=== PATIENT | female | born 1950 | race African-American/Black ===

== ENCOUNTER 2017-04-07 00:20 | Inpatient (IN) | payer OTHER ==
--- NOTE | 2017-04-07 00:35 | PDOC ---
History of Present Illness - General History Source: Family - History of Present Illness Initial Comments: 04/07/17 00:56 66 y/o F with a PMHx of craniotomy s/p brain tumor (1974), HTN. DM, CKD presents to the ED via EMS with AMS since noon. Patient was reportedly sleeping all day. Her home health aide took her out of bed to shower and the patient urinated on herself without realizing. Patient knows her name, what month it is. She has no focal neurological weakness or slurred speech. Family states she can usually name back all of her medications, but today she can only name two. Family is concerned because patient is not herself. Patient denies any complaints. <Lourdes Haines - Last Filed: 04/07/17 03:50> <Yuko Hi - Last Filed: 04/08/17 02:33> - General Stated Complaint: ALTERED MENTAL STATUS Time Seen by Provider: 04/07/17 00:34 Past History <Lourdes Haines - Last Filed: 04/07/17 03:50> - Past Medical History Seizures: Yes - Suicide/Smoking/Psychosocial Hx Smoking Status: No Smoking History: Never smoked Number of Cigarettes Smoked Daily: 0 Hx Alcohol Use: No Drug/Substance Use Hx: No Substance Use Type: None Hx Substance Use Treatment: No <Yuko Hi - Last Filed: 04/08/17 02:33> - Past Medical History Allergies/Adverse Reactions: Allergies Allergy/AdvReac Type Severity Reaction Status Date / Time No Known Allergies Allergy Verified 04/07/17 00:58 Home Medications: Ambulatory Orders Acetaminophen [Tylenol] 650 mg PO Q4H 10/13/12 Bromocriptine Mesylate [Parlodel -] 5 mg PO DAILY #0 tablet 10/16/12 Cortisone Acetate [Cortisone -] 25 mg PO DAILY #0 tablet 10/16/12 Levetiracetam [Keppra -] 500 mg PO BID #0 tablet 10/16/12 Metronidazole [Flagyl -] 250 mg PO Q6HPO #0 tablet 10/16/12 Atorvastatin Ca [Lipitor] 10 mg PO HS 04/07/17 Cholecalciferol (Vitamin D3) [Vitamin D3 -] 1,000 iu PO DAILY 04/07/17 Furosemide [Lasix -] 40 mg PO DAILY 04/07/17 Levothyroxine [Synthroid -] 175 mcg PO DAILY 04/07/17 Phenobarbital 40 mg PO DAILY 04/07/17 Phenobarbital - 30 mg PO TID 04/07/17 Potassium Chloride [K-Dur -] 10 meq PO DAILY 04/07/17 Review of Systems - Review of Systems Comments:: 04/07/17 01:10 GENERAL/CONSTITUTIONAL: No fever or chills. No weakness. HEAD, EYES, EARS, NOSE AND THROAT: No change in vision. No ear pain or discharge. No sore throat. CARDIOVASCULAR: No chest pain or shortness of breath. RESPIRATORY: No cough, wheezing, or hemoptysis. GASTROINTESTINAL: No nausea, vomiting, diarrhea or constipation. GENITOURINARY: No dysuria, frequency, or change in urination. MUSCULOSKELETAL: No joint or muscle swelling or pain. No neck or back pain. SKIN: No rash NEUROLOGIC: No headache, vertigo, loss of consciousness, or change in strength/ sensation. ENDOCRINE: No increased thirst. No abnormal weight change. HEMATOLOGIC/LYMPHATIC: No anemia, easy bleeding, or history of blood clots. ALLERGIC/IMMUNOLOGIC: No hives or skin allergy. <Lourdes Haines A - Last Filed: 04/07/17 03:50> *Physical Exam - Physical Exam Comments: 04/07/17 01:10 GENERAL: Awake, alert, in no acute distress. Obese. HEAD: No signs of trauma EYES: PERRLA, EOMI, sclera anicteric, conjunctiva clear ENT: Auricles normal inspection, hearing grossly normal, nares patent, oropharynx clear without exudates. Moist mucosa NECK: Normal ROM, supple, no lymphadenopathy, JVD, or masses LUNGS: Breath sounds equal, clear to auscultation bilaterally. No wheezes, and no crackles HEART: Regular rate and rhythm, normal S1 and S2, no murmurs, rubs or gallops ABDOMEN: Soft, nontender, normoactive bowel sounds. No guarding, no rebound. No masses EXTREMITIES: Normal range of motion, no edema. No clubbing or cyanosis. No cords, erythema, or tenderness NEUROLOGICAL: Cranial nerves II through XII grossly intact. No slurred speech, motor strength 5/5, follows simple commands SKIN: Warm, Dry, normal turgor, no rashes or lesions noted. <Lourdes Haines - Last Filed: 04/07/17 03:50> - Physical Exam General Appearance: Yes: Obese HEENT: positive: EOMI, MARJ, Normal Voice Neck: positive: Supple Respiratory/Chest: positive: Lungs Clear Cardiovascular: positive: Regular Rhythm, Regular Rate Gastrointestinal/Abdominal: positive: Protuberent Musculoskeletal: positive: Normal Inspection Extremity: positive: Normal Inspection Integumentary: positive: Normal Color, Warm Neurologic: positive: underwriting intern II-XII NML intact (family memebers say she appeared confused today,saying she would get out of bed but not moving.), Alert, Motor Strength 5/5 <Yuko Hi - Last Filed: 04/08/17 02:33> ED Treatment Course - LABORATORY CBC & Chemistry Diagram: 04/07/17 00:50 04/07/17 00:50 <Lourdes Haines - Last Filed: 04/07/17 03:50> - LABORATORY CBC & Chemistry Diagram: 04/07/17 06:10 04/07/17 06:10 <Yuko Hi - Last Filed: 04/08/17 02:33> *DC/Admit/Observation/Transfer - Attestations Scribe Attestion: 04/07/17 01:14 Documentation prepared by Lourdes Haines, acting as medical practice administrator for Yuko Hi MD. <Lourdes Haines - Last Filed: 04/07/17 03:50> <Yuko Hi - Last Filed: 04/08/17 02:33> Diagnosis at time of Disposition: Elevated LFTs, UTI (urinary tract infection), Change in mental status - Discharge Dispostion Condition at time of disposition: Fair - Referrals NIH Stroke Scale - Last Known Well Date/Time & Onset Date Last Known Well: 04/06/17 Time Last Known Well: 12:00 - Initial Evaluation Level of consciousness: Alert Ask patient the month and their age: Answers both correctly Ask patient to open & close eyes; make fist and let go: Obeys both correctly Best gaze (horizontal eye movement): Normal Visual field testing: No visual field loss Facial paresis (Show teeth/raise eyebrows/close eyes tight): Normal symmetrical movement Motor Function: Left Arm: Normal Motor Function: Right Arm: Normal (extends arm 90 (or 45) degrees for 10 seconds without drift Motor Function: Left Leg: Normal (extends leg 30 degrees for 5 seconds without drift) Motor Function: Right Leg: Normal (extends leg 30 degrees for 5 seconds without drift) Limb Ataxia: No ataxia Sensory(Use pinprick test arms,legs,trunk,face/side to side): Normal Best language (Describe picture, name items, read sentences): No Aphasia Dysarthria (read several words): Normal articulation Extinction and Inattention: No abnormality - Total Score NIH Stroke Scale Score: 0 <Yuko Hi - Last Filed: 04/08/17 02:33>
[2017-04-07 00:58] LABS: BASOPHIL 0.6 % (0-2.0); MCH 28.1 pg (25.7-33.7); MCHC 32.6 g/dl (32.0-36.0); MEAN CELL VOLUME 86.1 fl (80-96); MEAN PLT VOLUME 8.9 fl (7.5-11.1); NEUTROPHILS 76.8 % (42.8-82.8); PLATELET COUNT 229 K/MM3 (134-434); RDW 15.1 % (11.6-15.6); WHITE BLOOD COUNT 12.2 K/mm3 (4.0-10.0)
[2017-04-07 01:20] LABS: INR 1.42 (0.82-1.09); PROTHROMBIN TIME (PATIENT) 15.6 SEC (9.98-11.88)
[2017-04-07 01:22] LABS: ALBUMIN 3.2 g/dl (3.4-5.0); ANION GAP 10 (8-16); BILIRUBIN,TOTAL 6.4 mg/dL (0.2-1.0); CO2 24 mmol/L (21-32); CREATININE 1.3 mg/dL (0.55-1.02); GLUCOSE,RANDOM 87 mg/dL (74-106); SGOT/AST 218 U/L (15-37); SGPT/ALT 212 U/L (12-78); TOT PROT 6.6 g/dl (6.4-8.2)
[2017-04-07 01:24] LABS: ALK PHOS 170 U/L (45-117); CPK 281 IU/L (26-192); TROPONIN I 0.06 ng/ml (0.00-0.05)
[2017-04-07] MEDS ORDERED: SODIUM CHLORIDE 1,000 ML IV STA (01:35)
--- NOTE | 2017-04-07 02:27 | PDOC ---
*Physical Exam - Vital Signs Last Vital Signs Temp Pulse Resp BP Pulse Ox 101 F H 75 20 126/73 100 04/07/17 00:53 04/07/17 00:53 04/07/17 00:53 04/07/17 00:53 04/07/17 00:53 - Physical Exam Comments: 04/07/17 03:20 gen: aao, nad heart: +s1s2 reg lungs: cta b/l abd: soft, nt/nd +bs ext: no c/c/e ED Treatment Course - LABORATORY CBC & Chemistry Diagram: 04/07/17 00:50 04/07/17 00:50 - ADDITIONAL ORDERS Additional order review: Laboratory Results 04/07/17 04/07/17 00:50 00:50 PT with INR 15.60 H INR 1.42 H Sodium 147 H Potassium 3.7 Chloride 113 H Carbon Dioxide 24 Anion Gap 10 BUN 12 Creatinine 1.3 H D Creat Clearance w eGFR 40.73 Random Glucose 87 Calcium 8.0 L Total Bilirubin 6.4 H D AST 218 H D ALT 212 H D Alkaline Phosphatase 170 H D Creatine Kinase 281 H Creatine Kinase Index 0.3 CK-MB (CK-2) < 1.000 Troponin I 0.06 H Total Protein 6.6 Albumin 3.2 L D 04/07/17 00:50 RBC 4.67 MCV 86.1 MCHC 32.6 RDW 15.1 D MPV 8.9 Neutrophils % 76.8 D Lymphocytes % 14.1 D Monocytes % 7.5 Eosinophils % 1.0 D Basophils % 0.6 Medical Decision Making - Medical Decision Making 04/07/17 03:20 pt signed out pending UA and further eval of fever and altered MS -pt denies abd pain. No diarrhea. States 1 episode of vomiting earlier today. NO n/v since. Has tolerated PO. no acetaminophen use. Denies pain after eating. 04/07/17 03:35 pt with UTI, will start abx. pt will need admission for further eval of elevated LFTs, UTI, and change in MS. 04/07/17 03:52 case discussed with IM who accepts pt under Dr. hernandez. *DC/Admit/Observation/Transfer Diagnosis at time of Disposition: Elevated liver function tests, Urinary tract infection, Altered mental status - Discharge Dispostion Condition at time of disposition: Fair Admit: Yes - Referrals Referrals: William Mcconnell MD [Primary Care Provider] - - Patient Instructions - Post Discharge Activity - Attestations Physician Attestion: 04/07/17 03:54 I, Dr. Shannon Borges, DO, attest that this document has been prepared under my direction and personally reviewed by me in its entirety. I further attest, that it accurately reflects all work, treatment, procedures and medical decision -making performed by me.
[2017-04-07 02:44] LABS: URINE APPEARANCE SLCLOUDY; URINE BILIRUBIN NEGATIVE (NEGATIVE); URINE BLOOD 2+ (NEGATIVE); URINE COLOR AMBER; URINE GLUCOSE (UA) NEGATIVE (NEGATIVE); URINE KETONE NEGATIVE (NEGATIVE); URINE NITRITE NEGATIVE (NEGATIVE); URINE PROTEIN NEGATIVE (NEGATIVE); URINE UROBILINOGEN NEGATIVE mg/dL (0.2-1.0)
[2017-04-07 02:59] LABS: URINE BACTERIA RARE /hpf (NONE SEEN); URINE RBC 1 /hpf (0-3); URINE WBC 72 /hpf (3-5)
[2017-04-07] MEDS ORDERED: CEFTRIAXONE 1 GM in DEXTROSE 5%-WATER - 50 ML IVPB ONE (03:33)
[2017-04-07] MEDS ORDERED: CEFTRIAXONE 50 ML ONE (03:48)
--- NOTE | 2017-04-07 03:55 | PN ---
Teaching Attending Note Name of Resident: Romina Ogden ATTENDING PHYSICIAN STATEMENT I saw and evaluated the patient. I reviewed the resident's note and discussed the case with the resident. I agree with the resident's findings and plan as documented. SUBJECTIVE: 66 yo F with pmhx of craniotomy s/p tumor resection (95'),, CKD, who presents with lethargy. She has a aide, who states she urinated on herself. Family notes , her recall of meds is not the same. Pt. and family extremely uncooperative on interview and declined to answer ANY questions, information is gathered from chart. OBJECTIVE: Physical: VS: Vital Signs Period Temp Pulse Resp BP Sys/Saleem Pulse Ox Last 24 Hr 101 F 75 20 126/73 100 GEN: NAD, Resting in bed, AA0X3 (person, place and time), did NOT appear lethargic HEENT: NCAT, PERRL, throat without erythema or exudates CARD: RRR S1, S2 RESP: CTAB ABD: BSx4, NON-Tender to palpation EXT: +2 Pitting edema bilateral and equal and declined foot exam. CBCD WBC 12.2 K/mm3 (4.0-10.0) H D 04/07/17 00:50 RBC 4.67 M/mm3 (3.60-5.2) 04/07/17 00:50 Hgb 13.1 GM/dL (10.7-15.3) 04/07/17 00:50 Hct 40.2 % (32.4-45.2) 04/07/17 00:50 MCV 86.1 fl (80-96) 04/07/17 00:50 MCHC 32.6 g/dl (32.0-36.0) 04/07/17 00:50 RDW 15.1 % (11.6-15.6) D 04/07/17 00:50 Plt Count 229 K/MM3 (134-434) 04/07/17 00:50 MPV 8.9 fl (7.5-11.1) 04/07/17 00:50 CMP Sodium 147 mmol/L (136-145) H 04/07/17 00:50 Potassium 3.7 mmol/L (3.5-5.1) 04/07/17 00:50 Chloride 113 mmol/L (98-107) H 04/07/17 00:50 Carbon Dioxide 24 mmol/L (21-32) 04/07/17 00:50 Anion Gap 10 (8-16) 04/07/17 00:50 BUN 12 mg/dL (7-18) 04/07/17 00:50 Creatinine 1.3 mg/dL (0.55-1.02) H D 04/07/17 00:50 Creat Clearance w eGFR 40.73 (>60) 04/07/17 00:50 Random Glucose 87 mg/dL (74-106) 04/07/17 00:50 Calcium 8.0 mg/dL (8.5-10.1) L 04/07/17 00:50 Total Bilirubin 6.4 mg/dL (0.2-1.0) H D 04/07/17 00:50 AST 218 U/L (15-37) H D 04/07/17 00:50 ALT 212 U/L (12-78) H D 04/07/17 00:50 Alkaline Phosphatase 170 U/L (45-117) H D 04/07/17 00:50 Total Protein 6.6 g/dl (6.4-8.2) 04/07/17 00:50 Albumin 3.2 g/dl (3.4-5.0) L D 04/07/17 00:50 CARDIAC ENZYMES Creatine Kinase 281 IU/L (26-192) H 04/07/17 00:50 Troponin I 0.06 ng/ml (0.00-0.05) H 04/07/17 00:50 CXR-Pending Jossy shrestha basilar atelectasis EKG- ASSESSMENT AND PLAN: 66 yo F with pmhx of brain tumor s/p resection, CKD, who presents with lethargy found to be septic 1.) Sepsis - Possible secondary to UTI, ?abdominal pathology-ddx cholangitis - IVF - Abdominal US - Repeat LA - RHODES Cx - Empiric abx, recieved ceftriaxone in ED, add Flagyl for possible gallbladder path 2.) Acute Metabolic Encephalopathy - Stat Ammonia level - Abd us 3.) Transaminits with Hyperbilirubinemia - Chk.D.marj - Abdominal US - Hepatitis Panel 4.) CKD - Unknown Baseline - Last in hospital 2012 - Avoid nephrotoxins 5.) Dvt Ppx - Mod risk - Heparin [address] in Med-Sx
[2017-04-07] MEDS ORDERED: METRONIDAZOLE 500 MG PREMIXED 100 ML IVPB ONE ×2 (04:03→04:24)
--- NOTE | 2017-04-07 04:50 | HP ---
CHIEF COMPLAINT: AMS PCP: William Camp HISTORY OF PRESENT ILLNESS: 66yo F with PMH of craniotomy, seizures, presents with AMS since noon. Of note , hx was taken from the ED chart and previous EMR, as pt and family member were uncooperative and were annoyed that too many doctors had already come to speak to them. Pt was seen by her COAL PICKER today and was reportedly more tired than usual , and sleeping more than she usually does. Pt reportedly urinated on herself without realizing while her COAL PICKER was getting her out of bed for a shower per the chart. Pt denies fever, chills, chest pain, sob, diarrhea, constipation, or any urinary symptoms. Denies abdominal pain. One episode of vomiting reported from earlier today, no nausea/vomiting since. Pt has a hx of seizure disorder, although has been seizure-free. In the ED, pt was noted to be AAOx3, to have a mild leukocytosis, to be febrile to 101, and to have elevated LFTs. Patient usually able to recall all meds and dose currently unsure. ER course was notable for: (1) EKG, CXR, Head CT non-contrast (2) Rocephin (3) NS 1 L bolus PAST MEDICAL HISTORY: [place] hypopituitarism brain ca s/p resection hypothyroidism seizures PAST SURGICAL HISTORY: craniotomy Social History: Smoking: never Alcohol: none Drugs: none Lives at home. Has a Home Health Aide. Allergies No Known Allergies Allergy (Verified 04/07/17 00:58) HOME MEDICATIONS: Home Medications Medication Instructions Recorded Acetaminophen [Tylenol] 650 mg PO Q4H 10/13/12 Bromocriptine Mesylate [Parlodel 5 mg PO DAILY 10/13/12 (NF)] Levothyroxine [Synthroid] 200 mcg PO DAILY 10/13/12 Bromocriptine Mesylate [Parlodel -] 5 mg PO DAILY #0 tablet 10/16/12 Cortisone Acetate [Cortisone -] 25 mg PO DAILY #0 tablet 10/16/12 Levetiracetam [Keppra -] 500 mg PO BID #0 tablet 10/16/12 Levothyroxine [Synthroid -] 200 mcg PO DAILY@0700 #0 tablet 10/16/12 Metronidazole [Flagyl -] 250 mg PO Q6HPO #0 tablet 10/16/12 REVIEW OF SYSTEMS deferred PHYSICAL EXAMINATION deferred Vital Signs - 24 hr 04/07/17 00:53 Temperature 101 F H Pulse Rate 75 Respiratory 20 Rate Blood Pressure 126/73 O2 Sat by Pulse 100 Oximetry (%) Laboratory Results - last 24 hr 04/07/17 04/07/17 04/07/17 00:50 00:50 00:50 WBC 12.2 H D RBC 4.67 Hgb 13.1 Hct 40.2 MCV 86.1 MCH 28.1 MCHC 32.6 RDW 15.1 D Plt Count 229 MPV 8.9 Neutrophils % 76.8 D Lymphocytes % 14.1 D Monocytes % 7.5 Eosinophils % 1.0 D Basophils % 0.6 PT with INR 15.60 H INR 1.42 H Sodium 147 H Potassium 3.7 Chloride 113 H Carbon Dioxide 24 Anion Gap 10 BUN 12 Creatinine 1.3 H D Creat Clearance w eGFR 40.73 Random Glucose 87 Lactic Acid Calcium 8.0 L Total Bilirubin 6.4 H D AST 218 H D ALT 212 H D Alkaline Phosphatase 170 H D Creatine Kinase 281 H Creatine Kinase Index 0.3 CK-MB (CK-2) < 1.000 Troponin I 0.06 H Total Protein 6.6 Albumin 3.2 L D Urine Color Urine Appearance Urine pH Urine Protein Urine Glucose (UA) Urine Ketones Urine Blood Urine Nitrite Urine Bilirubin Urine Urobilinogen Urine RBC Urine WBC Ur Epithelial Cells Urine Bacteria Acetaminophen 04/07/17 04/07/17 04/07/17 02:10 02:10 02:30 WBC RBC Hgb Hct MCV MCH MCHC RDW Plt Count MPV Neutrophils % Lymphocytes % Monocytes % Eosinophils % Basophils % PT with INR INR Sodium Potassium Chloride Carbon Dioxide Anion Gap BUN Creatinine Creat Clearance w eGFR Random Glucose Lactic Acid 1.6 Calcium Total Bilirubin AST ALT Alkaline Phosphatase Creatine Kinase Creatine Kinase Index CK-MB (CK-2) Troponin I Total Protein Albumin Urine Color Melony Urine Appearance Slcloudy Urine pH 7.0 D Urine Protein Negative Urine Glucose (UA) Negative Urine Ketones Negative Urine Blood 2+ H Urine Nitrite Negative Urine Bilirubin Negative Urine Urobilinogen Negative Urine RBC 1 Urine WBC 72 Ur Epithelial Cells Rare Urine Bacteria Rare Acetaminophen < 2.0 L IMAGING: CXR - on my preliminary read, no acute pathology Head CT non-contrast - pending EKG - NSR ASSESSMENT/PLAN: 66yo F with multiple medical problems presents with AMS found to have sepsis, transaminitis, and a UTI. 1) severe sepsis/leukocytosis - likely 2/2 UTI, but a biliary/liver source cannot be excluded with elevated T. bili and LFTs (concern for biliary source) - pt already received Ceftriaxone in ED - will give a dose of Flagyl now to cover gallbladder source - RUQ US to assess for gallbladder obstruction - f/u cultures - ID consult - trend WBC count 2) transaminitis - cannot exclude a biliary source of infection vs shock liver (no documented hypotension) vs autoimmune disease - RUQ US - anti-smooth muscle antibody - hepatitis panel - trend LFTs - fractionate bilirubin - consider GI consult and MRCP based on US results 3) elevated PT/INR - likely 2/2 acute liver process - will trend INR 4) elevated troponin - likely related to demand ischemia 2/2 sepsis - R/O ACS - pt denies chest pain - trend troponins 5) dehydration - pt has dry mucous membranes with a mild hypernatremia - IVFs for hydration - trend Na+ 6) SANJEEV - likely 2/2 sepsis - give IVFs for hydration - trend Cr - avoid nephrotoxic drugs 7) hyperthyroidism - restart Synthroid - check TSH level 8) AMS - likely 2/2 an infectious encephalopathy from UTI vs biliary source - stat ammonia level - treat underlying UTI - pt is currently AAOx3 9) seizure disorder - currently seizure-free - restart keppra 10) brain tumor - restart bromocriptine 11) FEN - Fluids: Lactated Ringers @ 75 ml/hr - Electrolytes: hypernatremia - Nutrition: npo for now 12) Ppx - SCDs / Heparin SQ TID - no GI ppx indicated at this time - PT consult Case discussed with attending. Meds need to be verified Visit type - Emergency Visit Emergency Visit: Yes Care time: The patient presented to the Emergency Department on the above date and was hospitalized for further evaluation of their emergent condition. - New Patient This patient is new to me today: Yes Date on this admission: 04/07/17 - Critical Care Critical Care patient: No
[2017-04-07 06:20] LABS: BASOPHIL 0.5 % (0-2.0); EOSINOPHIL 1.5 % (0-4.5); MCH 29.1 pg (25.7-33.7); MCHC 34.1 g/dl (32.0-36.0); MEAN CELL VOLUME 85.4 fl (80-96); MEAN PLT VOLUME 8.7 fl (7.5-11.1); NEUTROPHILS 80.7 % (42.8-82.8); PLATELET COUNT 214 K/MM3 (134-434); RDW 15.2 % (11.6-15.6); WHITE BLOOD COUNT 10.2 K/mm3 (4.0-10.0)
[2017-04-07 06:38] LABS: ACTIVATED PTT 32.6 SECONDS (26.9-34.4)
[2017-04-07 06:52] LABS: ANION GAP 9 (8-16); CALCIUM 7.7 mg/dL (8.5-10.1); CO2 25 mmol/L (21-32); GLUCOSE,RANDOM 83 mg/dL (74-106); MAGNESIUM 2.4 mg/dL (1.8-2.4)
[2017-04-07 06:53] LABS: CREATININE 1.3 mg/dL (0.55-1.02); PHOSPHOROUS 3.6 mg/dL (2.5-4.9)
[2017-04-07 06:57] LABS: ALK PHOS 158 U/L (45-117); BILIRUBIN,DIRECT 5.7 mg/dL (0.0-0.2); BILIRUBIN,TOTAL 6.8 mg/dL (0.2-1.0); CPK 267 IU/L (26-192); SGOT/AST 158 U/L (15-37); SGPT/ALT 178 U/L (12-78); TOT PROT 6.2 g/dl (6.4-8.2); TROPONIN I 0.05 ng/ml (0.00-0.05)
[2017-04-07] MEDS: LACTATED RINGERS SOLUTION 1,000 ML IV SCH ×2 (07:17→09:37)
[2017-04-07 08:00] LABS: INR 1.46 (0.82-1.09); PROTHROMBIN TIME (PATIENT) 16.1 SEC (9.98-11.88)
[2017-04-07 08:59] LABS: URINE LEUK ESTERASE 1+ (NEGATIVE)
[2017-04-07] MEDS: HEPARIN NA (PORCINE) 5,000 UNITS/ML 1ML VIAL SQ SCH ×2 (09:38→17:59)
[2017-04-07] MEDS: METRONIDAZOLE 500 MG PREMIXED 100 ML IVPB SCH ×2 (09:38→17:58)
[2017-04-07] MEDS ORDERED: levETIRAcetam 500 MG TABLET (FP) PO SCH (10:00)
[2017-04-07 10:49] VITALS: BMI 37.0
[2017-04-07 12:33] LABS: CPK 271 IU/L (26-192); TROPONIN I 0.04 ng/ml (0.00-0.05)
--- NOTE | 2017-04-07 13:41 | CON.GI ---
Consult Consult Specialty:: GI Reason for Consultation:: elevated liver enzymes - History of Present Illness History of Present Illness: Admitted overnight with fever, leukocytosis, hypernatriemia and mild renal insuficiency. Diagnosis of sepsis secondary to UTI was made. Patient admitted for treatment. Also noted to have elevated LFT, ALP and D. bili. Lipase normal. RUQ US revealed cholelithiasis, no signs of inflammation, normal CBD and pancrease. Denies postprandial symptoms, abdominal pain in general, jaundice, nausea, or vomiting. Denies dysphagia, odynophagia, GERD-like symptoms. - History Source History Provided By: Patient, Medical Record Limitations to Obtaining History: Poor Historian - Past Medical History Gastrointestinal: No: Ascites, Cancer, Crohn's Disease, Diverticulitis, Esophageal Varices, GI Bleed, Inflamatory Bowel Disease, Pancreatitis, Peptic Ulcer Disease, Ulcerative Colitis Hepatobiliary: No: Cholelithiasis, Cholecystitis, Choledocholithiasis Additional Medical History: HP/Chart reviewed. See HP - Alcohol/Substance Use Hx Alcohol Use: No - Smoking History Smoking history: Never smoked Have you smoked in the past 12 months: No Aproximately how many cigarettes per day: 0 Home Medications - Allergies Allergies/Adverse Reactions: Allergies Allergy/AdvReac Type Severity Reaction Status Date / Time No Known Allergies Allergy Verified 04/07/17 00:58 - Home Medications Home Medications: Ambulatory Orders Acetaminophen [Tylenol] 650 mg PO Q4H 10/13/12 Bromocriptine Mesylate [Parlodel (NF)] 5 mg PO DAILY 10/13/12 Levothyroxine [Synthroid] 200 mcg PO DAILY 10/13/12 Bromocriptine Mesylate [Parlodel -] 5 mg PO DAILY #0 tablet 10/16/12 Cortisone Acetate [Cortisone -] 25 mg PO DAILY #0 tablet 10/16/12 Levetiracetam [Keppra -] 500 mg PO BID #0 tablet 10/16/12 Levothyroxine [Synthroid -] 200 mcg PO DAILY@0700 #0 tablet 10/16/12 Metronidazole [Flagyl -] 250 mg PO Q6HPO #0 tablet 10/16/12 Phenobarbital 40 mg PO DAILY 04/07/17 Family Disease History - Family Disease History Family History: Unremarkable Review of Systems Findings/Remarks: Please see HP for ROS Physical Exam-GI Vital Signs: Vital Signs Temperature 98.4 F 04/07/17 08:00 Pulse Rate 80 04/07/17 08:00 Respiratory Rate 18 04/07/17 08:00 Blood Pressure 138/78 04/07/17 08:00 O2 Sat by Pulse Oximetry (%) 100 04/07/17 08:00 Constitutional: Yes: No Distress, Calm Eyes: Yes: Conjunctiva Clear HENT: Yes: Atraumatic Neck: Yes: Supple Cardiovascular: Yes: Regular Rate and Rhythm Respiratory: Yes: Regular, CTA Bilaterally Gastrointestinal Inspection: No: Ascites, Distention ...Auscultate: Yes: Normoactive Bowel Sounds ...Palpate: Yes: Guarding (RUQ, voluntary), Tenderness (RUQ). No: Tenderness, Epigastium, Tenderness, Rebound ...Percussion: Yes: Tympanitic. No: Fluid Wave Musculoskeletal: No: Joint Stiffness, Joint Swelling Integumentary: No: Jaundice Neurological: Yes: Alert, Oriented Labs: CBC, BMP Hepatic Panel Total Bilirubin 6.8 mg/dL (0.2-1.0) H 04/07/17 06:10 Direct Bilirubin 5.7 mg/dL (0.0-0.2) H 04/07/17 06:10 AST 158 U/L (15-37) H D 04/07/17 06:10 ALT 178 U/L (12-78) H 04/07/17 06:10 Alkaline Phosphatase 158 U/L (45-117) H 04/07/17 06:10 Albumin 3.0 g/dl (3.4-5.0) L 04/07/17 06:10 CBCD WBC 10.2 K/mm3 (4.0-10.0) H 04/07/17 06:10 RBC 4.37 M/mm3 (3.60-5.2) 04/07/17 06:10 Hgb 12.7 GM/dL (10.7-15.3) 04/07/17 06:10 Hct 37.3 % (32.4-45.2) 04/07/17 06:10 MCV 85.4 fl (80-96) 04/07/17 06:10 MCHC 34.1 g/dl (32.0-36.0) 04/07/17 06:10 RDW 15.2 % (11.6-15.6) 04/07/17 06:10 Plt Count 214 K/MM3 (134-434) 04/07/17 06:10 MPV 8.7 fl (7.5-11.1) 04/07/17 06:10 CMP Sodium 147 mmol/L (136-145) H 04/07/17 06:10 Potassium 4.2 mmol/L (3.5-5.1) 04/07/17 06:10 Chloride 113 mmol/L (98-107) H 04/07/17 06:10 Carbon Dioxide 25 mmol/L (21-32) 04/07/17 06:10 Anion Gap 9 (8-16) 04/07/17 06:10 BUN 11 mg/dL (7-18) 04/07/17 06:10 Creatinine 1.3 mg/dL (0.55-1.02) H 04/07/17 06:10 Creat Clearance w eGFR 40.73 (>60) 04/07/17 00:50 Calcium 7.7 mg/dL (8.5-10.1) L 04/07/17 06:10 Total Bilirubin 6.8 mg/dL (0.2-1.0) H 04/07/17 06:10 AST 158 U/L (15-37) H D 04/07/17 06:10 ALT 178 U/L (12-78) H 04/07/17 06:10 Alkaline Phosphatase 158 U/L (45-117) H 04/07/17 06:10 Total Protein 6.2 g/dl (6.4-8.2) L 04/07/17 06:10 Albumin 3.0 g/dl (3.4-5.0) L 04/07/17 06:10 INR, PTT INR 1.46 (0.82-1.09) H 04/07/17 06:10 Vital Signs - 24 hr 04/07/17 04/07/17 04/07/17 00:53 02:14 07:18 Temperature 101 F H 98.6 F Pulse Rate 75 Pulse Rate [ 72 Left] Respiratory 20 20 Rate Blood Pressure 126/73 Blood Pressure 122/72 [Right Arm] O2 Sat by Pulse 100 100 100 Oximetry (%) 04/07/17 08:00 Temperature 98.4 F Pulse Rate 80 Pulse Rate [ Left] Respiratory 18 Rate Blood Pressure 138/78 Blood Pressure [Right Arm] O2 Sat by Pulse 100 Oximetry (%) Vital Signs (72 hours) 04/07/17 04/07/17 04/07/17 00:53 02:14 07:18 Temperature 101 F H 98.6 F Pulse Rate 75 Pulse Rate [ 72 Left] Respiratory 20 20 Rate Blood Pressure 126/73 Blood Pressure 122/72 [Right Arm] O2 Sat by Pulse 100 100 100 Oximetry (%) 04/07/17 08:00 Temperature 98.4 F Pulse Rate 80 Pulse Rate [ Left] Respiratory 18 Rate Blood Pressure 138/78 Blood Pressure [Right Arm] O2 Sat by Pulse 100 Oximetry (%) Current Medications Generic Name Dose Route Start Last Admin Trade Name Freq PRN Reason Stop Dose Admin Heparin Sodium (Porcine) 5,000 unit 04/07/17 10:00 04/07/17 09:38 Heparin - SQ Not Given Q8H-IV TANG CEFTRIAXONE 1 G/50 ML PREMIX 50 mls @ 100 mls/hr 04/07/17 10:00 Ceftriaxone 1 Gm-D5w Bag IVPB DAILY TANG Metronidazole 100 mls @ 100 mls/hr 04/07/17 10:00 04/07/17 09:38 Flagyl 500mg Premixed Ivpb - IVPB 100 mls/hr Q8H-IV TANG Administration Lactated Ringer's 1,000 mls @ 75 mls/hr 04/07/17 05:00 04/07/17 09:37 Lactated Ringers Solution IV 75 mls/hr ASDIR TANG Administration Levetiracetam 500 mg 04/07/17 10:00 04/07/17 09:38 Keppra - PO Not Given BID TANG Imaging - Results X-ray: Report Reviewed Ultrasound: Report Reviewed Problem List - Problems (1) Cholelithiasis and cholecystitis with obstruction Assessment/Plan: Fever, leukocytosis, cholestasis with hepatitis and cholelithiasis. Positive Herrera's RUQ US negative for obvious inflammation, choledoclithiasis, dilated CBD, obstruction. AST, ALT, ALP appear to be improving Cannot undergo an MRCP due to cardiac pacemaker Normal Lipase. HIDA scan pending Agree with Abx to cover for possible cholangitis NPO/IVF Monitor vital signs, ALP, Bili, transaminases, WBC Surgery to evaluate for cholecystectomy with intraoperative cholangiogram, followed by ERCP, if positive. Viral profile Code(s): K80.19 - CALCULUS OF GALLBLADDER W OTH CHOLECYSTITIS WITH OBSTRUCTION Qualifiers: Cholecystitis acuity: acute Medical/Surgical History - Patient Medical History Hx Hypertension: Yes Hx Pacemaker: Yes (Inserted October 2014) Hx Seizures: Yes Hx Depression: No Hx Suicide Attempt: No - Patient Surgical History Past Surgical History: No Hx Neurologic Surgery: Yes (craniotomy in 1974)
--- NOTE | 2017-04-07 13:42 | PN ---
Teaching Attending Note Name of Resident: Sharon Wood ATTENDING PHYSICIAN STATEMENT I saw and evaluated the patient. I reviewed the resident's note and discussed the case with the resident. I agree with the resident's findings and plan as documented. SUBJECTIVE: pt denies any pain, has no N/V. cousin at bedside reports improvement in mental status. OBJECTIVE: NAD , Awake , alert oriented x 3. HEENT: MMM, noLAP inneck , no facial droop Cv: RRR, 2/6 SM RUSB, 2/6 DM at apex. Lungs : CTAB ABd: soft, TTP in RUQ , with Positive Herrera's . NL BS . no Hepatomegaly Ext: no edema , no erythema Neuro : AAOx3, no facial droop, uvula and tongue at mid line. nl facial sensation . EOMI, round equal pupils . strength 5/5 in upper and lower extremities proximally and distally . 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 improved after IVF and Abx. neuro exam is not focal 2- UTI: - cont Ctx , follow urine cx 3- Transaminitis , with obstructive picture. + Herrera's . US with gall stones concern for ascending cholangitis with her presentation. LFTS slightly improved, which indicates possibly resolution of obstruction ( passed a stone ) unfortunately can't obtain MRCP due to PPM - check HIDa scan , also will give idea about CBD obstruction - if LFTS start to increase again, then will need MRCP - GI consult and will obtain surgery consult. Might need intra-operative cholangiogram. - trend LFTS - Ceftriasone and flagyl . follow blood cx - IVF 4- h/o siezures: - cont keppra , - resume phenobarbital - meds to be confirmed with pharmacy 5- hypothyroidism : cont synthroid Meds to be confirmed
--- NOTE | 2017-04-07 14:39 | PN ---
Physical Exam: SUBJECTIVE: Patient seen and examined More alert today. Says she feels better. Does not remember why she came in yesterday, but remembers her medications. OBJECTIVE: Vital Signs Period Temp Pulse Resp BP Sys/Saleem Pulse Ox Last 24 Hr 98.4 F-98.6 F 65-80 16-20 122-141/72-78 100-100 GENERAL: The patient is awake, alert, and fully oriented X3, in no acute distress. HEAD: Normal with no signs of trauma. ENT: Ears normal, nares patent, oropharynx clear without exudates, moist mucous membranes. LUNGS: Breath sounds equal, clear to auscultation bilaterally, no wheezes, no crackles, no accessory muscle use. HEART: Regular rate and rhythm, S1, S2 with 2/6 SM RUSB, 2/6 DM murmur ABDOMEN: Soft, murphys+ sign, nondistended, normoactive bowel sounds, RUQ guarding, no rebound. EXTREMITIES: 2+ pulses, warm, well-perfused, mild pedal edema. NEUROLOGICAL: AO x3. No facial droop, Tongue and uvula not deviated. Muscle strength 5/5 , normal tone and reflexes globally. Normal speech, gait not observed. Laboratory Results - last 24 hr 04/07/17 04/07/17 04/07/17 06:10 06:10 06:10 WBC 10.2 H RBC 4.37 Hgb 12.7 Hct 37.3 MCV 85.4 MCH 29.1 MCHC 34.1 RDW 15.2 Plt Count 214 MPV 8.7 Neutrophils % 80.7 Lymphocytes % 10.6 D Monocytes % 6.7 Eosinophils % 1.5 Basophils % 0.5 PT with INR 16.10 H INR 1.46 H PTT (Actin FS) 32.6 Sodium Potassium Chloride Carbon Dioxide Anion Gap BUN Creatinine Random Glucose Calcium Phosphorus Magnesium Total Bilirubin Direct Bilirubin AST ALT Alkaline Phosphatase Ammonia 26.98 Creatine Kinase Creatine Kinase Index CK-MB (CK-2) Troponin I Total Protein Albumin Lipase 04/07/17 04/07/17 04/07/17 06:10 06:10 06:10 WBC RBC Hgb Hct MCV MCH MCHC RDW Plt Count MPV Neutrophils % Lymphocytes % Monocytes % Eosinophils % Basophils % PT with INR INR PTT (Actin FS) Sodium 147 H Potassium 4.2 Chloride 113 H Carbon Dioxide 25 Anion Gap 9 BUN 11 Creatinine 1.3 H Random Glucose 83 Calcium 7.7 L Phosphorus 3.6 Magnesium 2.4 Total Bilirubin 6.8 H Direct Bilirubin 5.7 H AST 158 H D ALT 178 H Alkaline Phosphatase 158 H Ammonia Creatine Kinase 267 H Creatine Kinase Index 0.3 CK-MB (CK-2) < 1.000 Troponin I 0.05 Total Protein 6.2 L Albumin 3.0 L Lipase 78 Cancelled 04/07/17 11:56 WBC RBC Hgb Hct MCV MCH MCHC RDW Plt Count MPV Neutrophils % Lymphocytes % Monocytes % Eosinophils % Basophils % PT with INR INR PTT (Actin FS) Sodium Potassium Chloride Carbon Dioxide Anion Gap BUN Creatinine Random Glucose Calcium Phosphorus Magnesium Total Bilirubin Direct Bilirubin AST ALT Alkaline Phosphatase Ammonia Creatine Kinase 271 H Creatine Kinase Index 0.3 CK-MB (CK-2) < 1.000 Troponin I 0.04 Total Protein Albumin Lipase Active Medications Generic Name Dose Route Start Last Admin Trade Name Freq PRN Reason Stop Dose Admin Heparin Sodium (Porcine) 5,000 unit 04/07/17 10:00 04/07/17 09:38 Heparin - SQ Not Given Q8H-IV TANG CEFTRIAXONE 1 G/50 ML PREMIX 50 mls @ 100 mls/hr 04/07/17 10:00 Ceftriaxone 1 Gm-D5w Bag IVPB DAILY TANG Metronidazole 100 mls @ 100 mls/hr 04/07/17 10:00 04/07/17 09:38 Flagyl 500mg Premixed Ivpb - IVPB 100 mls/hr Q8H-IV TANG Administration Lactated Ringer's 1,000 mls @ 75 mls/hr 04/07/17 05:00 04/07/17 09:37 Lactated Ringers Solution IV 75 mls/hr ASDIR TANG Administration Levetiracetam 500 mg 04/07/17 10:00 04/07/17 09:38 Keppra - PO Not Given BID TANG ASSESSMENT/PLAN: 66yo F with HTN, DM, CKD, CAD, seizure disorder,hypothryroidism, panhypopitutitarism, 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 1) severe sepsis/leukocytosis - likely 2/2 UTI, baes on leukocytosis, temp 101, UA- LE+, WBCs - on Ceftriaxone 1g - Flagyl 500mg Q8H - cultures- pending - WBC count trending down 2) Acute cholecystitis R/O Acute cholangitis: - with the AMS, fever and gall bladder stones - Obstructive picture-elevated Tbili and D bili, and Alkaline Phosph, -shock liver unlikely because she was not hypotensive, not likely autoimmune disease - [place] sign + - RUQ US -showed contracted gall bladder with multiple stones - anti-smooth muscle antibody - hepatitis panel - trend LFTs - GI consult -seen, likely ERCP after surgery consult - Surgery consult-Dr Brooke - MRCP - not possible px has pacemaker, - HIDA scan pending 3) elevated PT/INR - likely 2/2 acute liver process - will trend INR 4) elevated troponin: trending down - likely related to demand ischemia 2/2 sepsis - pt denies chest pain - trend troponins 5) dehydration - pt has dry mucous membranes with a mild hypernatremia - IVFs for hydration - trend Na+ 6) SANJEEV on CKD: Documented CKD per primary - likely 2/2 sepsis - give IVFs for hydration - trend Cr - avoid nephrotoxic drugs 7) hyperthyroidism - restart Synthroid 8) AMS - likely 2/2 an infectious encephalopathy from UTI vs biliary source - treat underlying UTI - pt is currently AAOx3 9) seizure disorder - currently seizure-free - restart keppra- patient is on phenobarb at home, will review 10) brain tumor - restart bromocriptine 11) FEN - Fluids: Lactated Ringers @ 75 ml/hr - Electrolytes: hypernatremia - Nutrition: npo for now 12) Ppx - SCDs / Heparin SQ TID - no GI ppx indicated at this time - PT consult Visit type - Emergency Visit Emergency Visit: Yes ED Registration Date: 04/07/17 Care time: The patient presented to the Emergency Department on the above date and was hospitalized for further evaluation of their emergent condition. - New Patient This patient is new to me today: Yes Date on this admission: 04/07/17 - Critical Care Critical Care patient: No - Discharge Referral Referred to [facility] Med P.C[facility] No
[2017-04-07] MEDS ORDERED: HYDROCORTISONE 20 MG TABLET PO ONE (16:57)
[2017-04-07] MEDS ORDERED: LEVOTHYROXINE NA 175 MCG TABLET PO ONE (17:02)
[2017-04-07] MEDS ORDERED: LEVOTHYROXINE 100 MCG, LEVOTHYROXINE 75 MCG PO ONE (17:30)
[2017-04-07] MEDS ORDERED: LEVOTHYROXINE NA 100 MCG TABLET (FP) ONE (17:55)
[2017-04-07] MEDS ORDERED: LEVOTHYROXINE NA 75 MCG TABLET (FP) ONE (17:55)
[2017-04-07] MEDS: PHENobarbital 30 MG TABLET PO SCH (17:58)
[2017-04-07] MEDS: CEFTRIAXONE 1 G/50 ML PREMIX 50 ML IVPB SCH (17:58)
[2017-04-07] MEDS ORDERED: DEXTROSE 5%-0.45% SALINE 1,000 ML IV SCH (19:45)
--- NOTE | 2017-04-07 22:13 | EKG ---
Test Reason : Blood Pressure : / mmHG Vent. Rate : 067 BPM Atrial Rate : 067 BPM P-R Int : 158 ms QRS Dur : 090 ms QT Int : 450 ms P-R-T Axes : 052 -10 014 degrees QTc Int : 475 ms NORMAL SINUS RHYTHM BASELINE ARTIFACT IN LEADS V4-V6 NONSPECIFIC ST ABNORMALITY ABNORMAL ECG WHEN COMPARED WITH ECG OF 15-OCT-2012 11:53, VENT. RATE HAS INCREASED BY 27 BPM QT HAS LENGTHENED SUGGEST FOLLOW UP EKG Confirmed by EVARISTO FOSS MD ([id number]) on 04/07/2017 10:12:57 PM Referred By: Confirmed By:EVARISTO FOSS MD
[2017-04-08] MEDS: PHENobarbital 30 MG TABLET PO SCH ×3 (00:38→16:36)
[2017-04-08] MEDS: METRONIDAZOLE 500 MG PREMIXED 100 ML IVPB SCH ×3 (02:17→17:34)
[2017-04-08] MEDS: HEPARIN NA (PORCINE) 5,000 UNITS/ML 1ML VIAL SQ SCH ×3 (02:18→17:34)
[2017-04-08 08:11] LABS: BASOPHIL 0.2 % (0-2.0); EOSINOPHIL 2.3 % (0-4.5); MCH 28.3 pg (25.7-33.7); MCHC 33.1 g/dl (32.0-36.0); MEAN CELL VOLUME 85.3 fl (80-96); MEAN PLT VOLUME 9.3 fl (7.5-11.1); NEUTROPHILS 78.2 % (42.8-82.8); PLATELET COUNT 182 K/MM3 (134-434); RDW 15.5 % (11.6-15.6); WHITE BLOOD COUNT 9.3 K/mm3 (4.0-10.0)
[2017-04-08 08:23] LABS: ANION GAP 9 (8-16); CALCIUM 8.2 mg/dL (8.5-10.1); CO2 24 mmol/L (21-32); GLUCOSE,RANDOM 78 mg/dL (74-106); SGOT/AST 67 U/L (15-37)
[2017-04-08 08:28] LABS: ALK PHOS 173 U/L (45-117); BILIRUBIN,TOTAL 6.5 mg/dL (0.2-1.0); CREATININE 1.1 mg/dL (0.55-1.02); SGPT/ALT 116 U/L (12-78); TOT PROT 6.3 g/dl (6.4-8.2)
[2017-04-08 08:43] LABS: INR 1.36 (0.82-1.09)
--- NOTE | 2017-04-08 08:43 | PN ---
Progress Note, Physician Chief Complaint: Tmax 102. c/o RUQ tenderness - Current Medication List Current Medications: Active Medications Heparin Sodium (Porcine) (Heparin -) 5,000 unit SQ Q8H-IV ATNG Last Admin: 04/08/17 02:18 Dose: Not Given Hydrocortisone (Cortef -) 5 mg PO DAILY@1800 TANG Hydrocortisone (Cortef -) 20 mg PO DAILY TANG CEFTRIAXONE 1 G/50 ML PREMIX (Ceftriaxone 1 Gm-D5w Bag) 50 mls @ 100 mls/hr IVPB DAILY [facility] Last Admin: 04/07/17 17:58 Dose: 100 mls/hr Metronidazole (Flagyl 500mg Premixed Ivpb -) 100 mls @ 100 mls/hr IVPB Q8H-IV TANG Last Admin: 04/08/17 02:17 Dose: 100 mls/hr Dextrose/Sodium Chloride (D5-1/2ns -) 1,000 mls @ 50 mls/hr IV ASDIR [facility] Stop: 04/08/17 10:44 Last Admin: 04/07/17 22:13 Dose: 50 mls/hr Phenobarbital (Phenobarbital -) 30 mg PO Q8H [facility] Last Admin: 04/08/17 00:38 Dose: 30 mg - Objective Vital Signs: Vital Signs Temperature 98.4 F 04/08/17 06:00 Pulse Rate 63 04/08/17 06:00 Respiratory Rate 20 04/08/17 06:00 Blood Pressure 156/64 04/08/17 06:00 O2 Sat by Pulse Oximetry (%) 100 04/07/17 21:00 Constitutional: Yes: No Distress, Calm Eyes: Yes: Conjunctiva Clear HENT: Yes: Atraumatic Neck: Yes: Supple Cardiovascular: Yes: Regular Rate and Rhythm Respiratory: Yes: Regular Gastrointestinal: Yes: Soft, Tenderness (RUQ). No: Distention, Vomiting Labs: CBC, BMP 04/08/17 05:35 04/08/17 05:35 INR, PTT INR 1.46 (0.82-1.09) H 04/07/17 06:10 Laboratory Results - last 24 hr 04/07/17 04/07/17 04/07/17 02:30 06:10 06:10 WBC RBC Hgb Hct MCV MCH MCHC RDW Plt Count MPV Neutrophils % Lymphocytes % Monocytes % Eosinophils % Basophils % Sodium Potassium Chloride Carbon Dioxide Anion Gap BUN Creatinine Creat Clearance w eGFR POC Glucometer Random Glucose Calcium Total Bilirubin 6.8 H Direct Bilirubin 5.7 H AST 158 H D ALT 178 H Alkaline Phosphatase 158 H Creatine Kinase 267 H Creatine Kinase Index 0.3 CK-MB (CK-2) < 1.000 Troponin I 0.05 Total Protein 6.2 L Albumin 3.0 L Triglycerides Total LDL Cholesterol HDL Cholesterol Lipase 78 Urine Color Melony Urine Appearance Slcloudy Urine pH 7.0 D Ur Specific [place] 1.015 Urine Protein Negative Urine Glucose (UA) Negative Urine Ketones Negative Urine Blood 2+ H Urine Nitrite Negative Urine Bilirubin Negative Urine Urobilinogen Negative Ur Leukocyte Esterase 1+ H Urine RBC 1 Urine WBC 72 Ur Epithelial Cells Rare Urine Bacteria Rare Hepatitis A IgM Ab Negative Hep Bs Antigen Negative Hep B Core IgM Ab Negative Hepatitis C Ab (EIA) <0.1 04/07/17 04/07/17 04/08/17 11:56 18:56 05:35 WBC 9.3 RBC 4.30 Hgb 12.2 Hct 36.7 MCV 85.3 MCH 28.3 MCHC 33.1 RDW 15.5 Plt Count 182 MPV 9.3 Neutrophils % 78.2 Lymphocytes % 13.1 D Monocytes % 6.2 Eosinophils % 2.3 Basophils % 0.2 Sodium Potassium Chloride Carbon Dioxide Anion Gap BUN Creatinine Creat Clearance w eGFR POC Glucometer 81 Random Glucose Calcium Total Bilirubin Direct Bilirubin AST ALT Alkaline Phosphatase Creatine Kinase 271 H Creatine Kinase Index 0.3 CK-MB (CK-2) < 1.000 Troponin I 0.04 Total Protein Albumin Triglycerides Total LDL Cholesterol HDL Cholesterol Lipase Urine Color Urine Appearance Urine pH Ur Specific [place] Urine Protein Urine Glucose (UA) Urine Ketones Urine Blood Urine Nitrite Urine Bilirubin Urine Urobilinogen Ur Leukocyte Esterase Urine RBC Urine WBC Ur Epithelial Cells Urine Bacteria Hepatitis A IgM Ab Hep Bs Antigen Hep B Core IgM Ab Hepatitis C Ab (EIA) 04/08/17 05:35 WBC RBC Hgb Hct MCV MCH MCHC RDW Plt Count MPV Neutrophils % Lymphocytes % Monocytes % Eosinophils % Basophils % Sodium 144 Potassium 3.9 Chloride 111 H Carbon Dioxide 24 Anion Gap 9 BUN 6 L D Creatinine 1.1 H Creat Clearance w eGFR 49.39 POC Glucometer Random Glucose 78 Calcium 8.2 L Total Bilirubin 6.5 H Direct Bilirubin AST 67 H D ALT 116 H D Alkaline Phosphatase 173 H Creatine Kinase Creatine Kinase Index CK-MB (CK-2) Troponin I Total Protein 6.3 L Albumin 3.0 L Triglycerides 167 H Total LDL Cholesterol 82 HDL Cholesterol 21 L Lipase Urine Color Urine Appearance Urine pH Ur Specific [place] Urine Protein Urine Glucose (UA) Urine Ketones Urine Blood Urine Nitrite Urine Bilirubin Urine Urobilinogen Ur Leukocyte Esterase Urine RBC Urine WBC Ur Epithelial Cells Urine Bacteria Hepatitis A IgM Ab Hep Bs Antigen Hep B Core IgM Ab Hepatitis C Ab (EIA) Vital Signs - 24 hr 04/07/17 04/07/17 04/07/17 14:29 17:20 18:10 Temperature 98.4 F 99.2 F Pulse Rate 65 60 Respiratory 16 17 Rate Blood Pressure 141/75 140/61 O2 Sat by Pulse Oximetry (%) 04/07/17 04/07/17 04/08/17 21:00 23:20 02:00 Temperature 102.9 F H 100.1 F H 100.2 F H Pulse Rate 90 77 Respiratory 22 20 Rate Blood Pressure 142/70 132/67 O2 Sat by Pulse 100 Oximetry (%) 04/08/17 06:00 Temperature 98.4 F Pulse Rate 63 Respiratory 20 Rate Blood Pressure 156/64 O2 Sat by Pulse Oximetry (%) Problem List - Problems (1) Cholelithiasis and cholecystitis with obstruction Assessment/Plan: NPO Continue Abx CBC, CMP this am Surgical evaluation Code(s): K80.19 - CALCULUS OF GALLBLADDER W OTH CHOLECYSTITIS WITH OBSTRUCTION Qualifiers: Cholecystitis acuity: acute
[2017-04-08 08:46] LABS: ACTIVATED PTT 34.3 SECONDS (26.9-34.4)
[2017-04-08 09:06] LABS: CHOLESTEROL 137 mg/dL (50-200)
[2017-04-08] MEDS ORDERED: HYDROCORTISONE 20 MG TABLET PO SCH (10:00)
[2017-04-08] MEDS: HYDROCORTISONE 20 MG TABLET PO SCH (10:14)
--- NOTE | 2017-04-08 11:07 | PN ---
Physical Exam: SUBJECTIVE: Patient seen and examined. She doesn't have any complaints today. No ovcernight events. OBJECTIVE: Vital Signs Period Temp Pulse Resp BP Sys/Saleem Pulse Ox Last 24 Hr 98.4 F-102.9 F 60-90 16-22 132-156/61-75 100 GENERAL: The patient is awake, alert, and fully oriented, in no acute distress. HEAD: Normal with no signs of trauma. EYES: extraocular movements intact, sclera anicteric, conjunctiva clear ENT: oropharynx clear without exudates, moist mucous membranes. NECK: supple. LUNGS: clear to auscultation bilaterally, no wheezes, no crackles, no accessory muscle use. HEART: Regular rate and rhythm, S1, S2 without murmur, rub or gallop. ABDOMEN: Soft, nontender, nondistended, negative Herrera sign, normoactive bowel sounds, no guarding, no rebound, no hepatosplenomegaly EXTREMITIES: 1+ edema. NEUROLOGICAL: Normal speech, gait not observed, no facial asymmetry. PSYCH: Normal mood, normal affect. SKIN: Warm, dry, normal turgor, no rashes or lesions noted Laboratory Results - last 24 hr 04/07/17 04/07/17 04/07/17 06:10 11:56 18:56 WBC RBC Hgb Hct MCV MCH MCHC RDW Plt Count MPV Neutrophils % Lymphocytes % Monocytes % Eosinophils % Basophils % PT with INR INR PTT (Actin FS) Sodium Potassium Chloride Carbon Dioxide Anion Gap BUN Creatinine Creat Clearance w eGFR POC Glucometer 81 Random Glucose Hemoglobin A1c % Calcium Total Bilirubin AST ALT Alkaline Phosphatase Creatine Kinase 271 H Creatine Kinase Index 0.3 CK-MB (CK-2) < 1.000 Troponin I 0.04 Total Protein Albumin Triglycerides Cholesterol Total LDL Cholesterol HDL Cholesterol Hepatitis A IgM Ab Negative Hep Bs Antigen Negative Hep B Core IgM Ab Negative Hepatitis C Ab (EIA) <0.1 Blood Type Antibody Screen 04/08/17 04/08/17 04/08/17 05:35 05:35 08:10 WBC 9.3 RBC 4.30 Hgb 12.2 Hct 36.7 MCV 85.3 MCH 28.3 MCHC 33.1 RDW 15.5 Plt Count 182 MPV 9.3 Neutrophils % 78.2 Lymphocytes % 13.1 D Monocytes % 6.2 Eosinophils % 2.3 Basophils % 0.2 PT with INR 15.00 H INR 1.36 H PTT (Actin FS) 34.3 Sodium 144 Potassium 3.9 Chloride 111 H Carbon Dioxide 24 Anion Gap 9 BUN 6 L D Creatinine 1.1 H Creat Clearance w eGFR 49.39 POC Glucometer Random Glucose 78 Hemoglobin A1c % Calcium 8.2 L Total Bilirubin 6.5 H AST 67 H D ALT 116 H D Alkaline Phosphatase 173 H Creatine Kinase Creatine Kinase Index CK-MB (CK-2) Troponin I Total Protein 6.3 L Albumin 3.0 L Triglycerides 167 H Cholesterol 137 Total LDL Cholesterol 82 HDL Cholesterol 21 L Hepatitis A IgM Ab Hep Bs Antigen Hep B Core IgM Ab Hepatitis C Ab (EIA) Blood Type Antibody Screen 04/08/17 04/08/17 08:10 08:10 WBC RBC Hgb Hct MCV MCH MCHC RDW Plt Count MPV Neutrophils % Lymphocytes % Monocytes % Eosinophils % Basophils % PT with INR INR PTT (Actin FS) Sodium Potassium Chloride Carbon Dioxide Anion Gap BUN Creatinine Creat Clearance w eGFR POC Glucometer Random Glucose Hemoglobin A1c % 5.1 Calcium Total Bilirubin AST ALT Alkaline Phosphatase Creatine Kinase Creatine Kinase Index CK-MB (CK-2) Troponin I Total Protein Albumin Triglycerides Cholesterol Total LDL Cholesterol HDL Cholesterol Hepatitis A IgM Ab Hep Bs Antigen Hep B Core IgM Ab Hepatitis C Ab (EIA) Blood Type O POSITIVE Antibody Screen Negative Active Medications Generic Name Dose Route Start Last Admin Trade Name Freq PRN Reason Stop Dose Admin Heparin Sodium (Porcine) 5,000 unit 04/07/17 10:00 04/08/17 10:14 Heparin - SQ Not Given Q8H-IV TANG Hydrocortisone 5 mg 04/08/17 18:00 Cortef - PO DAILY@1800 TANG Hydrocortisone 20 mg 04/08/17 10:00 04/08/17 10:14 Cortef - PO 20 mg DAILY@0800 TANG Administration CEFTRIAXONE 1 G/50 ML PREMIX 50 mls @ 100 mls/hr 04/07/17 10:00 04/07/17 17:58 Ceftriaxone 1 Gm-D5w Bag IVPB 100 mls/hr DAILY TANG Administration Metronidazole 100 mls @ 100 mls/hr 04/07/17 10:00 04/08/17 10:14 Flagyl 500mg Premixed Ivpb - IVPB 100 mls/hr Q8H-IV TANG Administration Phenobarbital 30 mg 04/07/17 16:15 04/08/17 10:14 Phenobarbital - PO 30 mg Q8H TANG Administration ASSESSMENT/PLAN: 66yo F with HTN, DM, CKD, CAD, seizure disorder, hypothryroidism, panhypopitutitarism, 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 sepsis due to UTI or liver hepatobiliary source like cholecystitis/cholangitis or UTI continue on Ceftriaxone 1g and Flagyl 500mg Q8H cultures- pending WBC count trending down, today 9.3 cont fluids UA positive for infection U cultures and blood cultures show no growth Acute cholecystitis/cholangitis positive for gallstones and no biliary duct dilatation elevated Tbili and D bili, and Alkaline Phosph, LFTs still elevated today but slowly coming down GI consulted, will follow recommendations NPO HIDA scan pending elevated troponin likely related to demand ischemia 2/2 sepsis mormalized Hypernatremia on admission 147 -continue IVF [id number] on CKD continue IVF, Cr today is 1.3 avoid nephrotoxic substances hypothyroidism continue Synthroid AMS possibly due to sepsis reported by her cousin but the pt is oriented in the hospital h/o of arroyo hypopituitarism -continue Hydrocortisone 5 and 20 mg h/o seizure disorder no seizure activity in the hospital cont Phenobarbital h/o brain tumor restart bromocriptine FEN LR at 75 ml/hr/Na/NPO Ppx SCDs / Heparin SQ TID no GI ppx indicated at this time Disposition: continue med surg. Will f/u with surgery for possible cholecystectomy, continue NPO Problem List - Problems (1) Change in mental status Code(s): R41.82 - ALTERED MENTAL STATUS, UNSPECIFIED (2) Cholelithiases Code(s): K80.20 - CALCULUS OF GALLBLADDER W/O CHOLECYSTITIS W/O OBSTRUCTION (3) Cholelithiasis and cholecystitis with obstruction Code(s): K80.19 - CALCULUS OF GALLBLADDER W OTH CHOLECYSTITIS WITH OBSTRUCTION Qualifiers: Cholecystitis acuity: acute (4) Elevated LFTs Code(s): R79.89 - OTHER SPECIFIED ABNORMAL FINDINGS OF BLOOD CHEMISTRY (5) UTI (urinary tract infection) Code(s): N39.0 - URINARY TRACT INFECTION, SITE NOT SPECIFIED Visit type - Emergency Visit Emergency Visit: Yes ED Registration Date: 10/10/17 Care time: The patient presented to the Emergency Department on the above date and was hospitalized for further evaluation of their emergent condition. - New Patient This patient is new to me today: No - Critical Care Critical Care patient: No
[2017-04-08] MEDS: CEFTRIAXONE 1 G/50 ML PREMIX 50 ML IVPB SCH (11:17)
--- NOTE | 2017-04-08 12:23 | PN ---
Teaching Attending Note Name of Resident: Chichi Cole ATTENDING PHYSICIAN STATEMENT I saw and evaluated the patient. I reviewed the resident's note and discussed the case with the resident. I agree with the resident's findings and plan as documented. SUBJECTIVE: Patient is doing well except feels hungry. Denies having any abdominal pain today. OBJECTIVE: Vital Signs Temperature 99.3 F 04/08/17 10:50 Pulse Rate 62 04/08/17 10:50 Respiratory Rate 18 04/08/17 10:50 Blood Pressure 143/70 04/08/17 10:50 O2 Sat by Pulse Oximetry (%) 98 04/08/17 09:00 CBCD WBC 9.3 K/mm3 (4.0-10.0) 04/08/17 05:35 RBC 4.30 M/mm3 (3.60-5.2) 04/08/17 05:35 Hgb 12.2 GM/dL (10.7-15.3) 04/08/17 05:35 Hct 36.7 % (32.4-45.2) 04/08/17 05:35 MCV 85.3 fl (80-96) 04/08/17 05:35 MCHC 33.1 g/dl (32.0-36.0) 04/08/17 05:35 RDW 15.5 % (11.6-15.6) 04/08/17 05:35 Plt Count 182 K/MM3 (134-434) 04/08/17 05:35 MPV 9.3 fl (7.5-11.1) 04/08/17 05:35 CMP Sodium 144 mmol/L (136-145) 04/08/17 05:35 Potassium 3.9 mmol/L (3.5-5.1) 04/08/17 05:35 Chloride 111 mmol/L (98-107) H 04/08/17 05:35 Carbon Dioxide 24 mmol/L (21-32) 04/08/17 05:35 Anion Gap 9 (8-16) 04/08/17 05:35 BUN 6 mg/dL (7-18) L D 04/08/17 05:35 Creatinine 1.1 mg/dL (0.55-1.02) H 04/08/17 05:35 Creat Clearance w eGFR 49.39 (>60) 04/08/17 05:35 Random Glucose 78 mg/dL (74-106) 04/08/17 05:35 Calcium 8.2 mg/dL (8.5-10.1) L 04/08/17 05:35 Total Bilirubin 6.5 mg/dL (0.2-1.0) H 04/08/17 05:35 AST 67 U/L (15-37) H D 04/08/17 05:35 ALT 116 U/L (12-78) H D 04/08/17 05:35 Alkaline Phosphatase 173 U/L (45-117) H 04/08/17 05:35 Total Protein 6.3 g/dl (6.4-8.2) L 04/08/17 05:35 Albumin 3.0 g/dl (3.4-5.0) L 04/08/17 05:35 CARDIAC ENZYMES Creatine Kinase 271 IU/L (26-192) H 04/07/17 11:56 Troponin I 0.04 ng/ml (0.00-0.05) 04/07/17 11:56 Current Medications Generic Name Dose Route Start Last Admin Trade Name Freq PRN Reason Stop Dose Admin Heparin Sodium (Porcine) 5,000 unit 04/07/17 10:00 04/08/17 10:14 Heparin - SQ Not Given Q8H-IV TANG Hydrocortisone 5 mg 04/08/17 18:00 Cortef - PO DAILY@1800 TANG Hydrocortisone 20 mg 04/08/17 10:00 04/08/17 10:14 Cortef - PO 20 mg DAILY@0800 TANG Administration CEFTRIAXONE 1 G/50 ML PREMIX 50 mls @ 100 mls/hr 04/07/17 10:00 04/08/17 11:17 Ceftriaxone 1 Gm-D5w Bag IVPB 100 mls/hr DAILY TANG Administration Metronidazole 100 mls @ 100 mls/hr 04/07/17 10:00 04/08/17 10:14 Flagyl 500mg Premixed Ivpb - IVPB 100 mls/hr Q8H-IV TANG Administration Phenobarbital 30 mg 04/07/17 16:15 04/08/17 10:14 Phenobarbital - PO 30 mg Q8H TANG Administration Home Medications Medication Instructions Recorded Acetaminophen [Tylenol] 650 mg PO Q4H 10/13/12 Bromocriptine Mesylate [Parlodel -] 5 mg PO DAILY #0 tablet 10/16/12 Cortisone Acetate [Cortisone -] 25 mg PO DAILY #0 tablet 10/16/12 Levetiracetam [Keppra -] 500 mg PO BID #0 tablet 10/16/12 Metronidazole [Flagyl -] 250 mg PO Q6HPO #0 tablet 10/16/12 Atorvastatin Ca [Lipitor] 10 mg PO HS 04/07/17 Cholecalciferol (Vitamin D3) 1,000 iu PO DAILY 04/07/17 [Vitamin D3 -] Furosemide [Lasix -] 40 mg PO DAILY 04/07/17 Levothyroxine [Synthroid -] 175 mcg PO DAILY 04/07/17 Phenobarbital 40 mg PO DAILY 04/07/17 Phenobarbital - 30 mg PO TID 04/07/17 Potassium Chloride [K-Dur -] 10 meq PO DAILY 04/07/17 PE: per resident's note ASSESSMENT AND PLAN: 66 y/o lady withh/o Craniotomy due to benign brain tumor, seizure disorder, s/p PPM,hypopituitarism ,and other medical problems who presented with AMS, she was found to have acute UTI and transaminitis # Acute cholangitis, discussed with , Remi reports obtructive CBD/ cholecysytis , discussed with GI and GI middleware developer , if urgently needed ERCP to call the group tonight. endorsed to the nurse is the patient spikes any temp, or change of vital signs to notify the hospitalist loss prevention specialist, Also endorsed the loss prevention specialist Doctor for hospitalist group, she is aware. On IV antibitoic Ceftriaxone and flagyl . follow blood cx, discussed with ID , as per ID no change with the antibiotics for now. continue IVF unfortunately can't obtain MRCP due to PPM # AMS : due to sepsis . improved after IVF and Abx. neuro exam is not focal # UTI: on antibiotics continue on Rocephin and Flagyl , follow urine cx # h/o siezures: cont keppra , resume phenobarbital # hypothyroidism : cont. synthroid , need the doses to be confirmed. Discussed with her Cousin name Kathya Mustafa call ed her director transportation office# [phone], was not able to leave any message, will call again in am. cell # [phone]
--- NOTE | 2017-04-08 13:44 | CONSULT ---
- Consultation REQUESTING PROVIDER: Elizabet CONSULT REQUEST: We have been asked to surgically evaluate this patient for possible symptomatic gallbladder disease PCP:Carlos Mcneal HISTORY OF PRESENT ILLNESS:66/y/o A/A/F presented w/ AMS and ? urosepsis ?; she was found to have elevated LFT's and a w/u was instituted; she has no c/o today ; she wants to eat; she ? had n/v/and abdominal pain; she denies any other GI/ /TRANSITIONS RN CARE COORDINATOR c/o; she had fever on admission which has resolved. PMHx: hyperlipidemia; hypothyroid PSHx: craniotomy Home Medications Medication Instructions Recorded Acetaminophen [Tylenol] 650 mg PO Q4H 10/13/12 Bromocriptine Mesylate [Parlodel -] 5 mg PO DAILY #0 tablet 10/16/12 Cortisone Acetate [Cortisone -] 25 mg PO DAILY #0 tablet 10/16/12 Levetiracetam [Keppra -] 500 mg PO BID #0 tablet 10/16/12 Metronidazole [Flagyl -] 250 mg PO Q6HPO #0 tablet 10/16/12 Atorvastatin Ca [Lipitor] 10 mg PO HS 04/07/17 Cholecalciferol (Vitamin D3) 1,000 iu PO DAILY 04/07/17 [Vitamin D3 -] Furosemide [Lasix -] 40 mg PO DAILY 04/07/17 Levothyroxine [Synthroid -] 175 mcg PO DAILY 04/07/17 Phenobarbital 40 mg PO DAILY 04/07/17 Phenobarbital - 30 mg PO TID 04/07/17 Potassium Chloride [K-Dur -] 10 meq PO DAILY 04/07/17 Allergies Allergy/AdvReac Type Severity Reaction Status Date / Time No Known Allergies Allergy Verified 04/07/17 00:58 PHYSICAL EXAM: GENERAL: Awake, alert, and fully oriented, in no acute distress. HEAD: Normal with no signs of trauma. EYES: sclera icteric, conjunctiva clear. NECK: Normal ROM, supple without lymphadenopathy, JVD, or masses. ABDOMEN: Soft, nontender, not distended, normoactive bowel sounds, no guarding, no rebound, no masses. No organomegaly. No scars; no hernias. MUSCULOSKELETAL: Normal ROM at all joints. No bony deformities or tenderness. No CVA tenderness. UPPER EXTREMITIES: 2+ pulses, warm, well-perfused. No cyanosis. Cap refill <2 seconds. No peripheral edema. LOWER EXTREMITIES: 2+ pulses, warm, well-perfused. No calf tenderness. No peripheral edema. NEUROLOGICAL: Normal speech, gait not observed. PSYCH: Cooperative. Good eye contact. Appropriate mood and affect. SKIN: Warm, dry, normal turgor, no rashes or lesions noted. Vital Signs Temperature 99.3 F 04/08/17 10:50 Pulse Rate 62 04/08/17 10:50 Respiratory Rate 18 04/08/17 10:50 Blood Pressure 143/70 04/08/17 10:50 O2 Sat by Pulse Oximetry (%) 98 04/08/17 09:00 Lab Results WBC 9.3 K/mm3 (4.0-10.0) 04/08/17 05:35 RBC 4.30 M/mm3 (3.60-5.2) 04/08/17 05:35 Hgb 12.2 GM/dL (10.7-15.3) 04/08/17 05:35 Hct 36.7 % (32.4-45.2) 04/08/17 05:35 MCV 85.3 fl (80-96) 04/08/17 05:35 MCHC 33.1 g/dl (32.0-36.0) 04/08/17 05:35 RDW 15.5 % (11.6-15.6) 04/08/17 05:35 Plt Count 182 K/MM3 (134-434) 04/08/17 05:35 Sodium 144 mmol/L (136-145) 04/08/17 05:35 Potassium 3.9 mmol/L (3.5-5.1) 04/08/17 05:35 Chloride 111 mmol/L (98-107) H 04/08/17 05:35 Carbon Dioxide 24 mmol/L (21-32) 04/08/17 05:35 Anion Gap 9 (8-16) 04/08/17 05:35 BUN 6 mg/dL (7-18) L D 04/08/17 05:35 Creatinine 1.1 mg/dL (0.55-1.02) H 04/08/17 05:35 Random Glucose 78 mg/dL (74-106) 04/08/17 05:35 Calcium 8.2 mg/dL (8.5-10.1) L 04/08/17 05:35 Blood Type O POSITIVE 04/08/17 08:10 Antibody Screen Negative 04/08/17 08:10 INR 1.36 (0.82-1.09) H 04/08/17 08:10 US/Labs reviewd;HIDA scan done today results pending. IMP: cholelithiasis; r/o choledocholithiasis (unlikely given non dilated CBD) PLAN: F/U HIDA scan results; continue to trend bili/LFT's; may need ERCP pending results of HIDA scan to r/o choledocholithiasis; of note LFT's and bili have remained essentially unchanged since admission; would not consider lap kathy until possible CBD issues are resolved. Jermain Brooke MD FACS Visit type - Case Type Case Type: ED Admission - Emergency Emergency Visit: Yes ED Registration Date: 04/07/17 Care time: The patient presented to the Emergency Department on the above date and was hospitalized for further evaluation of their emergent condition. - New patient This patient is new to me today: Yes Date on this admission: 04/08/17 - Critical Care Critical Care patient: No
[2017-04-08] MEDS: HYDROCORTISONE 10 MG TABLET PO SCH (17:36)
[2017-04-08] MEDS ORDERED: PT OWN MED DRAWER 7, Y5N ONE (17:36)
[2017-04-08] MEDS ORDERED: DEXTROSE 5%-0.45% SALINE 1,000 ML IV SCH (17:45)
--- NOTE | 2017-04-08 17:56 | PN ---
Progress Note (short form) - Note Progress Note: HIDA scan and surgical eval noted. Dr. Sheikh's group was contacted. They cannot accommodate this patient and recommend transfer out. Problem List - Problems (1) Cholelithiasis and cholecystitis with obstruction Code(s): K80.19 - CALCULUS OF GALLBLADDER W OTH CHOLECYSTITIS WITH OBSTRUCTION Qualifiers: Cholecystitis acuity: acute
[2017-04-08] MEDS ORDERED: HYDROCORTISONE 10 MG TABLET PO SCH (18:00)
[2017-04-08] MEDS ORDERED: PHYTONADIONE 10 MG/1 ML AMP SQ ONE (18:21)
[2017-04-09] MEDS: PHENobarbital 30 MG TABLET PO SCH ×3 (01:27→17:21)
[2017-04-09] MEDS: METRONIDAZOLE 500 MG PREMIXED 100 ML IVPB SCH ×3 (01:27→17:24)
[2017-04-09] MEDS ORDERED: PT OWN MED DRAWER 7, Y5N ONE ×2 (08:34→17:31)
[2017-04-09] MEDS: HYDROCORTISONE 20 MG TABLET PO SCH (08:36)
--- NOTE | 2017-04-09 09:20 | PN ---
Progress Note, Physician Chief Complaint: ID Currently asymptomatic - Current Medication List Current Medications: Active Medications Heparin Sodium (Porcine) (Heparin -) 5,000 unit SQ Q8H-IV [facility] Last Admin: 04/08/17 17:34 Dose: Not Given Hydrocortisone (Cortef -) 5 mg PO DAILY@1800 [facility] Last Admin: 04/08/17 17:36 Dose: 5 mg Hydrocortisone (Cortef -) 20 mg PO DAILY@0800 [facility] Last Admin: 04/09/17 08:36 Dose: 20 mg CEFTRIAXONE 1 G/50 ML PREMIX (Ceftriaxone 1 Gm-D5w Bag) 50 mls @ 100 mls/hr IVPB DAILY [facility] Last Admin: 04/08/17 11:17 Dose: 100 mls/hr Metronidazole (Flagyl 500mg Premixed Ivpb -) 100 mls @ 100 mls/hr IVPB Q8H-IV [facility] Last Admin: 04/09/17 01:27 Dose: 100 mls/hr Phenobarbital (Phenobarbital -) 30 mg PO Q8H [facility] Last Admin: 04/09/17 08:36 Dose: 30 mg - Objective Vital Signs: Vital Signs Temperature 98.6 F 04/09/17 06:00 Pulse Rate 109 H 04/09/17 06:00 Respiratory Rate 20 04/09/17 06:00 Blood Pressure 132/76 04/09/17 06:00 O2 Sat by Pulse Oximetry (%) 98 04/08/17 21:00 Constitutional: Yes: Obese Cardiovascular: Yes: S1, S2, Other (Pacemaker) Respiratory: Yes: WNL, Regular, CTA Bilaterally Gastrointestinal: Yes: WNL, Soft. No: Tenderness, Tenderness, Rebound Edema: No Labs: CBC, BMP 04/08/17 05:35 04/08/17 05:35 INR, PTT INR 1.36 (0.82-1.09) H 04/08/17 08:10 Problem List - Problems (1) Cholelithiases Code(s): K80.20 - CALCULUS OF GALLBLADDER W/O CHOLECYSTITIS W/O OBSTRUCTION (2) Elevated LFTs Code(s): R79.89 - OTHER SPECIFIED ABNORMAL FINDINGS OF BLOOD CHEMISTRY (3) UTI (urinary tract infection) Code(s): N39.0 - URINARY TRACT INFECTION, SITE NOT SPECIFIED Assessment/Plan Microbiology 04/07/17 02:30 Urine - Urine Clean Catch Urine Culture - Final NO GROWTH OBTAINED 04/07/17 05:00 Blood - Peripheral Venous Blood Culture - Preliminary NO GROWTH OBTAINED AFTER 48 HOURS, INCUBATION TO CONTINUE FOR 3 DAYS. 04/07/17 05:00 Blood - Peripheral Venous Blood Culture - Preliminary NO GROWTH OBTAINED AFTER 48 HOURS, INCUBATION TO CONTINUE FOR 3 DAYS. Laboratory Tests 04/07/17 04/07/17 04/08/17 02:30 06:10 05:35 WBC 9.3 Hgb 12.2 Hct 36.7 Plt Count 182 BUN Creatinine Direct Bilirubin 5.7 H AST ALT Alkaline Phosphatase Ur Leukocyte Esterase 1+ H Urine RBC 1 Urine WBC 72 04/08/17 05:35 WBC Hgb Hct Plt Count BUN 6 L D Creatinine 1.1 H Direct Bilirubin AST 67 H D ALT 116 H D Alkaline Phosphatase 173 H Ur Leukocyte Esterase Urine RBC Urine WBC Assessment Acute cholecystitis Biliary obstruction UTI Plan No issue with current antibiotic coverage Ceftriaxone and metronidazole ERCP Fabio HARP
--- NOTE | 2017-04-09 09:38 | PN ---
Progress Note, Physician Chief Complaint: No events. Afebrile. Comfortable. - Current Medication List Current Medications: Active Medications Heparin Sodium (Porcine) (Heparin -) 5,000 unit SQ Q8H-IV [facility] Last Admin: 04/08/17 17:34 Dose: Not Given Hydrocortisone (Cortef -) 5 mg PO DAILY@1800 [facility] Last Admin: 04/08/17 17:36 Dose: 5 mg Hydrocortisone (Cortef -) 20 mg PO DAILY@0800 [facility] Last Admin: 04/09/17 08:36 Dose: 20 mg CEFTRIAXONE 1 G/50 ML PREMIX (Ceftriaxone 1 Gm-D5w Bag) 50 mls @ 100 mls/hr IVPB DAILY [facility] Last Admin: 04/08/17 11:17 Dose: 100 mls/hr Metronidazole (Flagyl 500mg Premixed Ivpb -) 100 mls @ 100 mls/hr IVPB Q8H-IV [facility] Last Admin: 04/09/17 01:27 Dose: 100 mls/hr Phenobarbital (Phenobarbital -) 30 mg PO Q8H [facility] Last Admin: 04/09/17 08:36 Dose: 30 mg - Objective Vital Signs: Vital Signs Temperature 98.6 F 04/09/17 06:00 Pulse Rate 109 H 04/09/17 06:00 Respiratory Rate 20 04/09/17 06:00 Blood Pressure 132/76 04/09/17 06:00 O2 Sat by Pulse Oximetry (%) 98 04/08/17 21:00 Constitutional: Yes: No Distress, Calm Eyes: Yes: Conjunctiva Clear HENT: Yes: Atraumatic Neck: Yes: Supple Cardiovascular: Yes: Regular Rate and Rhythm Respiratory: Yes: Regular, CTA Bilaterally Gastrointestinal: Yes: Normal Bowel Sounds, Soft, Abdomen, Obese. No: Ascites, Distention, Tenderness, Tenderness, Epigastrium, Tenderness, Rebound, Vomiting Integumentary: No: Jaundice Neurological: Yes: Alert, Oriented Labs: CBC, BMP 04/08/17 05:35 04/08/17 05:35 INR, PTT INR 1.36 (0.82-1.09) H 04/08/17 08:10 Laboratory Results - last 24 hr 04/07/17 04/07/17 04/08/17 06:10 18:40 05:35 Smooth Musc &DOOR TO DOOR SALESPERSON Intrp 10 Hepatitis A Ab Total Positive Hep Bs Antigen Negative Hep Bs Antibody Non reactive Hep B Core Total Ab Negative Hepatitis C Antibody 0.1 CMP Sodium 144 mmol/L (136-145) 04/08/17 05:35 Potassium 3.9 mmol/L (3.5-5.1) 04/08/17 05:35 Chloride 111 mmol/L (98-107) H 04/08/17 05:35 Carbon Dioxide 24 mmol/L (21-32) 04/08/17 05:35 Anion Gap 9 (8-16) 04/08/17 05:35 BUN 6 mg/dL (7-18) L D 04/08/17 05:35 Creatinine 1.1 mg/dL (0.55-1.02) H 04/08/17 05:35 Creat Clearance w eGFR 49.39 (>60) 04/08/17 05:35 POC Glucometer 81 UNITS (()) 04/07/17 18:56 Random Glucose 78 mg/dL (74-106) 04/08/17 05:35 Hemoglobin A1c % 5.1 % (4.8-6.0) 04/08/17 08:10 Lactic Acid 1.6 mmol/L (0.4-2.0) 04/07/17 02:10 Calcium 8.2 mg/dL (8.5-10.1) L 04/08/17 05:35 Phosphorus 3.6 mg/dL (2.5-4.9) 04/07/17 06:10 Magnesium 2.4 mg/dL (1.8-2.4) 04/07/17 06:10 Total Bilirubin 6.5 mg/dL (0.2-1.0) H 04/08/17 05:35 Direct Bilirubin 5.7 mg/dL (0.0-0.2) H 04/07/17 06:10 AST 67 U/L (15-37) H D 04/08/17 05:35 ALT 116 U/L (12-78) H D 04/08/17 05:35 Alkaline Phosphatase 173 U/L (45-117) H 04/08/17 05:35 Ammonia 26.98 umol/L (11-32) 04/07/17 06:10 Creatine Kinase 271 IU/L (26-192) H 04/07/17 11:56 Creatine Kinase Index 0.3 % (0.0-5.0) 04/07/17 11:56 CK-MB (CK-2) < 1.000 ng/mL (0.5-3.6) 04/07/17 11:56 Troponin I 0.04 ng/ml (0.00-0.05) 04/07/17 11:56 Total Protein 6.3 g/dl (6.4-8.2) L 04/08/17 05:35 Albumin 3.0 g/dl (3.4-5.0) L 04/08/17 05:35 Triglycerides 167 mg/dL (35-160) H 04/08/17 05:35 Cholesterol 137 mg/dL (50-200) 04/08/17 05:35 Total LDL Cholesterol 82 mg/dL (5-100) 04/08/17 05:35 HDL Cholesterol 21 mg/dL (40-60) L 04/08/17 05:35 Lipase 78 U/L (73-393) 04/07/17 06:10 Vital Signs - 24 hr 04/08/17 04/08/17 04/08/17 10:50 15:11 15:20 Temperature 99.3 F 98.8 F 97.9 F Pulse Rate 62 59 L 84 Respiratory 18 18 16 Rate Blood Pressure 143/70 142/90 130/72 O2 Sat by Pulse Oximetry (%) 04/08/17 04/08/17 04/08/17 18:00 21:00 22:00 Temperature 98.1 F 98.2 F Pulse Rate 60 63 Respiratory 18 18 Rate Blood Pressure 128/67 136/79 O2 Sat by Pulse 98 Oximetry (%) 04/09/17 06:00 Temperature 98.6 F Pulse Rate 109 H Respiratory 20 Rate Blood Pressure 132/76 O2 Sat by Pulse Oximetry (%) Problem List - Problems (1) Cholelithiasis and cholecystitis with obstruction Assessment/Plan: NPO Continue Abx CBC, CMP this am Surgical evaluation noted Billiary consult for ERCP requested, if not available will transfer pt to [facility] for ERCP Continue close observation Code(s): K80.19 - CALCULUS OF GALLBLADDER W OTH CHOLECYSTITIS WITH OBSTRUCTION Qualifiers: Cholecystitis acuity: acute (2) Cholangitis due to bile duct calculus with obstruction Code(s): K80.31 - CALCULUS OF BILE DUCT W CHOLANGITIS, UNSP, WITH OBSTRUCTION
[2017-04-09 10:09] LABS: BASOPHIL 0.5 % (0-2.0); EOSINOPHIL 3.2 % (0-4.5); MCH 28.1 pg (25.7-33.7); MCHC 32.9 g/dl (32.0-36.0); MEAN CELL VOLUME 85.2 fl (80-96); MEAN PLT VOLUME 8.7 fl (7.5-11.1); NEUTROPHILS 74.6 % (42.8-82.8); PLATELET COUNT 205 K/MM3 (134-434); RDW 15.2 % (11.6-15.6); WHITE BLOOD COUNT 6.8 K/mm3 (4.0-10.0)
[2017-04-09 10:15] LABS: ALK PHOS 182 U/L (45-117); ANION GAP 8 (8-16); BILIRUBIN,TOTAL 5.9 mg/dL (0.2-1.0); CALCIUM 8.5 mg/dL (8.5-10.1); CO2 27 mmol/L (21-32); CREATININE 0.9 mg/dL (0.55-1.02); GLUCOSE,RANDOM 86 mg/dL (74-106); SGOT/AST 44 U/L (15-37); SGPT/ALT 88 U/L (12-78); TOT PROT 6.7 g/dl (6.4-8.2)
[2017-04-09] MEDS: CEFTRIAXONE 1 G/50 ML PREMIX 50 ML IVPB SCH (10:39)
--- NOTE | 2017-04-09 10:47 | CONSULT ---
Consult - text type - Consultation Consultation Note: NPO after midnight pending ERCP tomorrow. PT/INR ordered
--- NOTE | 2017-04-09 11:14 | PN ---
Progress Note (short form) - Note Progress Note: Attending Surgeon No c/o VSS AF abdomen-benign HIDA results reviewed; bili remains elevated and LFT's IMP: cholelithiasis; CBD obstruction w/o dilated ducts PLAN: ERCP; further surgical plan pending results/findings at ERCP. Jermain Brooke MD FACS
[2017-04-09 12:35] LABS: PHOSPHOROUS 3.1 mg/dL (2.5-4.9)
[2017-04-09] MEDS ORDERED: DEXTROSE 5%-0.45% SALINE 1,000 ML IV SCH (15:30)
--- NOTE | 2017-04-09 16:35 | PN ---
Physical Exam: SUBJECTIVE: Patient seen and examined. She doesn't have any complaints today. No overnight events. OBJECTIVE: Vital Signs Period Temp Pulse Resp BP Sys/Saleem Pulse Ox Last 24 Hr 98 F-98.6 F 60-109 18-20 128-136/67-79 98-98 GENERAL: The patient is awake, alert, and fully oriented, in no acute distress. HEAD: Normal with no signs of trauma. EYES: extraocular movements intact, sclera anicteric, conjunctiva clear ENT: oropharynx clear without exudates, moist mucous membranes. NECK: supple. LUNGS: clear to auscultation bilaterally, no wheezes, no crackles, no accessory muscle use. HEART: Regular rate and rhythm, S1, S2 without murmur, rub or gallop. ABDOMEN: Obese, soft, nontender, nondistended, negative Herrera sign, normoactive bowel sounds, no guarding, no rebound, no hepatosplenomegaly EXTREMITIES: 1+ edema. NEUROLOGICAL: Normal speech, gait nl, no facial asymmetry. PSYCH: Normal mood, normal affect. 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 10 Hepatitis A Ab Total Positive Hep Bs Antigen Negative Hep Bs Antibody Non reactive Hep B Core Total Ab Negative Hepatitis C Antibody 0.1 04/09/17 04/09/17 04/09/17 09:25 09:25 09:25 WBC 6.8 RBC 4.32 Hgb 12.1 Hct 36.8 MCV 85.2 MCH 28.1 MCHC 32.9 RDW 15.2 Plt Count 205 MPV 8.7 Neutrophils % 74.6 Lymphocytes % 14.8 Monocytes % 6.9 Eosinophils % 3.2 Basophils % 0.5 Sodium 146 H Potassium 3.7 Chloride 111 H Carbon Dioxide 27 Anion Gap 8 BUN 5 L Creatinine 0.9 Creat Clearance w eGFR > 60 Random Glucose 86 Calcium 8.5 Phosphorus 3.1 Cancelled Total Bilirubin 5.9 H AST 44 H D ALT 88 H D Alkaline Phosphatase 182 H Total Protein 6.7 Albumin 3.0 L 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 Intrp Hepatitis A Ab Total Hep Bs Antigen Hep Bs Antibody Hep B Core Total Ab Hepatitis C Antibody Active Medications Generic Name Dose Route Start Last Admin Trade Name Freq PRN Reason Stop Dose Admin Heparin Sodium (Porcine) 5,000 unit 04/07/17 10:00 04/08/17 17:34 Heparin - SQ Not Given Q8H-IV TANG Hydrocortisone 5 mg 04/08/17 18:00 04/08/17 17:36 Cortef - PO 5 mg DAILY@1800 TANG Administration Hydrocortisone 20 mg 04/08/17 10:00 04/09/17 08:36 Cortef - PO 20 mg DAILY@0800 TANG Administration CEFTRIAXONE 1 G/50 ML PREMIX 50 mls @ 100 mls/hr 04/07/17 10:00 04/09/17 10:39 Ceftriaxone 1 Gm-D5w Bag IVPB 100 mls/hr DAILY TANG Administration Metronidazole 100 mls @ 100 mls/hr 04/07/17 10:00 04/09/17 10:38 Flagyl 500mg Premixed Ivpb - IVPB 100 mls/hr Q8H-IV TANG Administration Dextrose/Sodium Chloride 1,000 mls @ 75 mls/hr 04/09/17 15:30 D5-1/2ns - IV ASDIR TANG Phenobarbital 30 mg 04/07/17 16:15 04/09/17 08:36 Phenobarbital - PO 30 mg Q8H TANG Administration ASSESSMENT/PLAN: 66yo F with HTN, DM, CKD, CAD, seizure disorder, hypothryroidism, panhypopitutitarism, 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 sepsis due to UTI or hepatobiliary source like cholangitis continue on Ceftriaxone 1g and Flagyl 500mg Q8H today is day 3 UA positive but cultures came back negative elevated liver enzymes at admission that are trending down no fever in 24 hrs WBC count trending down, today 6.8 cont fluids D5 1/2 NS Acute cholecystitis/cholangitis US: positive for gallstones and no biliary duct dilatation, followed by HIDA that showed obstructive pattern we consulted GI, scheduled for ERCP tomorrow elevated Tbili and D bili, and Alkaline Phosph, LFTs trending down today ALT 88, AST 44 GI consulted, will follow recommendations NPO after midnight hepatic panel nl elevated troponin likely related to demand ischemia 2/2 sepsis mormalized Hypernatremia on admission 147 -continue IVF [id number] on CKD continue IVF, Cr today is 0.9 avoid nephrotoxic substances hypothyroidism continue Synthroid AMS possibly due to sepsis reported by her cousin but the pt is oriented in the hospital h/o of arroyo hypopituitarism -continue Hydrocortisone 5 and 20 mg h/o seizure disorder no seizure activity in the hospital cont Phenobarbital h/o brain tumor restart bromocriptine FEN LR at 75 ml/hr/Na/NPO Ppx SCDs / Heparin SQ TID no GI ppx indicated at this time Disposition: continue med surg. ERCP tomorrow. Problem List - Problems (1) Change in mental status Code(s): R41.82 - ALTERED MENTAL STATUS, UNSPECIFIED (2) Cholelithiases Code(s): K80.20 - CALCULUS OF GALLBLADDER W/O CHOLECYSTITIS W/O OBSTRUCTION (3) Cholelithiasis and cholecystitis with obstruction Code(s): K80.19 - CALCULUS OF GALLBLADDER W OTH CHOLECYSTITIS WITH OBSTRUCTION Qualifiers: Cholecystitis acuity: acute (4) Elevated LFTs Code(s): R79.89 - OTHER SPECIFIED ABNORMAL FINDINGS OF BLOOD CHEMISTRY (5) UTI (urinary tract infection) Code(s): N39.0 - URINARY TRACT INFECTION, SITE NOT SPECIFIED Visit type - Emergency Visit Emergency Visit: Yes ED Registration Date: 04/07/17 Care time: The patient presented to the Emergency Department on the above date and was hospitalized for further evaluation of their emergent condition. - New Patient This patient is new to me today: No - Critical Care Critical Care patient: No
[2017-04-09] MEDS: HYDROCORTISONE 10 MG TABLET PO SCH (17:32)
--- NOTE | 2017-04-09 18:22 | CON.GI ---
Consult Consult Specialty:: GI: Dr. Madrigal for Dr. Reyes for ERCP Referred by:: Dr. Jhonny Crabtree Reason for Consultation:: Abnormal liver chemistries - History of Present Illness Chief Complaint: I was urinating on myself History of Present Illness: 66F admitted for evaluation of per the ER chart increased somnolence and altered mental status as well as urinary incontinence. Was being treated for UTI. Noted to have abnormal liver chemistries consisting of elevated ALP / direct hyperbilirubinemia and mild transaminitis. Seen by Dr. Crabtree. Burton patient had a + carmona's sign at the time of his exam. Abdominal US revealed gallstones without dilated biliary tract. HIDA scan revealed possible bile duct obstruction as well as cystic duct obstruction. PPM precluded MRCP evaluation. Called to evaluate for possible ERCP. Ms. Guerrero denies any abdominal pain currently. She says that she recalls vomiting once this past thursday. She denies any recent change to her medication regimen or known history of liver disease. She denies alcohol use. She has never had an upper endoscopy or colonoscopy. there is no family history of colorectal cancer or other GI malignancy. 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 surgically induced) Additional Medical History: HP/Chart reviewed. See HP - Past Surgical History Past Surgical History: Yes: Craniotomy (for ? resection of pituitary tumor) Additional Surgical History: PPM placement - Alcohol/Substance Use Hx Alcohol Use: No - Smoking History Smoking history: Never smoked Have you smoked in the past 12 months: No Aproximately how many cigarettes per day: 0 - Social History Usual Living Arrangement: Alone ADL: Independent Occupation: retired tree and shrub worker Place of : [facility] History of Recent Travel: No Home Medications - Allergies Allergies/Adverse Reactions: Allergies Allergy/AdvReac Type Severity Reaction Status Date / Time No Known Allergies Allergy Verified 04/07/17 00:58 - Home Medications Home Medications: Ambulatory Orders Acetaminophen [Tylenol] 650 mg PO Q4H 10/13/12 Bromocriptine Mesylate [Parlodel -] 5 mg PO DAILY #0 tablet 10/16/12 Cortisone Acetate [Cortisone -] 25 mg PO DAILY #0 tablet 10/16/12 Levetiracetam [Keppra -] 500 mg PO BID #0 tablet 10/16/12 Metronidazole [Flagyl -] 250 mg PO Q6HPO #0 tablet 10/16/12 Atorvastatin Ca [Lipitor] 10 mg PO HS 04/07/17 Cholecalciferol (Vitamin D3) [Vitamin D3 -] 1,000 iu PO DAILY 04/07/17 Furosemide [Lasix -] 40 mg PO DAILY 04/07/17 Levothyroxine [Synthroid -] 175 mcg PO DAILY 04/07/17 Phenobarbital 40 mg PO DAILY 04/07/17 Phenobarbital - 30 mg PO TID 04/07/17 Potassium Chloride [K-Dur -] 10 meq PO DAILY 04/07/17 Family Disease History - Family Disease History Family Disease History: Other: Father (Alive: healthy), Mother (: 70: BCA) Other Family History: No siblings. No children. No family history wen colorectal cancer or other GI malignancy Review of Systems - Review of Systems Constitutional: denies: Chills Cardiovascular: denies: Chest Pain Respiratory: denies: SOB Gastrointestinal: reports: Vomiting. denies: Abdominal Pain, Bloating, Constipation, Diarrhea, Dysphagia, Indigestion, Melena, Nausea, Rectal Bleeding , Vomiting Blood Genitourinary: reports: Frequency Physical Exam-GI Vital Signs: Vital Signs Temperature 98.5 F 04/09/17 13:52 Pulse Rate 63 04/09/17 13:52 Respiratory Rate 18 04/09/17 13:52 Blood Pressure 131/67 04/09/17 13:52 O2 Sat by Pulse Oximetry (%) 98 04/09/17 09:00 Constitutional: Yes: Calm Eyes: Yes: Sclera Icterus (mild) Cardiovascular: Yes: Regular Rate and Rhythm. No: Murmur Respiratory: Yes: CTA Bilaterally Gastrointestinal Inspection: No: Distention, Scars ...Auscultate: Yes: Normoactive Bowel Sounds ...Palpate: No: Hepatomegaly, Splenomegaly, Tenderness ...Percussion: No: Tympanitic Edema: No Neurological: Yes: Alert, Oriented Labs: CBC, BMP 04/09/17 09:25 04/09/17 09:25 INR, PTT INR 1.36 (0.82-1.09) H 04/08/17 08:10 Hepatic Panel Total Bilirubin 5.9 mg/dL (0.2-1.0) H 04/09/17 09:25 Direct Bilirubin 5.7 mg/dL (0.0-0.2) H 04/07/17 06:10 AST 44 U/L (15-37) H D 04/09/17 09:25 ALT 88 U/L (12-78) H D 04/09/17 09:25 Alkaline Phosphatase 182 U/L (45-117) H 04/09/17 09:25 Albumin 3.0 g/dl (3.4-5.0) L 04/09/17 09:25 Imaging - Results Ultrasound: Report Reviewed Other: Other (HIDA: report reviewed) Problem List - Problems (1) Elevated LFTs Assessment/Plan: Currently no RUQ pain however Ms. Guerrero has been on ABx. For further evaluation of abnormal liver chemistries and findings on HIDA, I discussed ERCP with Ms. Guerrero in detail. i explained that the procedure would be performed to exclude an obstructive process such as stone within the bile duct that could lead to a potentially life threatening infection called cholangitis as well as alternate pathology. We discussed potential risks of the procedure like but not limited to bleeding, perforation requiring surgery to repair, infection, sedation medication effects, pancreatitis (5-10% of cases) all of which could be potentially life threatening. After discussion, she stated that she wanted to think about this option. I asked that she think about things overnight and that Dr. Reyes would be available to discuss things with her further tomorrow In the interim: Continue IV abx NPO after midnight except meds w/ small sips water Monitor CBC / CMP PT/INR has been ordered Surgery following Code(s): R79.89 - OTHER SPECIFIED ABNORMAL FINDINGS OF BLOOD CHEMISTRY
--- NOTE | 2017-04-09 19:43 | PN ---
Teaching Attending Note Name of Resident: Chichi Cole ATTENDING PHYSICIAN STATEMENT I saw and evaluated the patient. I reviewed the resident's note and discussed the case with the resident. I agree with the resident's findings and plan as documented. SUBJECTIVE: Patient is comfortable with no acute distress. No fever or chills overnight OBJECTIVE: Vital Signs Temperature 98.1 F 04/09/17 16:20 Pulse Rate 60 04/09/17 16:20 Respiratory Rate 20 04/09/17 16:20 Blood Pressure 135/56 04/09/17 16:20 O2 Sat by Pulse Oximetry (%) 98 04/09/17 09:00 CBCD WBC 6.8 K/mm3 (4.0-10.0) 04/09/17 09:25 RBC 4.32 M/mm3 (3.60-5.2) 04/09/17 09:25 Hgb 12.1 GM/dL (10.7-15.3) 04/09/17 09:25 Hct 36.8 % (32.4-45.2) 04/09/17 09:25 MCV 85.2 fl (80-96) 04/09/17 09:25 MCHC 32.9 g/dl (32.0-36.0) 04/09/17 09:25 RDW 15.2 % (11.6-15.6) 04/09/17 09:25 Plt Count 205 K/MM3 (134-434) 04/09/17 09:25 MPV 8.7 fl (7.5-11.1) 04/09/17 09:25 CMP Sodium 146 mmol/L (136-145) H 04/09/17 09:25 Potassium 3.7 mmol/L (3.5-5.1) 04/09/17 09:25 Chloride 111 mmol/L (98-107) H 04/09/17 09:25 Carbon Dioxide 27 mmol/L (21-32) 04/09/17 09:25 Anion Gap 8 (8-16) 04/09/17 09:25 BUN 5 mg/dL (7-18) L 04/09/17 09:25 Creatinine 0.9 mg/dL (0.55-1.02) 04/09/17 09:25 Creat Clearance w eGFR > 60 (>60) 04/09/17 09:25 Random Glucose 86 mg/dL (74-106) 04/09/17 09:25 Calcium 8.5 mg/dL (8.5-10.1) 04/09/17 09:25 Total Bilirubin 5.9 mg/dL (0.2-1.0) H 04/09/17 09:25 AST 44 U/L (15-37) H D 04/09/17 09:25 ALT 88 U/L (12-78) H D 04/09/17 09:25 Alkaline Phosphatase 182 U/L (45-117) H 04/09/17 09:25 Total Protein 6.7 g/dl (6.4-8.2) 04/09/17 09:25 Albumin 3.0 g/dl (3.4-5.0) L 04/09/17 09:25 CARDIAC ENZYMES Creatine Kinase 271 IU/L (26-192) H 04/07/17 11:56 Troponin I 0.04 ng/ml (0.00-0.05) 04/07/17 11:56 Current Medications Generic Name Dose Route Start Last Admin Trade Name Freq PRN Reason Stop Dose Admin Heparin Sodium (Porcine) 5,000 unit 04/07/17 10:00 04/08/17 17:34 Heparin - SQ Not Given Q8H-IV TANG Hydrocortisone 5 mg 04/08/17 18:00 04/09/17 17:32 Cortef - PO 5 mg DAILY@1800 TANG Administration Hydrocortisone 20 mg 04/08/17 10:00 04/09/17 08:36 Cortef - PO 20 mg DAILY@0800 TANG Administration CEFTRIAXONE 1 G/50 ML PREMIX 50 mls @ 100 mls/hr 04/07/17 10:00 04/09/17 10:39 Ceftriaxone 1 Gm-D5w Bag IVPB 100 mls/hr DAILY TANG Administration Metronidazole 100 mls @ 100 mls/hr 04/07/17 10:00 04/09/17 17:24 Flagyl 500mg Premixed Ivpb - IVPB 100 mls/hr Q8H-IV TANG Administration Dextrose/Sodium Chloride 1,000 mls @ 75 mls/hr 04/09/17 15:30 04/09/17 17:24 D5-1/2ns - IV 75 mls/hr ASDIR TANG Administration Phenobarbital 30 mg 04/07/17 16:15 04/09/17 17:21 Phenobarbital - PO 30 mg Q8H TANG Administration Home Medications Medication Instructions Recorded Acetaminophen [Tylenol] 650 mg PO Q4H 10/13/12 Bromocriptine Mesylate [Parlodel -] 5 mg PO DAILY #0 tablet 10/16/12 Cortisone Acetate [Cortisone -] 25 mg PO DAILY #0 tablet 10/16/12 Levetiracetam [Keppra -] 500 mg PO BID #0 tablet 10/16/12 Metronidazole [Flagyl -] 250 mg PO Q6HPO #0 tablet 10/16/12 Atorvastatin Ca [Lipitor] 10 mg PO HS 04/07/17 Cholecalciferol (Vitamin D3) 1,000 iu PO DAILY 04/07/17 [Vitamin D3 -] Furosemide [Lasix -] 40 mg PO DAILY 04/07/17 Levothyroxine [Synthroid -] 175 mcg PO DAILY 04/07/17 Phenobarbital 40 mg PO DAILY 04/07/17 Phenobarbital - 30 mg PO TID 04/07/17 Potassium Chloride [K-Dur -] 10 meq PO DAILY 04/07/17 PE: per resident's note ASSESSMENT AND PLAN: 66 y/o lady withh/o Craniotomy due to benign brain tumor, seizure disorder, s/p PPM,hypopituitarism ,and other medical problems who presented with AMS, she was found to have acute UTI and transaminitis # Acute cholangitis, discussed with Remi Gross reports obtructive CBD/ cholecysytis , discussed with GI and GI personnel placement specialist . Patient will be going for ERCP in am. Continue IV antibiotics for now. ID on the case unfortunately can't obtain MRCP due to PPM # AMS : due to sepsis . improved after IVF and Abx. neuro exam is not focal # UTI: on antibiotics continue on Rocephin and Flagyl . # h/o siezures: cont keppra , resume phenobarbital # hypothyroidism : cont synthroid # hx of right craniotomy on Cortef, thyroid meds. continue Discussed with her Cousin name Kathya Mustafa call ed her primary teacher office# [phone], was not able to leave any message, will call again in am. cell # [phone] Patient is going for ERCP in am, NPO after midnight
--- NOTE | 2017-04-09 21:26 | PN ---
Progress Note (short form) - Note Progress Note: GI NOte: I introduced myself to Mrs. Guerrero this evening. I explained her situation and advised ERCP as had already been done by Dr Madrigal. I reiterated that there is a risk for perforation, hemorrhage and multiorgan failure that can be associated with ERCP induced pancreatitis. She is consenting to the procedure which I will undertake tomorrow.
[2017-04-09] MEDS: DEXTROSE 5%-0.45% SALINE 1,000 ML IV SCH (21:30)
[2017-04-10 00:06] LABS: HEP B SURFACE AB Non Reactive (.)
[2017-04-10] MEDS: PHENobarbital 30 MG TABLET PO SCH ×3 (00:14→16:04)
[2017-04-10] MEDS: DEXTROSE 5%-0.45% SALINE 1,000 ML IV SCH ×2 (00:15→21:41)
[2017-04-10] MEDS: METRONIDAZOLE 500 MG PREMIXED 100 ML IVPB SCH ×3 (01:22→17:34)
[2017-04-10] MEDS ORDERED: PT OWN MED DRAWER 7, Y5N ONE ×2 (07:56→17:29)
--- NOTE | 2017-04-10 07:58 | PN ---
Progress Note, Physician History of Present Illness: No events. Comfortable. ERCP this pm Vital Signs - 24 hr 04/09/17 04/09/17 04/09/17 09:00 13:52 16:20 Temperature 98 F 98.5 F 98.1 F Pulse Rate 76 63 60 Respiratory 18 18 20 Rate Blood Pressure 136/76 131/67 135/56 O2 Sat by Pulse 98 Oximetry (%) 04/09/17 04/09/17 04/10/17 21:00 22:00 06:00 Temperature 98.0 F 98.3 F Pulse Rate 71 60 Respiratory 19 20 Rate Blood Pressure 140/81 131/68 O2 Sat by Pulse 98 Oximetry (%) Laboratory Results - last 24 hr 04/07/17 04/08/17 04/09/17 18:40 05:35 09:25 WBC RBC Hgb Hct MCV MCH MCHC RDW Plt Count MPV Neutrophils % Lymphocytes % Monocytes % Eosinophils % Basophils % Sodium 146 H Potassium 3.7 Chloride 111 H Carbon Dioxide 27 Anion Gap 8 BUN 5 L Creatinine 0.9 Creat Clearance w eGFR > 60 Random Glucose 86 Calcium 8.5 Phosphorus 3.1 Total Bilirubin 5.9 H AST 44 H D ALT 88 H D Alkaline Phosphatase 182 H Total Protein 6.7 Albumin 3.0 L Hep A IgM Ab Confirm Negative Hepatitis A Ab Total Positive H Hep Bs Antigen Negative Hep Bs Antibody Non reactive Hep B Core Total Ab Negative Hepatitis C Antibody 0.1 04/09/17 04/09/17 09:25 09:25 WBC 6.8 RBC 4.32 Hgb 12.1 Hct 36.8 MCV 85.2 MCH 28.1 MCHC 32.9 RDW 15.2 Plt Count 205 MPV 8.7 Neutrophils % 74.6 Lymphocytes % 14.8 Monocytes % 6.9 Eosinophils % 3.2 Basophils % 0.5 Sodium Potassium Chloride Carbon Dioxide Anion Gap BUN Creatinine Creat Clearance w eGFR Random Glucose Calcium Phosphorus Cancelled Total Bilirubin AST ALT Alkaline Phosphatase Total Protein Albumin Hep A IgM Ab Confirm Hepatitis A Ab Total Hep Bs Antigen Hep Bs Antibody Hep B Core Total Ab Hepatitis C Antibody INR, PTT INR 1.36 (0.82-1.09) H 04/08/17 08:10 - Current Medication List Current Medications: Active Medications Heparin Sodium (Porcine) (Heparin -) 5,000 unit SQ Q8H-IV TANG Last Admin: 04/08/17 17:34 Dose: Not Given Hydrocortisone (Cortef -) 5 mg PO DAILY@1800 [facility] Last Admin: 04/09/17 17:32 Dose: 5 mg Hydrocortisone (Cortef -) 20 mg PO DAILY@0800 [facility] Last Admin: 04/09/17 08:36 Dose: 20 mg CEFTRIAXONE 1 G/50 ML PREMIX (Ceftriaxone 1 Gm-D5w Bag) 50 mls @ 100 mls/hr IVPB DAILY [facility] Last Admin: 04/09/17 10:39 Dose: 100 mls/hr Metronidazole (Flagyl 500mg Premixed Ivpb -) 100 mls @ 100 mls/hr IVPB Q8H-IV [facility] Last Admin: 04/10/17 01:22 Dose: 100 mls/hr Dextrose/Sodium Chloride (D5-1/2ns -) 1,000 mls @ 100 mls/hr IV ASDIR [facility] Last Admin: 04/10/17 00:15 Dose: 100 mls/hr Indomethacin (Indocin Suppository -) 50 mg IA ONCE ONE Stop: 04/10/17 11:31 Phenobarbital (Phenobarbital -) 30 mg PO Q8H [facility] Last Admin: 04/10/17 00:14 Dose: Not Given - Objective Vital Signs: Vital Signs Temperature 98.3 F 04/10/17 06:00 Pulse Rate 60 04/10/17 06:00 Respiratory Rate 20 04/10/17 06:00 Blood Pressure 131/68 04/10/17 06:00 O2 Sat by Pulse Oximetry (%) 98 04/09/17 21:00 Constitutional: Yes: No Distress, Calm Eyes: Yes: Conjunctiva Clear HENT: Yes: Atraumatic Neck: Yes: Supple Cardiovascular: Yes: Regular Rate and Rhythm Respiratory: Yes: Regular Gastrointestinal: Yes: Normal Bowel Sounds, Soft, Abdomen, Obese. No: Distention, Tenderness, Tenderness, Epigastrium, Tenderness, Rebound, Vomiting Integumentary: No: Jaundice Neurological: Yes: Alert, Oriented Problem List - Problems (1) Cholangitis due to bile duct calculus with obstruction Assessment/Plan: Afebrile and not in pain. ERCP this pm discussed with the patient PT/INR pending Code(s): K80.31 - CALCULUS OF BILE DUCT W CHOLANGITIS, UNSP, WITH OBSTRUCTION (2) Cholelithiasis and cholecystitis with obstruction Code(s): K80.19 - CALCULUS OF GALLBLADDER W OTH CHOLECYSTITIS WITH OBSTRUCTION Qualifiers: Cholelithiasis location: gallbladder and bile duct Cholecystitis acuity : acute Qualified Code(s): K80.63 - Calculus of gallbladder and bile duct with acute cholecystitis with obstruction; K80.63 - Calculus of gallbladder and bile duct with acute cholecystitis with obstruction
[2017-04-10 08:10] LABS: BASOPHIL 0.7 % (0-2.0); EOSINOPHIL 3.1 % (0-4.5); MCH 28.4 pg (25.7-33.7); MCHC 33.3 g/dl (32.0-36.0); MEAN CELL VOLUME 85.2 fl (80-96); MEAN PLT VOLUME 8.7 fl (7.5-11.1); NEUTROPHILS 67.3 % (42.8-82.8); PLATELET COUNT 223 K/MM3 (134-434); RDW 15.7 % (11.6-15.6); WHITE BLOOD COUNT 6.7 K/mm3 (4.0-10.0)
[2017-04-10 08:38] LABS: INR 1.18 (0.82-1.09); PROTHROMBIN TIME (PATIENT) 13.3 SEC (9.98-11.88)
[2017-04-10 08:46] LABS: ALBUMIN 3.1 g/dl (3.4-5.0); ANION GAP 7 (8-16); CALCIUM 8.4 mg/dL (8.5-10.1); CO2 28 mmol/L (21-32); GLUCOSE,RANDOM 85 mg/dL (74-106)
--- NOTE | 2017-04-10 08:46 | PN ---
Progress Note, Physician Chief Complaint: ID Asymptomatic - Current Medication List Current Medications: Active Medications Heparin Sodium (Porcine) (Heparin -) 5,000 unit SQ Q8H-IV [facility] Last Admin: 04/08/17 17:34 Dose: Not Given Hydrocortisone (Cortef -) 5 mg PO DAILY@1800 [facility] Last Admin: 04/09/17 17:32 Dose: 5 mg Hydrocortisone (Cortef -) 20 mg PO DAILY@0800 [facility] Last Admin: 04/09/17 08:36 Dose: 20 mg CEFTRIAXONE 1 G/50 ML PREMIX (Ceftriaxone 1 Gm-D5w Bag) 50 mls @ 100 mls/hr IVPB DAILY [facility] Last Admin: 04/09/17 10:39 Dose: 100 mls/hr Metronidazole (Flagyl 500mg Premixed Ivpb -) 100 mls @ 100 mls/hr IVPB Q8H-IV [facility] Last Admin: 04/10/17 01:22 Dose: 100 mls/hr Dextrose/Sodium Chloride (D5-1/2ns -) 1,000 mls @ 100 mls/hr IV ASDIR [facility] Last Admin: 04/10/17 00:15 Dose: 100 mls/hr Indomethacin (Indocin Suppository -) 50 mg ME ONCE ONE Stop: 04/10/17 11:31 Phenobarbital (Phenobarbital -) 30 mg PO Q8H [facility] Last Admin: 04/10/17 08:02 Dose: 30 mg - Objective Vital Signs: Vital Signs Temperature 98.3 F 04/10/17 06:00 Pulse Rate 60 04/10/17 06:00 Respiratory Rate 20 04/10/17 06:00 Blood Pressure 131/68 04/10/17 06:00 O2 Sat by Pulse Oximetry (%) 98 04/09/17 21:00 Constitutional: Yes: Well Nourished, No Distress Eyes: Yes: WNL, Conjunctiva Clear HENT: Yes: WNL, Atraumatic, Normocephalic Cardiovascular: Yes: Regular Rate and Rhythm, S1, S2. No: Murmur Respiratory: Yes: WNL, Regular, CTA Bilaterally Gastrointestinal: Yes: WNL, Normal Bowel Sounds, Soft. No: Tenderness, Tenderness, Rebound Labs: CBC, BMP 04/10/17 06:30 INR, PTT INR 1.36 (0.82-1.09) H 04/08/17 08:10 Problem List - Problems (1) Cholelithiases Code(s): K80.20 - CALCULUS OF GALLBLADDER W/O CHOLECYSTITIS W/O OBSTRUCTION (2) Elevated LFTs Code(s): R79.89 - OTHER SPECIFIED ABNORMAL FINDINGS OF BLOOD CHEMISTRY (3) UTI (urinary tract infection) Code(s): N39.0 - URINARY TRACT INFECTION, SITE NOT SPECIFIED Assessment/Plan Microbiology 04/07/17 02:30 Urine - Urine Clean Catch Urine Culture - Final NO GROWTH OBTAINED 04/07/17 05:00 Blood - Peripheral Venous Blood Culture - Preliminary NO GROWTH OBTAINED AFTER 72 HOURS, INCUBATION TO CONTINUE FOR 2 DAYS. 04/07/17 05:00 Blood - Peripheral Venous Blood Culture - Preliminary NO GROWTH OBTAINED AFTER 72 HOURS, INCUBATION TO CONTINUE FOR 2 DAYS. Laboratory Tests 04/09/17 04/10/17 09:25 06:30 WBC 6.7 Hgb 12.3 Hct 36.8 Plt Count 223 BUN 5 L Creatinine 0.9 AST 44 H D ALT 88 H D Alkaline Phosphatase 182 H Assessment For ERCP today Plan Patient can be switched to oral antibiotics tomorrow Augmentin Kindly recall as needed Robert HARP
[2017-04-10 08:47] LABS: ALK PHOS 202 U/L (45-117); BILIRUBIN,TOTAL 4.2 mg/dL (0.2-1.0); SGOT/AST 56 U/L (15-37); SGPT/ALT 80 U/L (12-78); TOT PROT 6.6 g/dl (6.4-8.2)
[2017-04-10] MEDS: HYDROCORTISONE 20 MG TABLET PO SCH (08:47)
--- NOTE | 2017-04-10 08:48 | CONS ---
DATE OF CONSULTATION: DATE OF DICTATION: 04/09/2017 HISTORY OF PRESENT ILLNESS: This is a 66-year-old -[place] female who I am asked to see for antibiotic management for acute cholecystitis. She initially presented to the hospital with concern about possible urosepsis as she was experiencing urinary incontinence. During the evaluation, she was found to have elevated liver enzymes, and a workup revealed complete biliary tract obstruction with acute cholecystitis by sonogram and HIDA studies. She has been seen by Dr. Brooke of General Surgery and is currently pending ERCP. At the present time, she denies any urinary or abdominal complaints. She has no nausea, vomiting, diarrhea, and has been afebrile throughout her hospitalization. She is currently on ceftriaxone and metronidazole. PAST MEDICAL HISTORY: Includes hyperlipidemia, status post craniotomy 1974, diabetes mellitus, chronic kidney disease. MEDICATIONS AT HOME: Parlodel, cortisone 25 mg daily, Keppra, Lipitor, Synthroid. ALLERGIES: None known. SOCIAL HISTORY: A nonsmoker, she is originally from [place], living in [place] many years. No history of substance abuse. She lives with a family member at home. She lives with a home health lvn in a residential senior facility. FAMILY HISTORY: Reviewed and noncontributory. REVIEW OF SYSTEMS: Respiratory: No cough or shortness of breath. Cardiac: No chest pain, palpitations, syncope. History of a permanent pacemaker. Abdomen: Soft, nontender. No vomiting, nausea, diarrhea, or weight loss. Genitourinary: Currently no dysuria, hematuria, or urinary frequency. PHYSICAL EXAMINATION: General: She was an alert, heavyset woman in no acute distress. Vital signs: Afebrile, pulse 109, blood pressure 132/76, respirations 20. Neck: Supple. Lungs: Clear. Heart: S1, S2, regular rhythm, without audible murmur. Chest: Symmetrical with a permanent pacemaker in situ. Abdomen: Positive bowel sounds. Soft, nontender. No organomegaly, guarding, or rebound. Extremities: No clubbing, cyanosis, or edema. LABORATORY DATA: The white count was 9.3, hemoglobin 12.2, platelets 182. INR 1.36. BUN 6, creatinine 1.1, AST 67, ALT 116, alkaline phosphatase 173, bilirubin 6.8, direct 5.7. Hepatitis C screening negative. Two sets of blood cultures and urine culture no growth. Abdominal ultrasound limited shows contacted gallbladder with multiple gallstones, hepatomegaly, and diffuse fatty infiltration of the liver. HIDA scan sonographic findings suggestive of near total common bile duct obstruction and cystic duct obstruction with cholecystitis. ASSESSMENT: 1. Acute cholecystitis with common bile duct obstruction. 2. Urinary tract infection. Culture negative. PLAN: Continue current antibiotic management with ceftriaxone and metronidazole as ordered. GI consultation for schedule of ERCP. Surgical followup. Will ultimately need a cholecystectomy. Case was discussed with Dr. Mcnela. BÁRBARA PURCELL M.D. [id number]
[2017-04-10] MEDS: CEFTRIAXONE 1 G/50 ML PREMIX 50 ML IVPB SCH (09:24)
--- NOTE | 2017-04-10 10:24 | PN ---
Teaching Attending Note Name of Resident: Chichi Cole ATTENDING PHYSICIAN STATEMENT I saw and evaluated the patient. I reviewed the resident's note and discussed the case with the resident. I agree with the resident's findings and plan as documented. SUBJECTIVE: Patient is comfortable with no acute distress, denies any pain, But states that she is urinating a lot. OBJECTIVE: Vital Signs Temperature 98.3 F 04/10/17 06:00 Pulse Rate 60 04/10/17 06:00 Respiratory Rate 20 04/10/17 06:00 Blood Pressure 131/68 04/10/17 06:00 O2 Sat by Pulse Oximetry (%) 98 04/09/17 21:00 CBCD WBC 6.7 K/mm3 (4.0-10.0) 04/10/17 06:30 RBC 4.31 M/mm3 (3.60-5.2) 04/10/17 06:30 Hgb 12.3 GM/dL (10.7-15.3) 04/10/17 06:30 Hct 36.8 % (32.4-45.2) 04/10/17 06:30 MCV 85.2 fl (80-96) 04/10/17 06:30 MCHC 33.3 g/dl (32.0-36.0) 04/10/17 06:30 RDW 15.7 % (11.6-15.6) H 04/10/17 06:30 Plt Count 223 K/MM3 (134-434) 04/10/17 06:30 MPV 8.7 fl (7.5-11.1) 04/10/17 06:30 CMP Sodium 146 mmol/L (136-145) H 04/10/17 06:30 Potassium 3.8 mmol/L (3.5-5.1) 04/10/17 06:30 Chloride 111 mmol/L (98-107) H 04/10/17 06:30 Carbon Dioxide 28 mmol/L (21-32) 04/10/17 06:30 Anion Gap 7 (8-16) L 04/10/17 06:30 BUN 6 mg/dL (7-18) L 04/10/17 06:30 Creatinine 1.0 mg/dL (0.55-1.02) 04/10/17 06:30 Creat Clearance w eGFR 55.14 (>60) 04/10/17 06:30 Random Glucose 85 mg/dL (74-106) 04/10/17 06:30 Calcium 8.4 mg/dL (8.5-10.1) L 04/10/17 06:30 Total Bilirubin 4.2 mg/dL (0.2-1.0) H D 04/10/17 06:30 AST 56 U/L (15-37) H D 04/10/17 06:30 ALT 80 U/L (12-78) H 04/10/17 06:30 Alkaline Phosphatase 202 U/L (45-117) H 04/10/17 06:30 Total Protein 6.6 g/dl (6.4-8.2) 04/10/17 06:30 Albumin 3.1 g/dl (3.4-5.0) L 04/10/17 06:30 CARDIAC ENZYMES Creatine Kinase 271 IU/L (26-192) H 04/07/17 11:56 Troponin I 0.04 ng/ml (0.00-0.05) 04/07/17 11:56 Current Medications Generic Name Dose Route Start Last Admin Trade Name Freq PRN Reason Stop Dose Admin Heparin Sodium (Porcine) 5,000 unit 04/07/17 10:00 04/08/17 17:34 Heparin - SQ Not Given Q8H-IV TANG Hydrocortisone 5 mg 04/08/17 18:00 04/09/17 17:32 Cortef - PO 5 mg DAILY@1800 TANG Administration Hydrocortisone 20 mg 04/08/17 10:00 04/10/17 08:47 Cortef - PO 20 mg DAILY@0800 TANG Administration CEFTRIAXONE 1 G/50 ML PREMIX 50 mls @ 100 mls/hr 04/07/17 10:00 04/10/17 09:24 Ceftriaxone 1 Gm-D5w Bag IVPB 100 mls/hr DAILY TANG Administration Metronidazole 100 mls @ 100 mls/hr 04/07/17 10:00 04/10/17 09:19 Flagyl 500mg Premixed Ivpb - IVPB 100 mls/hr Q8H-IV TANG Administration Dextrose/Sodium Chloride 1,000 mls @ 100 mls/hr 04/09/17 21:30 04/10/17 00:15 D5-1/2ns - IV 100 mls/hr ASDIR TANG Administration Indomethacin 50 mg 04/10/17 11:30 Indocin Suppository - [place] 04/10/17 11:31 ONCE ONE Phenobarbital 30 mg 04/07/17 16:15 04/10/17 08:02 Phenobarbital - PO 30 mg Q8H TANG Administration Home Medications Medication Instructions Recorded Acetaminophen [Tylenol] 650 mg PO Q4H 10/13/12 Bromocriptine Mesylate [Parlodel -] 5 mg PO DAILY #0 tablet 10/16/12 Cortisone Acetate [Cortisone -] 25 mg PO DAILY #0 tablet 10/16/12 Levetiracetam [Keppra -] 500 mg PO BID #0 tablet 10/16/12 Metronidazole [Flagyl -] 250 mg PO Q6HPO #0 tablet 10/16/12 Atorvastatin Ca [Lipitor] 10 mg PO HS 04/07/17 Cholecalciferol (Vitamin D3) 1,000 iu PO DAILY 04/07/17 [Vitamin D3 -] Furosemide [Lasix -] 40 mg PO DAILY 04/07/17 Levothyroxine [Synthroid -] 175 mcg PO DAILY 04/07/17 Phenobarbital 40 mg PO DAILY 04/07/17 Phenobarbital - 30 mg PO TID 04/07/17 Potassium Chloride [K-Dur -] 10 meq PO DAILY 04/07/17 PE: per resident's note ASSESSMENT AND PLAN: 66 y/o lady withh/o 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 Patient will be going for ERCP today , npo till the procedure. Continue IV antibiotics for now. ID on the case unfortunately can't obtain MRCP due to PPM # AMS : due to sepsis . improved after IVF and Abx. neuro exam is not focal # UTI: on antibiotics continue on Rocephin and Flagyl . # h/o siezures: cont keppra , resume phenobarbital # hypothyroidism : cont synthroid # hx of right craniotomy on Cortef, thyroid meds. continue Discussed with her Cousin name Kathya Mustafa called her head bone grinder office# [phone], was discussed with the MD Patient is going for ERCP today , patient is NPO
--- NOTE | 2017-04-10 11:18 | PN ---
Physical Exam: SUBJECTIVE: Patient seen and examined. She doesn't have any complaints. No overnight events. OBJECTIVE: Vital Signs Period Temp Pulse Resp BP Sys/Saleem Pulse Ox Last 24 Hr 98.0 F-98.5 F 60-71 18-20 131-140/56-81 98 GENERAL: The patient is awake, alert, and fully oriented, in no acute distress. HEAD: Normal with no signs of trauma. EYES: PERRL, extraocular movements intact, sclera anicteric, conjunctiva clear. No ptosis. ENT: Ears normal, nares patent, oropharynx clear without exudates, moist mucous membranes. NECK: Trachea midline, full range of motion, supple. LUNGS: Breath sounds equal, clear to auscultation bilaterally, no wheezes, no crackles, no accessory muscle use. HEART: Regular rate and rhythm, S1, S2 without murmur, rub or gallop. ABDOMEN: Soft, nontender, nondistended, normoactive bowel sounds, no guarding, no rebound, no hepatosplenomegaly, no masses. EXTREMITIES: well-perfused, no edema. NEUROLOGICAL:Normal speech, gait not observed. PSYCH: Normal mood, normal affect. SKIN: Warm, dry, normal turgor, no rashes or lesions noted Laboratory Results - last 24 hr 04/08/17 04/09/17 04/09/17 05:35 09:25 09:25 WBC RBC Hgb Hct MCV MCH MCHC RDW Plt Count MPV Neutrophils % Lymphocytes % Monocytes % Eosinophils % Basophils % PT with INR INR Sodium 146 H Potassium 3.7 Chloride 111 H Carbon Dioxide 27 Anion Gap 8 BUN 5 L Creatinine 0.9 Creat Clearance w eGFR > 60 Random Glucose 86 Calcium 8.5 Phosphorus 3.1 Cancelled Total Bilirubin 5.9 H AST 44 H D ALT 88 H D Alkaline Phosphatase 182 H Total Protein 6.7 Albumin 3.0 L Hep A IgM Ab Confirm Negative Hepatitis A Ab Total Positive H Hep Bs Antigen Negative Hep Bs Antibody Non reactive Hep B Core Total Ab Negative 04/10/17 04/10/17 04/10/17 06:30 06:30 06:30 WBC 6.7 RBC 4.31 Hgb 12.3 Hct 36.8 MCV 85.2 MCH 28.4 MCHC 33.3 RDW 15.7 H Plt Count 223 MPV 8.7 Neutrophils % 67.3 Lymphocytes % 22.0 D Monocytes % 6.9 Eosinophils % 3.1 Basophils % 0.7 PT with INR 13.30 H INR 1.18 H Sodium 146 H Potassium 3.8 Chloride 111 H Carbon Dioxide 28 Anion Gap 7 L BUN 6 L Creatinine 1.0 Creat Clearance w eGFR 55.14 Random Glucose 85 Calcium 8.4 L Phosphorus Total Bilirubin 4.2 H D AST 56 H D ALT 80 H Alkaline Phosphatase 202 H Total Protein 6.6 Albumin 3.1 L Hep A IgM Ab Confirm Hepatitis A Ab Total Hep Bs Antigen Hep Bs Antibody Hep B Core Total Ab Active Medications Generic Name Dose Route Start Last Admin Trade Name Freq PRN Reason Stop Dose Admin Heparin Sodium (Porcine) 5,000 unit 04/07/17 10:00 04/08/17 17:34 Heparin - SQ Not Given Q8H-IV TANG Hydrocortisone 5 mg 04/08/17 18:00 04/09/17 17:32 Cortef - PO 5 mg DAILY@1800 TANG Administration Hydrocortisone 20 mg 04/08/17 10:00 04/10/17 08:47 Cortef - PO 20 mg DAILY@0800 TANG Administration CEFTRIAXONE 1 G/50 ML PREMIX 50 mls @ 100 mls/hr 04/07/17 10:00 04/10/17 09:24 Ceftriaxone 1 Gm-D5w Bag IVPB 100 mls/hr DAILY TANG Administration Metronidazole 100 mls @ 100 mls/hr 04/07/17 10:00 04/10/17 09:19 Flagyl 500mg Premixed Ivpb - IVPB 100 mls/hr Q8H-IV TANG Administration Dextrose/Sodium Chloride 1,000 mls @ 100 mls/hr 04/09/17 21:30 04/10/17 00:15 D5-1/2ns - IV 100 mls/hr ASDIR TANG Administration Indomethacin 50 mg 04/10/17 11:30 Indocin Suppository - [place] 04/10/17 11:31 ONCE ONE Phenobarbital 30 mg 04/07/17 16:15 04/10/17 08:02 Phenobarbital - PO 30 mg Q8H TANG Administration ASSESSMENT/PLAN: 66yo F with HTN, DM, CKD, CAD, seizure disorder, hypothryroidism, panhypopitutitarism, 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 sepsis due to UTI or liver hepatobiliary source like cholecystitis/cholangitis or UTI continue on Ceftriaxone 1g and Flagyl 500mg Q8H ERCP by Dr Reyes cultures- pending WBC count trending down, today 9.3 cont fluids UA positive for infection U cultures and blood cultures show no growth Acute cholecystitis/cholangitis positive for gallstones and no biliary duct dilatation elevated Tbili and D bili, and Alkaline Phosph, LFTs still elevated today but slowly coming down GI consulted, will follow recommendations NPO HIDA elevated troponin likely related to demand ischemia 2/2 sepsis mormalized Hypernatremia on admission 147 -continue IVF [id number] on CKD continue IVF, Cr today is 1.3 avoid nephrotoxic substances hypothyroidism continue Synthroid AMS possibly due to sepsis reported by her cousin but the pt is oriented in the hospital h/o of [place]roy[place] hypopituitarism continue Hydrocortisone 5 and 20 mg h/o seizure disorder no seizure activity in the hospital cont Phenobarbital h/o brain tumor hold bromocriptine for now Ppx SCDs / Heparin SQ TID no GI ppx indicated at this time Disposition: continue med surg Problem List - Problems (1) Change in mental status Code(s): R41.82 - ALTERED MENTAL STATUS, UNSPECIFIED (2) Cholelithiases Code(s): K80.20 - CALCULUS OF GALLBLADDER W/O CHOLECYSTITIS W/O OBSTRUCTION (3) Cholelithiasis and cholecystitis with obstruction Code(s): K80.19 - CALCULUS OF GALLBLADDER W OTH CHOLECYSTITIS WITH OBSTRUCTION Qualifiers: Cholelithiasis location: gallbladder and bile duct Cholecystitis acuity : acute Qualified Code(s): K80.63 - Calculus of gallbladder and bile duct with acute cholecystitis with obstruction; K80.63 - Calculus of gallbladder and bile duct with acute cholecystitis with obstruction (4) Elevated LFTs Code(s): R79.89 - OTHER SPECIFIED ABNORMAL FINDINGS OF BLOOD CHEMISTRY (5) UTI (urinary tract infection) Code(s): N39.0 - URINARY TRACT INFECTION, SITE NOT SPECIFIED Visit type - Emergency Visit Emergency Visit: Yes ED Registration Date: 04/07/17 Care time: The patient presented to the Emergency Department on the above date and was hospitalized for further evaluation of their emergent condition. - New Patient This patient is new to me today: No - Critical Care Critical Care patient: No
[2017-04-10] MEDS ORDERED: HYDROCORTISONE SOD SUCCINATE 100 MG/2 ML VIAL IVPB ONE (11:29)
[2017-04-10] MEDS ORDERED: INDOMETHACIN 50 MG RECTAL SUPPOSITORY PR ONE ×2 (11:30→13:00)
[2017-04-10] MEDS ORDERED: ONDANSETRON 4 MG/2 ML VIAL IVPUSH PRN (12:37)
[2017-04-10] MEDS ORDERED: PROMETHAZINE HCL 25 MG/1 ML VIAL IVPUSH PRN (12:37)
[2017-04-10] MEDS ORDERED: LIDOCAINE HCL/PF 2% SDV 5ML VIAL ONE (12:40)
[2017-04-10] MEDS ORDERED: ROCURONIUM BROMIDE 50 MG/5 ML VIAL ONE (12:40)
[2017-04-10] MEDS ORDERED: GLUCAGON 1 MG KIT ONE (12:40)
[2017-04-10] MEDS ORDERED: PROPOFOL 20 ML ONE (12:40)
[2017-04-10] MEDS ORDERED: DEXAMETHASONE SOD PHOSPHATE 10 MG/1 ML VIAL ONE (12:41)
[2017-04-10] MEDS ORDERED: NEOSTIGMINE METHYLSULFATE 0.5 MG/ML - 10 ML MDV ONE (12:41)
[2017-04-10] MEDS ORDERED: GLYCOPYRROLATE 0.2 MG/1 ML VIAL ONE ×3 (12:41)
[2017-04-10] MEDS ORDERED: LACTATED RINGERS SOLUTION 1,000 ML IV SCH (12:45)
[2017-04-10] MEDS ORDERED: DESFLURANE GAS 240 ML BOTTLE IH ONE (13:29)
--- NOTE | 2017-04-10 14:54 | PN ---
Progress Note (short form) - Note Progress Note: GI Procedure NOte: Please see ERCP report. After making a needle knife precut fistulotomy the common bile duct was acccessed and revealed 2 stones. A sphincterotomy was performed and the stones were extracted. The bile duct failed to drain adequately so a biliary stent was inserted. Findings were discussed with the patient, her family and Dr Brooke. Dr Crabtree also notified.
[2017-04-10] MEDS ORDERED: LABETALOL HCL 5 MG/1 ML (100MG/20 ML VIAL) ONE (15:14)
[2017-04-10] MEDS ORDERED: DEXTROSE 5%-0.45% SALINE 1,000 ML IV SCH ×2 (15:15→21:15)
[2017-04-10] MEDS: HYDROCORTISONE 10 MG TABLET PO SCH (17:34)
[2017-04-11] MEDS: METRONIDAZOLE 500 MG PREMIXED 100 ML IVPB SCH ×3 (01:11→17:54)
[2017-04-11] MEDS: PHENobarbital 30 MG TABLET PO SCH ×3 (01:11→17:52)
[2017-04-11] MEDS: HEPARIN NA (PORCINE) 5,000 UNITS/ML 1ML VIAL SQ SCH ×3 (01:11→17:54)
[2017-04-11 07:57] LABS: BASOPHIL 0.2 % (0-2.0); EOSINOPHIL 0.1 % (0-4.5); MCH 28.1 pg (25.7-33.7); MCHC 32.6 g/dl (32.0-36.0); MEAN PLT VOLUME 8.6 fl (7.5-11.1); NEUTROPHILS 79.4 % (42.8-82.8); PLATELET COUNT 253 K/MM3 (134-434); RDW 15.7 % (11.6-15.6); WHITE BLOOD COUNT 11.8 K/mm3 (4.0-10.0)
[2017-04-11] MEDS ORDERED: PT OWN MED DRAWER 7, Y5N ONE ×3 (08:04→17:51)
[2017-04-11] MEDS: DEXTROSE 5%-0.45% SALINE 1,000 ML IV SCH ×3 (08:14→21:52)
[2017-04-11] MEDS: HYDROCORTISONE 20 MG TABLET PO SCH (08:16)
[2017-04-11 08:37] LABS: ALBUMIN 3.1 g/dl (3.4-5.0); AMYLASE 116 U/L (25-115); ANION GAP 11 (8-16); C-REACTIVE PROTEIN 6.7 MG/DL (0.00-0.3); CALCIUM 8.4 mg/dL (8.5-10.1); CO2 25 mmol/L (21-32); CREATININE 0.9 mg/dL (0.55-1.02); GLUCOSE,RANDOM 90 mg/dL (74-106); SGOT/AST 98 U/L (15-37); SGPT/ALT 99 U/L (12-78)
[2017-04-11 08:40] LABS: ALK PHOS 214 U/L (45-117); BILIRUBIN,DIRECT 2.2 mg/dL (0.0-0.2); BILIRUBIN,TOTAL 2.8 mg/dL (0.2-1.0); TOT PROT 6.6 g/dl (6.4-8.2)
--- NOTE | 2017-04-11 09:26 | PN ---
Progress Note (short form) - Note Progress Note: Anesthesia Post Op Pt seen and examined S;alert and awake O: Vital Signs Temperature 98.1 F 04/11/17 06:54 Pulse Rate 68 04/11/17 06:54 Respiratory Rate 20 04/11/17 06:54 Blood Pressure 151/77 04/11/17 06:54 O2 Sat by Pulse Oximetry (%) 95 04/10/17 21:00 CBC, BMP 04/11/17 07:00 04/11/17 07:00 A/P: Change in mental status (Acute) Cholangitis due to bile duct calculus with obstruction (Acute) Cholelithiases (Acute) Cholelithiasis and cholecystitis with obstruction (Acute) Elevated LFTs (Acute) UTI (urinary tract infection) (Acute) s/p ercp Doing well post op Continue current care Emigdio Najera MD
[2017-04-11] MEDS: CEFTRIAXONE 1 G/50 ML PREMIX 50 ML IVPB SCH (09:34)
--- NOTE | 2017-04-11 10:57 | PN ---
Progress Note (short form) - Note Progress Note: Attending Surgeon No c/o s/p ERCP and related procedures; tolerated clear liquids VSS AF abdomen -soft labs noted IMP:stable PLAN: lap kathy 04/13/17; r/b/t/a's d/w the patint who wishes to proceed. Jermain Brooke MD FACS
--- NOTE | 2017-04-11 14:57 | PN ---
GI Progress Note Subjective: Gi NOte: I discussed the events surrounding her ERCP with Mary Ann again today. 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 I have advised her to make an appointment in our office to arrange a repeat ERCP in 4 months to remove the stent. I informed her that failure to remove the stent in proper time could lead to injury to the CBD including stricture formation. She denies pain so I do not believe that she has clinical pancreatitis and they her lipase elevation reflects yesterday's ERCP manipulations. - Objective Vital Signs: Vital Signs Temperature 97.8 F 04/11/17 08:40 Pulse Rate 60 04/11/17 08:40 Respiratory Rate 18 04/11/17 08:40 Blood Pressure 146/80 04/11/17 08:40 O2 Sat by Pulse Oximetry (%) 95 04/10/17 21:00 Constitutional: Calm Eyes: Yes: Sclera Icterus ...Auscultate: Yes: Normoactive Bowel Sounds ...Palpate: Yes: Soft, Other (nontender) Labs: CBC, BMP 04/11/17 07:00 04/11/17 07:00 INR, PTT INR 1.18 (0.82-1.09) H 04/10/17 06:30 Microbiology 04/07/17 05:00 Blood - Peripheral Venous Blood Culture - Preliminary NO GROWTH OBTAINED AFTER 96 HOURS, INCUBATION TO CONTINUE FOR 1 DAYS. Laboratory Tests 04/08/17 04/10/17 04/11/17 05:35 06:30 07:00 Total Bilirubin 4.2 H D 2.8 H D Direct Bilirubin 2.2 H D AST 56 H D 98 H D ALT 80 H 99 H D Alkaline Phosphatase 202 H 214 H Total Amylase 116 H Lipase 1187 H Hep A IgM Ab Confirm Negative Hepatitis A Ab Total Positive H Hep Bs Antigen Negative Hep Bs Antibody Non reactive Hep B Core Total Ab Negative Assessment/Plan Day 1 s/p ERCP with stone extractions and stent insertion now with decreasing bilirubin. Agree with plan to proceed with cathie nolasco on Thursday. Mary Ann agrees to followup in our office to arrange stent removal.
--- NOTE | 2017-04-11 15:33 | PN ---
Progress Note, Physician - Current Medication List Current Medications: Active Medications Fentanyl (Sublimaze Injection -) 50 mcg IVPUSH [id number] PRN PRN Reason: PAIN Stop: 04/13/17 12:38 Heparin Sodium (Porcine) (Heparin -) 5,000 unit SQ Q8H-IV [facility] [place] Last Admin: 04/11/17 09:35 Dose: 5,000 unit Hydrocortisone (Cortef -) 5 mg PO DAILY@1800 [facility] [place] Last Admin: 04/10/17 17:34 Dose: 5 mg Hydrocortisone (Cortef -) 20 mg PO DAILY@0800 [facility] Last Admin: 04/11/17 08:16 Dose: 20 mg Metronidazole (Flagyl 500mg Premixed Ivpb -) 100 mls @ 100 mls/hr IVPB Q8H-IV [facility] [place] Last Admin: 04/11/17 09:35 Dose: 100 mls/hr Dextrose/Sodium Chloride (D5-1/2ns -) 1,000 mls @ 100 mls/hr IV ASDIR [facility] Last Admin: 04/11/17 08:14 Dose: 100 mls/hr CEFTRIAXONE 1 G/50 ML PREMIX (Ceftriaxone 1 Gm-D5w Bag) 50 mls @ 100 mls/hr IVPB DAILY [facility] [place] Last Admin: 04/11/17 09:34 Dose: 100 mls/hr Dextrose/Sodium Chloride (D5-1/2ns -) 1,000 mls @ 75 mls/hr IV ASDIR [facility] [place] Last Admin: 04/11/17 08:16 Dose: Not Given Phenobarbital (Phenobarbital -) 30 mg PO Q8H [facility] [place] Last Admin: 04/11/17 08:16 Dose: 30 mg - Objective Vital Signs: Vital Signs Temperature 98.1 F 04/11/17 15:22 Pulse Rate 61 04/11/17 15:22 Respiratory Rate 18 04/11/17 15:22 Blood Pressure 135/74 04/11/17 15:22 O2 Sat by Pulse Oximetry (%) 95 04/10/17 21:00 Constitutional: Yes: Well Nourished, No Distress, Calm Eyes: Yes: WNL, Conjunctiva Clear, EOM Intact HENT: Yes: WNL, Atraumatic, Normocephalic Neck: Yes: Supple, Trachea Midline Cardiovascular: Yes: WNL, Regular Rate and Rhythm Respiratory: Yes: WNL, Regular, CTA Bilaterally Gastrointestinal: Yes: WNL, Normal Bowel Sounds, Soft, Abdomen, Obese Labs: CBC, BMP 04/11/17 07:00 04/11/17 07:00 INR, PTT INR 1.18 (0.82-1.09) H 04/10/17 06:30 Problem List - Problems (1) Cholangitis due to bile duct calculus with obstruction Assessment/Plan: patient is scheduled for a cholecystectomy on thursday Code(s): K80.31 - CALCULUS OF BILE DUCT W CHOLANGITIS, UNSP, WITH OBSTRUCTION (2) Elevated LFTs Assessment/Plan: trending down will follow up with GI recommendation Code(s): R79.89 - OTHER SPECIFIED ABNORMAL FINDINGS OF BLOOD CHEMISTRY (3) Obese body habitus Assessment/Plan: patient was recommended weight loss Code(s): E66.9 - OBESITY, UNSPECIFIED
[2017-04-11] MEDS: HYDROCORTISONE 10 MG TABLET PO SCH (17:52)
[2017-04-12] MEDS: PHENobarbital 30 MG TABLET PO SCH ×3 (00:17→16:42)
[2017-04-12] MEDS: HEPARIN NA (PORCINE) 5,000 UNITS/ML 1ML VIAL SQ SCH ×3 (02:02→17:19)
[2017-04-12] MEDS: METRONIDAZOLE 500 MG PREMIXED 100 ML IVPB SCH ×3 (02:02→17:19)
[2017-04-12] MEDS ORDERED: PT OWN MED DRAWER 7, Y5N ONE ×3 (02:07→11:10)
[2017-04-12] MEDS: DEXTROSE 5%-0.45% SALINE 1,000 ML IV SCH ×2 (02:08→11:36)
[2017-04-12] MEDS: HYDROCORTISONE 20 MG TABLET PO SCH (08:18)
[2017-04-12 09:39] LABS: MCH 28.3 pg (25.7-33.7); MEAN CELL VOLUME 85.7 fl (80-96); MEAN PLT VOLUME 8.5 fl (7.5-11.1); PLATELET COUNT 279 K/MM3 (134-434); RDW 16.3 % (11.6-15.6); WHITE BLOOD COUNT 9.6 K/mm3 (4.0-10.0)
--- NOTE | 2017-04-12 09:53 | PN ---
GI Progress Note Subjective: GI Note: Has no pain and is hungry. No longer icteric but repeat LFTs are still pending. No fevers. - Objective Vital Signs: Vital Signs Temperature 98.4 F 04/12/17 07:56 Pulse Rate 62 04/12/17 07:56 Respiratory Rate 20 04/12/17 07:56 Blood Pressure 156/86 04/12/17 07:56 O2 Sat by Pulse Oximetry (%) 97 04/11/17 20:53 Constitutional: Calm ...Auscultate: Yes: Normoactive Bowel Sounds ...Palpate: Yes: Soft, Other (nontender) Labs: CBC, BMP 04/12/17 08:45 INR, PTT INR 1.18 (0.82-1.09) H 04/10/17 06:30 Laboratory Tests 04/12/17 04/12/17 08:45 08:45 WBC 9.6 Total Bilirubin Pending AST Pending ALT Pending Alkaline Phosphatase Pending Assessment/Plan Day 2 s/p ERCP with stone extractions and stent insertion now anicteric. Agree with plan to proceed with cathie nolasco on Thursday. Mary Ann agrees to followup in our office to arrange stent removal. Will allow low fat diet today.
[2017-04-12 10:05] LABS: ALBUMIN 3.2 g/dl (3.4-5.0); ANION GAP 7 (8-16); CALCIUM 8.2 mg/dL (8.5-10.1); CO2 29 mmol/L (21-32); GLUCOSE,RANDOM 85 mg/dL (74-106)
[2017-04-12 10:09] LABS: ALK PHOS 226 U/L (45-117); CREATININE 0.9 mg/dL (0.55-1.02); SGOT/AST 106 U/L (15-37); SGPT/ALT 109 U/L (12-78); TOT PROT 6.9 g/dl (6.4-8.2)
--- NOTE | 2017-04-12 11:01 | PN ---
Progress Note (short form) - Note Progress Note: Attending Suregeon No c/o; seen in f/u by GI; concur w/a/p; for lap kathy possible open 05/14/17 as previously discussed w/patient; consent obtained. Jermain Brooke MD FACS
[2017-04-12] MEDS: CEFTRIAXONE 1 G/50 ML PREMIX 50 ML IVPB SCH (11:34)
--- NOTE | 2017-04-12 13:36 | PN ---
Progress Note, Physician - Current Medication List Current Medications: Active Medications Fentanyl (Sublimaze Injection -) 50 mcg IVPUSH [id number] PRN PRN Reason: PAIN Stop: 04/13/17 12:38 Heparin Sodium (Porcine) (Heparin -) 5,000 unit SQ Q8H-IV [facility] Last Admin: 04/12/17 10:11 Dose: 5,000 unit Hydrocortisone (Cortef -) 5 mg PO DAILY@1800 [facility] Last Admin: 04/11/17 17:52 Dose: 5 mg Hydrocortisone (Cortef -) 20 mg PO DAILY@0800 [facility] Last Admin: 04/12/17 08:18 Dose: 20 mg Metronidazole (Flagyl 500mg Premixed Ivpb -) 100 mls @ 100 mls/hr IVPB Q8H-IV [facility] Last Admin: 04/12/17 10:09 Dose: 100 mls/hr CEFTRIAXONE 1 G/50 ML PREMIX (Ceftriaxone 1 Gm-D5w Bag) 50 mls @ 100 mls/hr IVPB DAILY [facility] Last Admin: 04/12/17 11:34 Dose: 100 mls/hr Dextrose/Sodium Chloride (D5-1/2ns -) 1,000 mls @ 75 mls/hr IV ASDIR [facility] Last Admin: 04/12/17 11:36 Dose: 75 mls/hr Phenobarbital (Phenobarbital -) 30 mg PO Q8H [facility] Last Admin: 04/12/17 08:18 Dose: 30 mg Potassium Chloride (K-Dur -) 40 meq PO ONCE ONE Stop: 04/12/17 13:31 Potassium Chloride (K-Dur -) 40 meq PO ONCE ONE Stop: 04/12/17 13:32 - Objective Vital Signs: Vital Signs Temperature 97.4 F L 04/12/17 09:00 Pulse Rate 65 04/12/17 09:00 Respiratory Rate 20 04/12/17 09:00 Blood Pressure 155/83 04/12/17 09:00 O2 Sat by Pulse Oximetry (%) 97 04/11/17 20:53 Constitutional: Yes: Well Nourished, No Distress, Calm Eyes: Yes: WNL, Conjunctiva Clear, EOM Intact HENT: Yes: WNL, Atraumatic, Normocephalic Neck: Yes: WNL, Supple, Trachea Midline Cardiovascular: Yes: WNL, Regular Rate and Rhythm Respiratory: Yes: WNL, Regular, CTA Bilaterally Gastrointestinal: Yes: WNL, Normal Bowel Sounds, Soft, Abdomen, Obese ...Rectal Exam: Yes: Deferred Labs: CBC, BMP 04/12/17 08:45 04/12/17 08:45 INR, PTT INR 1.18 (0.82-1.09) H 04/10/17 06:30 Problem List - Problems (1) Cholangitis due to bile duct calculus with obstruction Assessment/Plan: patient is doing well she has no complaints no fever follow with GI recommendation plan cholecystectomy thursday NPO PM tonight Code(s): K80.31 - CALCULUS OF BILE DUCT W CHOLANGITIS, UNSP, WITH OBSTRUCTION (2) Elevated LFTs Assessment/Plan: down trending 2/2 cholecystitis Code(s): R79.89 - OTHER SPECIFIED ABNORMAL FINDINGS OF BLOOD CHEMISTRY (3) Obese body habitus Code(s): E66.9 - OBESITY, UNSPECIFIED (4) Hypokalemia Assessment/Plan: supplemented 80meqs of K+ will repeat in the AM labs Code(s): E87.6 - HYPOKALEMIA (5) HTN (hypertension) Assessment/Plan: will start the patient on medication after the patient goes for surgery Code(s): I10 - ESSENTIAL (PRIMARY) HYPERTENSION Qualifiers: Hypertension type: essential hypertension Qualified Code(s): I10 - Essential (primary) hypertension; I10 - Essential (primary) hypertension; I10 - Essential (primary) hypertension
[2017-04-12] MEDS ORDERED: LOSARTAN POTASSIUM 25 MG TABLET PO ONE (14:00)
[2017-04-12] MEDS ORDERED: POTASSIUM CHLORIDE TABS 20 MEQ TABLET.ER (FP) PO ONE ×2 (14:00→16:30)
[2017-04-12] MEDS: HYDROCORTISONE 10 MG TABLET PO SCH (17:17)
[2017-04-13] MEDS: PHENobarbital 30 MG TABLET PO SCH ×4 (00:06→21:12)
[2017-04-13] MEDS: METRONIDAZOLE 500 MG PREMIXED 100 ML IVPB SCH ×2 (01:29→14:46)
[2017-04-13] MEDS: HEPARIN NA (PORCINE) 5,000 UNITS/ML 1ML VIAL SQ SCH ×4 (01:30→21:12)
[2017-04-13] MEDS ORDERED: BUPIVACAINE HCL/PF 0.5% (5MG/ML) 10 ML VIAL ONE (07:28)
[2017-04-13] MEDS ORDERED: POTASSIUM CHLORIDE TABS 20 MEQ TABLET.ER (FP) PO ONE (07:43)
[2017-04-13] MEDS ORDERED: ROCURONIUM BROMIDE 50 MG/5 ML VIAL ONE (08:00)
[2017-04-13] MEDS ORDERED: PROPOFOL 20 ML ONE (08:00)
[2017-04-13 08:18] LABS: MCH 28.3 pg (25.7-33.7); MCHC 32.7 g/dl (32.0-36.0); MEAN CELL VOLUME 86.5 fl (80-96); MEAN PLT VOLUME 8.5 fl (7.5-11.1); PLATELET COUNT 281 K/MM3 (134-434); RDW 15.8 % (11.6-15.6); WHITE BLOOD COUNT 9.4 K/mm3 (4.0-10.0)
[2017-04-13] MEDS ORDERED: ceFAZolin SODIUM 1 GM VIAL ONE (08:22)
[2017-04-13] MEDS ORDERED: BUPIVACAINE HCL/PF 0.5% (5MG/ML) 10 ML VIAL IJ ONE (08:33)
[2017-04-13 08:45] LABS: INR 1.1 (0.82-1.09); PROTHROMBIN TIME (PATIENT) 12.4 SEC (9.98-11.88)
[2017-04-13 08:58] LABS: ALBUMIN 3.1 g/dl (3.4-5.0); AMYLASE 64 U/L (25-115); ANION GAP 7 (8-16); CALCIUM 7.9 mg/dL (8.5-10.1); CO2 27 mmol/L (21-32); GLUCOSE,RANDOM 75 mg/dL (74-106)
[2017-04-13] MEDS ORDERED: DEXAMETHASONE SOD PHOSPHATE 4 MG/1 ML VIAL ONE (08:59)
[2017-04-13] MEDS ORDERED: KETOROLAC TROMETHAMINE 30 MG/1 ML VIAL ONE (08:59)
[2017-04-13] MEDS ORDERED: NEOSTIGMINE METHYLSULFATE 0.5 MG/ML - 10 ML MDV ONE (08:59)
[2017-04-13] MEDS ORDERED: GLYCOPYRROLATE 0.2 MG/1 ML VIAL ONE (08:59)
--- NOTE | 2017-04-13 09:12 | OP ---
Operative Note - Note: Operative Date: 04/13/17 Pre-Operative Diagnosis: cholelithiasis/choledocholithiasis Operation: lap kathy Findings: see dictation Surgeon: Jermain Brooke Hr Associate: Sheng Ventura Anesthesiologist/OPHTHALMIC SURGICAL ASSISTANT: Adriana Humphrey MD Anesthesia: General Specimens Removed: gallbladder and contents Estimated Blood Loss (mls): 20 Drains & Tubes with Location: none
[2017-04-13 09:13] LABS: ALK PHOS 205 U/L (45-117); BILIRUBIN,TOTAL 1.4 mg/dL (0.2-1.0); C-REACTIVE PROTEIN 2.9 MG/DL (0.00-0.3); CREATININE 0.9 mg/dL (0.55-1.02); SGOT/AST 58 U/L (15-37); SGPT/ALT 91 U/L (12-78)
[2017-04-13] MEDS: HYDROCORTISONE 20 MG TABLET PO SCH (09:13)
[2017-04-13] MEDS: DEXTROSE 5%-0.45% SALINE 1,000 ML IV SCH ×3 (09:13→17:47)
[2017-04-13] MEDS ORDERED: ONDANSETRON 4 MG/2 ML VIAL IVPUSH PRN ×2 (09:32→11:43)
[2017-04-13 09:37] LABS: BASOPHIL (MANUAL) 2 % (0-2.0); PLATELET ESTIMATE ADEQUATE (NORMAL); TOTAL CELLS COUNTED 100
[2017-04-13 09:38] LABS: MYELOCYTE 2 % (0-2)
[2017-04-13] MEDS ORDERED: LACTATED RINGERS SOLUTION 1,000 ML IV SCH ×2 (09:45→11:43)
[2017-04-13] MEDS ORDERED: cefTRIAXone 1 GM/50 ML BAG (PRE-DOCKED) IVPB ONE (09:58)
--- NOTE | 2017-04-13 10:22 | SURG ---
Surgery [facility] Note [facility]: Sheng Ventura PA-C Date of Service: 04/13/17 Diagnosis: cholelithiasis/choledocholithiasis Procedure: Laparoscopic cholecystectomy I was present for the entirety of the operative procedure. For further detail, please refer to operative report. Visit type - Case Type Case Type: ED Admission
[2017-04-13] MEDS: CEFTRIAXONE 1 G/50 ML PREMIX 50 ML IVPB SCH (14:46)
[2017-04-13] MEDS ORDERED: LOSARTAN POTASSIUM 25 MG TABLET PO ONE (15:40)
--- NOTE | 2017-04-13 15:55 | PN ---
Physical Exam: SUBJECTIVE: Patient seen and examined. She is feeling good today. She denies abdominal pain, nausea, vomiting, chest pain. OBJECTIVE: Vital Signs Period Temp Pulse Resp BP Sys/Saleem Pulse Ox Last 24 Hr 97.3 F-98.4 F 60-66 16-20 139-173/67-96 97-100 GENERAL: The patient is awake, alert, and fully oriented, in no acute distress. HEAD: Normal with no signs of trauma. EYES: PERRL, extraocular movements intact, sclera anicteric, conjunctiva clear. No ptosis. ENT: Ears normal, nares patent, oropharynx clear without exudates, moist mucous membranes. NECK: Trachea midline, full range of motion, supple. LUNGS: Breath sounds equal, clear to auscultation bilaterally, no wheezes, no crackles, no accessory muscle use. HEART: Regular rate and rhythm, S1, S2 without murmur, rub or gallop. ABDOMEN: Soft, nontender, distended, three small incisions post laparoscopic surgery, band aid applied, normoactive bowel sounds, no guarding, no rebound EXTREMITIES: 2+ pulses, warm, no edema. NEUROLOGICAL: Normal speech, no facial asymmetry, gait not observed. PSYCH: Normal mood, normal affect. SKIN: Warm, dry, normal turgor. Laboratory Results - last 24 hr 04/13/17 04/13/17 04/13/17 06:00 06:00 06:00 WBC 9.4 RBC 4.27 Hgb 12.1 Hct 36.9 MCV 86.5 MCH 28.3 MCHC 32.7 RDW 15.8 H Plt Count 281 MPV 8.5 Total Counted 100 Neutrophils % No Result Required. Neutrophils % (Manual) 45 Lymphocytes % No Result Required. Lymphocytes % (Manual) 41 H Monocytes % (Manual) 6 Eosinophils % (Manual) 4 Basophils % (Manual) 2 Myelocytes % (Man) 2 Platelet Estimate Adequate PT with INR 12.40 H INR 1.10 Sodium 146 H Potassium 3.7 Chloride 112 H Carbon Dioxide 27 Anion Gap 7 L BUN 9 Creatinine 0.9 Creat Clearance w eGFR > 60 Random Glucose 75 Calcium 7.9 L Total Bilirubin 1.4 H D AST 58 H D ALT 91 H Alkaline Phosphatase 205 H C-Reactive Protein 2.9 H D Total Protein 7.0 Albumin 3.1 L Total Amylase 64 D Lipase 612 H Active Medications Generic Name Dose Route Start Last Admin Trade Name Mauro PRN Reason Stop Dose Admin Fentanyl 50 mcg 04/13/17 11:43 Sublimaze Injection - IVPUSH 04/16/17 09:33 [id number] PRN PAIN Heparin Sodium (Porcine) 5,000 unit 04/13/17 14:00 Heparin - SQ TID TANG Hydrocortisone 5 mg 04/13/17 18:00 Cortef - PO DAILY@1800 TANG Hydrocortisone 20 mg 04/14/17 08:00 Cortef - PO DAILY@0800 TANG Dextrose/Sodium Chloride 1,000 mls @ 75 mls/hr 04/13/17 11:43 04/13/17 15:39 D5-1/2ns - IV Not Given ASDIR TANG Lactated Ringer's 1,000 mls @ 75 mls/hr 04/13/17 11:43 04/13/17 15:40 Lactated Ringers Solution IV Not Given ASDIR TANG Phenobarbital 30 mg 04/13/17 16:15 Phenobarbital - PO Q8H [facility] ASSESSMENT/PLAN: 66yo F with HTN, DM, CKD, CAD, seizure disorder, hypothryroidism, panhypopitutitarism, 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 sepsis due to UTI or hepatobiliary source like cholangitis the pt had laparoscopic cholecystectomy today continue fluids that were started by surgery will f/u recommendation will continue fentanyl for post op pain no fever in 24 hrs WBC count trending down Acute cholecystitis/cholangitis US: positive for gallstones and no biliary duct dilatation, followed by HIDA that showed obstructive pattern we consulted GI, pt had ERCP and two stones were removed, stent placed will follow recommendations elevated troponin likely related to demand ischemia 2/2 sepsis mormalized Hypernatremia on admission 147 -continue IVF [id number] on CKD continue IVF, Cr today is 0.9 avoid nephrotoxic substances hypothyroidism continue Synthroid AMS possibly due to sepsis reported by her cousin but the pt is oriented in the hospital h/o of arroyo hypopituitarism -continue Hydrocortisone 5 and 20 mg h/o seizure disorder no seizure activity in the hospital cont Phenobarbital h/o brain tumor hold bromocriptine FEN LR at 75 ml/hr/nl/npo Ppx SCDs / Heparin SQ TID no GI ppx indicated at this time Disposition: continue med surg, f/u surgery recommendation Problem List - Problems (1) Change in mental status Code(s): R41.82 - ALTERED MENTAL STATUS, UNSPECIFIED (2) Cholelithiases Code(s): K80.20 - CALCULUS OF GALLBLADDER W/O CHOLECYSTITIS W/O OBSTRUCTION (3) Cholelithiasis and cholecystitis with obstruction Code(s): K80.19 - CALCULUS OF GALLBLADDER W OTH CHOLECYSTITIS WITH OBSTRUCTION Qualifiers: Cholelithiasis location: gallbladder and bile duct Cholecystitis acuity : acute Qualified Code(s): K80.63 - Calculus of gallbladder and bile duct with acute cholecystitis with obstruction; K80.63 - Calculus of gallbladder and bile duct with acute cholecystitis with obstruction (4) Elevated LFTs Code(s): R79.89 - OTHER SPECIFIED ABNORMAL FINDINGS OF BLOOD CHEMISTRY (5) UTI (urinary tract infection) Code(s): N39.0 - URINARY TRACT INFECTION, SITE NOT SPECIFIED Visit type - Emergency Visit Emergency Visit: Yes ED Registration Date: 04/07/17 Care time: The patient presented to the Emergency Department on the above date and was hospitalized for further evaluation of their emergent condition. - New Patient This patient is new to me today: No - Critical Care Critical Care patient: No
[2017-04-13] MEDS ORDERED: PHENobarbital 30 MG TABLET PO SCH (16:15)
[2017-04-13] MEDS ORDERED: PT OWN MED DRAWER 7, Y5N ONE (17:13)
[2017-04-13] MEDS ORDERED: HYDROCORTISONE 10 MG TABLET PO SCH (18:00)
--- NOTE | 2017-04-13 18:08 | PN ---
Teaching Attending Note Name of Resident: Chichi Cole ATTENDING PHYSICIAN STATEMENT I saw and evaluated the patient. I reviewed the resident's note and discussed the case with the resident. I agree with the resident's findings and plan as documented. SUBJECTIVE: no pain s/p lap kathy OBJECTIVE: Vital Signs Temperature 97.3 F L 04/13/17 15:48 Pulse Rate 66 04/13/17 15:48 Respiratory Rate 18 04/13/17 15:48 Blood Pressure 159/67 04/13/17 15:48 O2 Sat by Pulse Oximetry (%) 97 04/13/17 12:00 yes: Yes: WNL, Conjunctiva Clear, EOM Intact HENT: Yes: WNL, Atraumatic, Normocephalic Neck: Yes: WNL, Supple, Trachea Midline Cardiovascular: Yes: WNL, Regular Rate and Rhythm Respiratory: Yes: WNL, Regular, CTA Bilaterally Gastrointestinal: Yes: WNL, Normal Bowel Sounds, Soft, Abdomen, Obese ...Rectal Exam: Yes: Deferred CBC, BMP 04/13/17 06:00 04/13/17 06:00 CMP Sodium 146 mmol/L (136-145) H 04/13/17 06:00 Potassium 3.7 mmol/L (3.5-5.1) 04/13/17 06:00 Chloride 112 mmol/L (98-107) H 04/13/17 06:00 Carbon Dioxide 27 mmol/L (21-32) 04/13/17 06:00 Anion Gap 7 (8-16) L 04/13/17 06:00 BUN 9 mg/dL (7-18) 04/13/17 06:00 Creatinine 0.9 mg/dL (0.55-1.02) 04/13/17 06:00 Creat Clearance w eGFR > 60 (>60) 04/13/17 06:00 POC Glucometer 81 UNITS (()) 04/07/17 18:56 Random Glucose 75 mg/dL (74-106) 04/13/17 06:00 Hemoglobin A1c % 5.1 % (4.8-6.0) 04/08/17 08:10 Lactic Acid 1.6 mmol/L (0.4-2.0) 04/07/17 02:10 Calcium 7.9 mg/dL (8.5-10.1) L 04/13/17 06:00 Phosphorus 3.1 mg/dL (2.5-4.9) 04/09/17 09:25 Magnesium 2.4 mg/dL (1.8-2.4) 04/07/17 06:10 Total Bilirubin 1.4 mg/dL (0.2-1.0) H D 04/13/17 06:00 Direct Bilirubin 2.2 mg/dL (0.0-0.2) H D 04/11/17 07:00 AST 58 U/L (15-37) H D 04/13/17 06:00 ALT 91 U/L (12-78) H 04/13/17 06:00 Alkaline Phosphatase 205 U/L (45-117) H 04/13/17 06:00 Ammonia 26.98 umol/L (11-32) 04/07/17 06:10 Creatine Kinase 271 IU/L (26-192) H 04/07/17 11:56 Creatine Kinase Index 0.3 % (0.0-5.0) 04/07/17 11:56 CK-MB (CK-2) < 1.000 ng/mL (0.5-3.6) 04/07/17 11:56 Troponin I 0.04 ng/ml (0.00-0.05) 04/07/17 11:56 C-Reactive Protein 2.9 MG/DL (0.00-0.3) H D 04/13/17 06:00 Total Protein 7.0 g/dl (6.4-8.2) 04/13/17 06:00 Albumin 3.1 g/dl (3.4-5.0) L 04/13/17 06:00 Triglycerides 167 mg/dL (35-160) H 04/08/17 05:35 Cholesterol 137 mg/dL (50-200) 04/08/17 05:35 Total LDL Cholesterol 82 mg/dL (5-100) 04/08/17 05:35 HDL Cholesterol 21 mg/dL (40-60) L 04/08/17 05:35 Total Amylase 64 U/L (25-115) D 04/13/17 06:00 Lipase 612 U/L (73-393) H 04/13/17 06:00 ASSESSMENT AND PLAN: Acute cholecystitis/cholangitis- secondary to choledocholithiasis- s/p ERCP , stone extraction and biliary stent placement. S/p cholecystectomy today . - pain control -IVF -diet in AM -LFT in am ARF - resolved AMS possibly due to sepsis, now resolved back to her baseline as per family
[2017-04-14 05:22] VITALS: PULSE 60
[2017-04-14] MEDS: HEPARIN NA (PORCINE) 5,000 UNITS/ML 1ML VIAL SQ SCH ×2 (05:53→14:14)
[2017-04-14] MEDS: PHENobarbital 30 MG TABLET PO SCH ×2 (05:53→14:14)
[2017-04-14] MEDS ORDERED: HYDROCORTISONE 20 MG TABLET PO SCH (08:00)
[2017-04-14 08:42] LABS: MCH 28.9 pg (25.7-33.7); MCHC 33.8 g/dl (32.0-36.0); MEAN CELL VOLUME 85.5 fl (80-96); MEAN PLT VOLUME 8.4 fl (7.5-11.1); PLATELET COUNT 337 K/MM3 (134-434); RDW 15.7 % (11.6-15.6); WHITE BLOOD COUNT 12.2 K/mm3 (4.0-10.0)
[2017-04-14] MEDS ORDERED: PT OWN MED DRAWER 7, Y5N ONE (08:52)
[2017-04-14 09:09] LABS: ALBUMIN 3.4 g/dl (3.4-5.0); ALK PHOS 229 U/L (45-117); ANION GAP 6 (8-16); BILIRUBIN,TOTAL 1.4 mg/dL (0.2-1.0); CALCIUM 8.2 mg/dL (8.5-10.1); CO2 32 mmol/L (21-32); GLUCOSE,RANDOM 72 mg/dL (74-106); SGOT/AST 58 U/L (15-37); SGPT/ALT 91 U/L (12-78); TOT PROT 7.2 g/dl (6.4-8.2)
--- NOTE | 2017-04-14 09:17 | PN ---
Progress Note, Physician History of Present Illness: No events. Ambulating. Pain, or discomfort free - Current Medication List Current Medications: Active Medications Heparin Sodium (Porcine) (Heparin -) 5,000 unit SQ TID [facility] Last Admin: 04/14/17 05:53 Dose: 5,000 unit Hydrocortisone (Cortef -) 20 mg PO DAILY@0800 TANG Last Admin: 04/14/17 09:02 Dose: 20 mg Hydrocortisone (Cortef -) 5 mg PO DAILY@1800 TANG Dextrose/Sodium Chloride (D5-1/2ns -) 1,000 mls @ 75 mls/hr IV ASDIR [facility] Last Admin: 04/13/17 17:47 Dose: 75 mls/hr Lactated Ringer's (Lactated Ringers Solution) 1,000 mls @ 75 mls/hr IV ASDIR [facility] Last Admin: 04/13/17 15:40 Dose: Not Given Phenobarbital (Phenobarbital -) 30 mg PO TID [facility] Last Admin: 04/14/17 05:53 Dose: 30 mg - Objective Vital Signs: Vital Signs Temperature 98.3 F 04/14/17 05:21 Pulse Rate 60 04/14/17 05:21 Respiratory Rate 18 04/14/17 05:21 Blood Pressure 155/88 04/14/17 05:21 O2 Sat by Pulse Oximetry (%) 97 04/13/17 21:00 Vital Signs - 24 hr 04/13/17 04/13/17 04/13/17 09:13 09:30 09:45 Temperature 98.4 F Pulse Rate 60 60 60 Respiratory 16 16 16 Rate Blood Pressure 157/81 169/94 173/90 O2 Sat by Pulse 100 99 99 Oximetry (%) 04/13/17 04/13/17 04/13/17 10:00 10:15 10:30 Temperature Pulse Rate 60 60 62 Respiratory 16 16 16 Rate Blood Pressure 169/91 160/93 157/80 O2 Sat by Pulse 99 99 99 Oximetry (%) 04/13/17 04/13/17 04/13/17 10:45 11:00 11:15 Temperature 98.1 F Pulse Rate 62 64 62 Respiratory 16 16 16 Rate Blood Pressure 160/70 159/90 160/90 O2 Sat by Pulse 99 99 Oximetry (%) 04/13/17 04/13/17 04/13/17 12:00 15:48 17:15 Temperature 97.8 F 97.3 F L 97.6 F Pulse Rate 60 66 60 Respiratory 18 18 20 Rate Blood Pressure 164/96 159/67 162/91 O2 Sat by Pulse 97 Oximetry (%) 04/13/17 04/13/17 04/14/17 21:00 22:28 05:21 Temperature 99.2 F 98.3 F Pulse Rate 61 60 Respiratory 18 18 Rate Blood Pressure 142/72 155/88 O2 Sat by Pulse 97 Oximetry (%) Constitutional: Yes: No Distress, Calm Eyes: Yes: Conjunctiva Clear HENT: Yes: Atraumatic Neck: Yes: Supple Cardiovascular: Yes: Regular Rate and Rhythm Respiratory: Yes: Regular Gastrointestinal: Yes: Normal Bowel Sounds, Soft. No: Melena, Tenderness, Vomiting Labs: CBC, BMP 04/14/17 08:00 INR, PTT INR 1.10 (0.82-1.09) 04/13/17 06:00 Hepatic Panel Total Bilirubin 1.4 mg/dL (0.2-1.0) H D 04/13/17 06:00 Direct Bilirubin 2.2 mg/dL (0.0-0.2) H D 04/11/17 07:00 AST 58 U/L (15-37) H D 04/13/17 06:00 ALT 91 U/L (12-78) H 04/13/17 06:00 Alkaline Phosphatase 205 U/L (45-117) H 04/13/17 06:00 Albumin 3.1 g/dl (3.4-5.0) L 04/13/17 06:00 Problem List - Problems (1) Cholangitis due to bile duct calculus with obstruction Assessment/Plan: S/p uneventful ERCP and cholesystectomy Asymptomatic Recommend advancing diet am hepatic panel Code(s): K80.31 - CALCULUS OF BILE DUCT W CHOLANGITIS, UNSP, WITH OBSTRUCTION (2) Cholelithiasis and cholecystitis with obstruction Code(s): K80.19 - CALCULUS OF GALLBLADDER W OTH CHOLECYSTITIS WITH OBSTRUCTION Qualifiers: Cholelithiasis location: gallbladder and bile duct Cholecystitis acuity : acute Qualified Code(s): K80.63 - Calculus of gallbladder and bile duct with acute cholecystitis with obstruction; K80.63 - Calculus of gallbladder and bile duct with acute cholecystitis with obstruction
--- NOTE | 2017-04-14 09:21 | PN ---
Progress Note (short form) - Note Progress Note: Attending Surgeon POD #1 No c/o; tolerated diet; voiding; no pain; ambulating VSS AF abdomen-soft/flat and non tender; port site dressings c/d/i IMP: doing well s/p lap kathy for cholelithiasis and choledocholithiasis s/p ERCP and related procedures. PLAN: Advance diet; surgically stable for d/c to office f/u 7- 10 days and w/GI f/u as previously noted. Jermain Brooke MD FACS
--- NOTE | 2017-04-14 10:44 | PN ---
Progress Note (short form) - Note Progress Note: Anesthesia postop note 66 y/o F s/p GA for Lap Sharda POD#1 vss, aaox3, no complaints No anesthesia complications
[2017-04-14 11:17] VITALS: BP 155/81; TEMP 98.2
[2017-04-14] MEDS: DEXTROSE 5%-0.45% SALINE 1,000 ML IV SCH (14:02)
--- NOTE | 2017-04-14 14:44 | PN ---
Teaching Attending Note Name of Resident: Chichi Cole ATTENDING PHYSICIAN STATEMENT I saw and evaluated the patient. I reviewed the resident's note and discussed the case with the resident. I agree with the resident's findings and plan as documented. SUBJECTIVE: Patient has no complaints. OBJECTIVE: Vital Signs Period Temp Pulse Resp BP Sys/Saleem Pulse Ox Last 24 Hr 97.3 F-99.2 F 60-66 18-20 142-162/67-91 97-98 HEART: S1S2, RRR LUNGS: Clear ABDOMEN: Obese, soft, non-tender, non-distended, normal BS EXTREMITIES: No edema ASSESSMENT AND PLAN: 1. Sepsis secondary to acute cholecystitis with choledocholithiasis - s/p ERCP with stent placement 04/10 - s/p lap kathy 04/13 2. Acute metabolic encephalopathy secondary to sepsis - Resolved 3. Hypernatremia - Resolved 4. Hypopituitarism/hypothyroidism - Continue Synthroid, Cortisone 5. Seizure disorder - Continue Phenobarbital 6. HTN - Continue Lasix 7. Hyperlipidemia - Continue Lipitor 8. History of craniotomy for benign brain tumor 9. Discharge home with surgery and GI follow-up
--- NOTE | 2017-04-14 15:59 | DS ---
Physical Exam: SUBJECTIVE: Patient seen and examined. She doesn't have any complaints today. She denies abdominal pain, tolerated diet well. No overnight events. OBJECTIVE: Vital Signs Period Temp Pulse Resp BP Sys/Saleem Pulse Ox Last 24 Hr 97.3 F-99.2 F 60-66 18-20 142-162/67-91 97-98 PHYSICAL EXAM GENERAL: The patient is awake, alert, and fully oriented, in no acute distress. HEAD: Normal with no signs of trauma. EYES: PERRL, extraocular movements intact, sclera anicteric, conjunctiva clear. ENT: Ears normal, nares patent, oropharynx clear without exudates, moist mucous membranes. NECK: Trachea midline, full range of motion, supple. LUNGS: Breath sounds equal, clear to auscultation bilaterally, no wheezes, no crackles, no accessory muscle use. HEART: Regular rate and rhythm, S1, S2 without murmur, rub or gallop. ABDOMEN: Obese, soft, nontender, nondistended, normoactive bowel sounds, no guarding, no rebound, small incisions s/p laparoscopic cholecystectomy, no skin redness, drainage. EXTREMITIES: 2+ pulses, warm, well-perfused, no edema. NEUROLOGICAL: Normal speech, no facial asymmetry, gait not observed. PSYCH: Normal mood, normal affect. SKIN: Warm, dry, normal turgor. LABS Laboratory Results - last 24 hr 04/14/17 04/14/17 08:00 08:00 WBC 12.2 H RBC 4.39 Hgb 12.7 Hct 37.5 MCV 85.5 MCH 28.9 MCHC 33.8 RDW 15.7 H Plt Count 337 MPV 8.4 Sodium 145 Potassium 3.7 Chloride 107 Carbon Dioxide 32 Anion Gap 6 L BUN 8 Creatinine 1.0 Creat Clearance w eGFR 55.14 Random Glucose 72 L Calcium 8.2 L Total Bilirubin 1.4 H AST 58 H ALT 91 H Alkaline Phosphatase 229 H Total Protein 7.2 Albumin 3.4 HOSPITAL COURSE: Date of Admission:04/07/17 Date of Discharge: 04/14/17 Minutes to complete discharge: 35 Discharge Summary Reason For Visit: UTI CHANGE IN MENTAL STATUS ELEVTED LFT Hospital Course: 66yo F with PMH of craniotomy, seizures, presents with AMS according to her cousin. She also had one episode of vomiting reported before coming to the hospital. Pt has a hx of seizure disorder, although has been seizure-free. In the ED, pt was noted to be AAOx3, to have a mild leukocytosis, to be febrile to 101, and to have elevated LFTs. Patient usually able to recall all meds and dose currently unsure. Hospital course: The pt was admitted for AMS, transaminitis and sepsis due to UTI. The pt had CXR that was nl, CT head-no acute pathology, US abdomen revealed multiple stones in gallbladder and fatty liver. We ordered HIDA scan that showed obstructive pattern. The pt had ERCP performed by Dr. Reyes who removed two stones and inserted stent. He recommended surgery and ERCP in 3 months. The pt had uncomplicated laparoscopic cholecystectomy. She clinically improved. On day 2 post op she was disc harged home to /[facility] surgery, GI and primary care physician. The pt electrolyte abnormalities resolved, her AMS was related to sepsis and that resolved. During the hospitalization she finished full antibiotic course for UTI. She was treated with IV Flagyl and Ceftriaxone. We resumed her home medications that she was taking before coming to the hospital. Condition: Good - Instructions Diet, Activity, Other Instructions: Please see your primary care physician in a week. Visit a surgeon in a week and GI specialist in 2 weeks. You were treated with antibiotics but you finished the full course of treatment. If you have abdominal pain, diarrhea, bleeding, chest pain, shortness of breath please go to emergency room as soon as possible. We didn't change your medications in the hospital, please continue taking what you were taking before coming to the hospital. Referrals: Jermain Brooke MD [Staff Physician] - 1 Week William Mcconnell MD [Primary Care Provider] - 1 Week Jhonny Crabtree MD [Staff Physician] - 2 Weeks Disposition: HOME - Home Medications Comprehensive Discharge Medication List: Ambulatory Orders Cortisone Acetate [Cortisone -] 25 mg PO DAILY #0 tablet 10/16/12 Atorvastatin Ca [Lipitor] 10 mg PO HS 04/07/17 Cholecalciferol (Vitamin D3) [Vitamin D3 -] 1,000 iu PO DAILY 04/07/17 Furosemide [Lasix -] 40 mg PO DAILY 04/07/17 Levothyroxine [Synthroid -] 175 mcg PO DAILY 04/07/17 Phenobarbital - 30 mg PO TID 04/07/17 Potassium Chloride [K-Dur -] 10 meq PO DAILY 04/07/17 Problem List - Problems (1) Change in mental status Code(s): R41.82 - ALTERED MENTAL STATUS, UNSPECIFIED (2) Cholelithiases Code(s): K80.20 - CALCULUS OF GALLBLADDER W/O CHOLECYSTITIS W/O OBSTRUCTION (3) Cholelithiasis and cholecystitis with obstruction Code(s): K80.19 - CALCULUS OF GALLBLADDER W OTH CHOLECYSTITIS WITH OBSTRUCTION Qualifiers: Cholelithiasis location: gallbladder and bile duct Cholecystitis acuity : acute Qualified Code(s): K80.63 - Calculus of gallbladder and bile duct with acute cholecystitis with obstruction; K80.63 - Calculus of gallbladder and bile duct with acute cholecystitis with obstruction (4) Elevated LFTs Code(s): R79.89 - OTHER SPECIFIED ABNORMAL FINDINGS OF BLOOD CHEMISTRY (5) UTI (urinary tract infection) Code(s): N39.0 - URINARY TRACT INFECTION, SITE NOT SPECIFIED This patient is new to me today: No Emergency Visit: Yes ED Registration Date: 04/07/17 Care time: The patient presented to the Emergency Department on the above date and was hospitalized for further evaluation of their emergent condition. Critical Care patient: No - Discharge Referral Referred to [facility] Med [facility] No
[2017-04-14] MEDS ORDERED: HYDROCORTISONE 5 MG TABLET PO SCH (18:00)
--- NOTE | 2017-04-14 18:10 | OP ---
DATE OF OPERATION: 04/13/2017 PREOPERATIVE DIAGNOSIS: Cholelithiasis and choledocholithiasis. POSTOPERATIVE DIAGNOSIS: Cholelithiasis and choledocholithiasis. PROCEDURE: Laparoscopic cholecystectomy. SURGEON: Jermain Brooke M.D. LIBRARY MANAGER: Sheng Ventura PA-C ANESTHESIA: General. OPERATIVE FINDINGS: There was normal anatomy in the triangle of Calot. There were multiple stones within the gallbladder. There were no signs of acute inflammation. The rest of the findings were unremarkable. PROCEDURE: The patient was placed on operating table in supine position, and after the induction of general anesthesia, the patient's abdomen was prepped with Chloraprep and draped in sterile fashion. Pneumoperitoneum was established above the umbilicus using a Veress needle to an intraabdominal pressure of 15 mmHg. A 5- mm port was placed above the umbilicus and laparoscopy carried out. The previously noted findings were observed. Additional lateral 5-mm ports in the subxiphoid, 12-mm port were placed. Gallbladder was placed on cephalad and lateral retraction, and dissection begun in the triangle ofd Calot. The peritoneum over the neck of the gallbladder was opened medially and laterally using electrocautery. The cystic duct was identified, crossing from the neck of the gallbladder distally to the common bile duct . It was dissected proximally and distally for length. The artery was similarly identified and dissected proximally and distally for length, and then critical view of safety was taken . The duct and artery were serially divided using Endoshears after placement of 10-mm clips proximally and distally. Two clips were placed proximally and distally. Hemostasis was checked and noted to be good, and then the gallbladder was removed from the liver bed in the retrograde fashion using electrocautery. Prior to removal from the edge of the liver, hemostasis was again verified. The gallbladder was then placed in a specimen retrieval bag and brought out through the epigastric port. Pneumoperitoneum was reestablished. Irrigation was carried out until the return was clear and hemostasis again verified. All ports were then removed under laparoscopic vision without evidence of bleeding from the port sites, and all port sites were infiltrated with 0.5% Marcaine. The skin edges at each port site were closed with 4-0 Vicryl in a subcuticular continuous fashion, Steri-Strips and band-aid dressings were placed, and the procedure terminated at this point. The patient was aroused from general anesthesia and transferred to the postanesthesia care unit in stable condition, awake and alert. Estimated blood loss 20 mL. Replacements crystalloid. Drains none. Specimen: gallbladder and contents to pathology. I, Jermain Brooke, was physically present in the operating room from the time the patient was placed on the operating room table until she was transferred to the post anesthesia care unit under my accompaniment. MD PIPPA Lugo/[id number] MTDD
--- NOTE | 2017-04-15 17:13 | PATH ---
Surgical Pathology Report Patient Name: IGOR DAMIAN Med. Rec. #: [id number] /Age/Gender: 1950 (Age: 66) / F Account: [id number] Location: [facility] MED/SURG Taken: 04/13/2017 Received: 04/13/2017 Reported: 04/15/2017 Physicians: MD Belle Merchant M.D. Specimen(s) Received GALLBLADDER Clinical History Cholelithiasis, choledocholithiasis Final Diagnosis GALLBLADDER, LAPAROSCOPIC CHOLECYSTECTOMY: ACUTE AND CHRONIC CHOLECYSTITIS AND CHOLELITHIASIS. ONE BENIGN PERIDUCTAL LYMPH NODE (0/1). Electronically Signed Mraie Haque M.D. Gross Description Received in formalin, labeled "gallbladder," is a 6.4 x 2.2 x 2.0 cm. gallbladder with a 0.2 cm. in length portion of cystic duct attached. There is a 0.7 cm in greatest dimension pink-crain periductal lymph node present. The outer surface is crain-pink and varies from smooth to shaggy. The lumen contains green, tenacious bile as well as multiple yellow, irregular to fragmented choleliths ranging from 0.1-1.8 cm in greatest dimension. The mucosa is green and focally eroded. The wall of the gallbladder measures 0.1 cm. in thickness. Data Analysis Assistant sections are submitted in one cassette. /04/13/2017 saudi/04/13/2017
== END 2017-04-14 14:31 | disposition home or self-care (01) | DRG 853 ==
LOC: JER 00:20 → JERBED 04:10 → J8W 07:46
PROVIDERS: ADMIT Internal Medicine; ATTEND Internal Medicine
PROC: 0FC98ZZ Extirpation of Matter from Common Bile Duct, Via Natural or Artificial Opening Endoscopic (ICD-10-PCS; 2017-04-10)
PROC: 0F798DZ Dilation of Common Bile Duct with Intraluminal Device, Via Natural or Artificial Opening Endoscopic (ICD-10-PCS; 2017-04-10)
PROC: 0FT44ZZ Resection of Gallbladder, Percutaneous Endoscopic Approach (ICD-10-PCS; principal; 2017-04-13 08:00)
DX: A41.9 Sepsis, unspecified organism (principal); G93.41 Metabolic encephalopathy; E23.0 Hypopituitarism; G40.89 Other seizures; I24.8 Other forms of acute ischemic heart disease; N17.9 Acute kidney failure, unspecified; E87.0 Hyperosmolality and hypernatremia; N39.0 Urinary tract infection, site not specified; G40.802 Other epilepsy, not intractable, without status epilepticus; K80.43 Calculus of bile duct with acute cholecystitis with obstruction; R17 Unspecified jaundice; E03.9 Hypothyroidism, unspecified; R74.0 Nonspecific elevation of levels of transaminase and lactic acid dehydrogenase [LDH]; D72.828 Other elevated white blood cell count; E86.0 Dehydration; I12.9 Hypertensive chronic kidney disease with stage 1 through stage 4 chronic kidney disease, or unspecified chronic kidney disease; N18.9 Chronic kidney disease, unspecified; R79.89 Other specified abnormal findings of blood chemistry; N39.498 Other specified urinary incontinence; E78.5 Hyperlipidemia, unspecified; E87.6 Hypokalemia; E66.8 Other obesity; Z95.0 Presence of cardiac pacemaker; Z85.841 Personal history of malignant neoplasm of brain; Z68.36 Body mass index [BMI] 36.0-36.9, adult
CPT/HCPCS: 36415; 70450-TC; 71010-TC; 76000-TC; 76705-TC; 78226-TC; 80048; 80053; 80061; 80074; 80076; 80307; 81003; 81015; 82140; 82150; 82248; 82550; 82553; 83036; 83516; 83605; 83690; 83721; 83735; 84100; 84484; 85025; 85027; 85610; 85730; 86140; 86704; 86706; 86708; 86803; 86850; 86900; 86901; 87040; 87086; 87340; 88304-TC; 93005; 93010; 94760; 97116-GP; 97161-GP; 99285-25; A9537; J1644

== ENCOUNTER 2023-03-02 10:15 | Inpatient (IN) | payer OTHER ==
[2023-03-02 10:39] VITALS: BMI 32.3
[2023-03-02 11:40] LABS: BASO % 0.7 % (0-2.0); EOS % 2.2 % (0-4.5); HEMATOCRIT 39.8 % (32.4-45.2); HEMOGLOBIN 12.8 GM/dL (10.7-15.3); LYMPH % 41.2 % (8-40); MCH 28.1 pg (25.7-33.7); MCHC 32.2 g/dl (32.0-36.0); MEAN CELL VOLUME 87.4 fl (80-96); MEAN PLT VOLUME 10.7 fl (7.5-11.1); MONO % 9.7 % (3.8-10.2); NEUT % 46.2 % (42.8-82.8); PLATELET COUNT 200 10^3/uL (134-434); RBC 4.56 M/mm3 (3.60-5.2); RDW 15.1 % (11.6-15.6); WHITE BLOOD COUNT 7.2 K/mm3 (4.0-10.0)
[2023-03-02 11:51] LABS: POTASSIUM 3.4 mmol/L (3.5-5.1)
[2023-03-02 11:53] LABS: CALCIUM 8.2 mg/dL (8.5-10.1); MAGNESIUM 2.6 mg/dL (1.8-2.4)
[2023-03-02 11:56] LABS: CREATININE 1.7 mg/dL (0.55-1.3)
[2023-03-02 11:58] LABS: BILIRUBIN,TOTAL 0.6 mg/dL (0.2-1); TOT PROT 6.6 g/dl (6.4-8.2)
[2023-03-02] MEDS ORDERED: SODIUM CHLORIDE 0.45% 1,000 ML IV SCH (12:45)
[2023-03-02] MEDS ORDERED: ACETAMINOPHEN 325 MG TABLET (FP) PO PRN (17:45)
[2023-03-02] MEDS: POTASSIUM CHLORIDE 10 MEQ in DEXTROSE 5%-WATER - 1,000 ML IV SCH (18:22)
[2023-03-02] MEDS ORDERED: PHENobarbital 30 MG TABLET ONE (21:38)
[2023-03-02] MEDS ORDERED: ATORVASTATIN CA 40 MG TABLET (FP) ONE (21:38)
[2023-03-02] MEDS: ATORVASTATIN CA 40 MG TABLET (FP) PO SCH (21:39)
[2023-03-02] MEDS: PHENobarbital 30 MG TABLET PO SCH (21:39)
[2023-03-03] MEDS: LEVOTHYROXINE 100 MCG, LEVOTHYROXINE 75 MCG PO SCH ×2 (06:00→10:06)
[2023-03-03] MEDS ORDERED: LEVOTHYROXINE NA 125 MCG TABLET (FP) PO SCH (07:00)
[2023-03-03] MEDS: POTASSIUM CHLORIDE 10 MEQ in DEXTROSE 5%-WATER - 1,000 ML IV SCH (08:58)
[2023-03-03] MEDS ORDERED: PHENobarbital 30 MG TABLET ONE (09:49)
[2023-03-03 09:51] LABS: URINE APPEARANCE CLEAR; URINE BILIRUBIN NEGATIVE (NEGATIVE); URINE COLOR YELLOW; URINE GLUCOSE (UA) NEGATIVE (NEGATIVE); URINE KETONE NEGATIVE (NEGATIVE); URINE LEUK ESTERASE NEGATIVE (NEGATIVE); URINE NITRITE NEGATIVE (NEGATIVE); URINE PROTEIN NEGATIVE (NEGATIVE)
[2023-03-03] MEDS ORDERED: CORTISONE ACETATE 25 MG TABLET PO SCH ×2 (10:00)
[2023-03-03] MEDS ORDERED: FUROSEMIDE 40 MG TABLET (FP) PO SCH (10:00)
[2023-03-03] MEDS: PHENobarbital 30 MG TABLET PO SCH ×2 (10:06→22:07)
[2023-03-03] MEDS: PANTOPRAZOLE 40 MG TABLET PO SCH (10:06)
[2023-03-03 11:10] LABS: HEMATOCRIT 38.7 % (32.4-45.2); HEMOGLOBIN 12.5 GM/dL (10.7-15.3); MCH 28.2 pg (25.7-33.7); MCHC 32.3 g/dl (32.0-36.0); MEAN CELL VOLUME 87.3 fl (80-96); MEAN PLT VOLUME 10.4 fl (7.5-11.1); PLATELET COUNT 201 10^3/uL (134-434); RBC 4.43 M/mm3 (3.60-5.2); WHITE BLOOD COUNT 7.5 K/mm3 (4.0-10.0)
[2023-03-03 11:31] LABS: POTASSIUM 3.4 mmol/L (3.5-5.1)
[2023-03-03 11:38] LABS: ALBUMIN 2.8 g/dl (3.4-5.0); CALCIUM 7.9 mg/dL (8.5-10.1)
[2023-03-03 11:39] LABS: BLOOD UREA NITROGEN 8.8 mg/dL (7-18)
[2023-03-03 11:42] LABS: CREATININE 1.4 mg/dL (0.55-1.3)
[2023-03-03 11:43] LABS: BILIRUBIN,TOTAL 0.8 mg/dL (0.2-1); TOT PROT 6.2 g/dl (6.4-8.2)
[2023-03-03] MEDS ORDERED: HYDROCORTISONE 20 MG TABLET PO SCH (11:45)
[2023-03-03] MEDS ORDERED: HYDROCORTISONE 20 MG, HYDROCORTISONE 5 MG PO SCH (13:30)
[2023-03-03] MEDS: D5-1/2NS+20 MEQ KCL - 20 MEQ/1,000 ML INFUS.BAG IV SCH (15:26)
[2023-03-03] MEDS: KCL 10 MEQ IVPB 10 MEQ/100 ML INFUS.BAG IVPB SCH ×2 (16:41→18:47)
[2023-03-03] MEDS: ATORVASTATIN CA 40 MG TABLET (FP) PO SCH (22:07)
[2023-03-03] MEDS: HYDROCORTISONE SOD SUCCINATE 100 MG/2 ML VIAL IVPB SCH (22:15)
[2023-03-04] MEDS: KCL 10 MEQ IVPB 10 MEQ/100 ML INFUS.BAG IVPB SCH (01:42)
[2023-03-04] MEDS ORDERED: LEVOTHYROXINE NA 75 MCG TABLET (FP) ONE (06:08)
[2023-03-04] MEDS: LEVOTHYROXINE 100 MCG, LEVOTHYROXINE 75 MCG PO SCH (06:13)
[2023-03-04] MEDS: HYDROCORTISONE SOD SUCCINATE 100 MG/2 ML VIAL IVPB SCH ×2 (06:58→14:32)
[2023-03-04] MEDS: PANTOPRAZOLE 40 MG TABLET PO SCH (10:35)
[2023-03-04] MEDS: PHENobarbital 30 MG TABLET PO SCH ×3 (11:31→23:04)
[2023-03-04] MEDS: D5-1/2NS+20 MEQ KCL - 20 MEQ/1,000 ML INFUS.BAG IV SCH (14:50)
[2023-03-04] MEDS: COLLAGENASE CLOSTRIDIUM HIST. 30 GRAMS TUBE TP SCH (17:00)
[2023-03-04] MEDS ORDERED: HYDROCORTISONE 20 MG TABLET PO ONE (20:56)
[2023-03-04] MEDS ORDERED: HYDROCORTISONE 20 MG, HYDROCORTISONE 5 MG PO ONE (21:30)
[2023-03-04] MEDS: ATORVASTATIN CA 40 MG TABLET (FP) PO SCH (23:04)
[2023-03-05] MEDS: HYDROCORTISONE SOD SUCCINATE 100 MG/2 ML VIAL IVPB SCH (01:50)
[2023-03-05] MEDS: LEVOTHYROXINE 100 MCG, LEVOTHYROXINE 75 MCG PO SCH (06:20)
[2023-03-05] MEDS: PANTOPRAZOLE 40 MG TABLET PO SCH (11:11)
[2023-03-05] MEDS: PHENobarbital 30 MG TABLET PO SCH ×3 (11:18→21:50)
[2023-03-05] MEDS: COLLAGENASE CLOSTRIDIUM HIST. 30 GRAMS TUBE TP SCH (12:20)
[2023-03-05] MEDS: D5-1/2NS+20 MEQ KCL - 20 MEQ/1,000 ML INFUS.BAG IV SCH (15:35)
[2023-03-05 16:32] LABS: POTASSIUM 3.3 mmol/L (3.5-5.1)
[2023-03-05 16:34] LABS: BLOOD UREA NITROGEN 10.2 mg/dL (7-18); CALCIUM 8.4 mg/dL (8.5-10.1)
[2023-03-05 16:37] LABS: CREATININE 1.2 mg/dL (0.55-1.3)
[2023-03-05] MEDS: AMINO ACIDS/PROTEIN HYDROLYS 30 ML LIQUID.PKT PO SCH (17:45)
[2023-03-05] MEDS: ATORVASTATIN CA 40 MG TABLET (FP) PO SCH ×2 (21:45→21:50)
[2023-03-06] MEDS: AMINO ACIDS/PROTEIN HYDROLYS 30 ML LIQUID.PKT PO SCH ×4 (09:11→17:46)
[2023-03-06] MEDS: PHENobarbital 30 MG TABLET PO SCH ×2 (10:48→21:15)
[2023-03-06] MEDS: MULTIVIT-MINERALS ORAL LIQUID PO SCH (10:48)
[2023-03-06] MEDS: COLLAGENASE CLOSTRIDIUM HIST. 30 GRAMS TUBE TP SCH (10:49)
[2023-03-06] MEDS: PANTOPRAZOLE 40 MG TABLET PO SCH (10:49)
[2023-03-06] MEDS: ASCORBIC ACID 250 MG TABLET (FP) PO SCH (10:49)
[2023-03-06] MEDS: D5-1/2NS+20 MEQ KCL - 20 MEQ/1,000 ML INFUS.BAG IV SCH (16:29)
[2023-03-06 17:08] LABS: POTASSIUM 3.6 mmol/L (3.5-5.1)
[2023-03-06 17:10] LABS: BLOOD UREA NITROGEN 10.7 mg/dL (7-18); CALCIUM 8.5 mg/dL (8.5-10.1)
[2023-03-06 17:14] LABS: CREATININE 1.3 mg/dL (0.55-1.3)
[2023-03-06] MEDS ORDERED: DEXTROSE 50%-WATER 25 GM/50 ML DISP.SYRIN IVPUSH ONE (17:44)
[2023-03-06] MEDS: LEVOTHYROXINE 100 MCG, LEVOTHYROXINE 75 MCG PO SCH (19:16)
[2023-03-06] MEDS: ATORVASTATIN CA 40 MG TABLET (FP) PO SCH (21:15)
[2023-03-07] MEDS: D5-1/2NS+20 MEQ KCL - 20 MEQ/1,000 ML INFUS.BAG IV SCH ×2 (05:58→17:39)
[2023-03-07] MEDS: LEVOTHYROXINE 100 MCG, LEVOTHYROXINE 75 MCG PO SCH (06:15)
[2023-03-07] MEDS: AMINO ACIDS/PROTEIN HYDROLYS 30 ML LIQUID.PKT PO SCH ×3 (10:13→17:39)
[2023-03-07] MEDS: MULTIVIT-MINERALS ORAL LIQUID PO SCH (10:39)
[2023-03-07] MEDS: COLLAGENASE CLOSTRIDIUM HIST. 30 GRAMS TUBE TP SCH (10:40)
[2023-03-07] MEDS: PANTOPRAZOLE 40 MG TABLET PO SCH (10:40)
[2023-03-07] MEDS: PHENobarbital 30 MG TABLET PO SCH ×2 (10:40→21:16)
[2023-03-07] MEDS: ASCORBIC ACID 250 MG TABLET (FP) PO SCH (10:41)
[2023-03-07] MEDS ORDERED: HALOPERIDOL LACTATE 5 MG/ML IM ONE (12:39)
[2023-03-07] MEDS: ATORVASTATIN CA 40 MG TABLET (FP) PO SCH (21:16)
[2023-03-08] MEDS: LEVOTHYROXINE 100 MCG, LEVOTHYROXINE 75 MCG PO SCH (06:13)
[2023-03-08] MEDS: AMINO ACIDS/PROTEIN HYDROLYS 30 ML LIQUID.PKT PO SCH ×3 (08:18→17:36)
[2023-03-08] MEDS: PHENobarbital 30 MG TABLET PO SCH ×2 (11:15→21:41)
[2023-03-08] MEDS: MULTIVIT-MINERALS ORAL LIQUID PO SCH (11:15)
[2023-03-08] MEDS: PANTOPRAZOLE 40 MG TABLET PO SCH (11:16)
[2023-03-08] MEDS: ASCORBIC ACID 250 MG TABLET (FP) PO SCH (11:16)
[2023-03-08] MEDS: COLLAGENASE CLOSTRIDIUM HIST. 30 GRAMS TUBE TP SCH (11:17)
[2023-03-08] MEDS: QUEtiapine FUMARATE 25 MG TABLET PO SCH (21:40)
[2023-03-08] MEDS: ATORVASTATIN CA 40 MG TABLET (FP) PO SCH (21:41)
[2023-03-09] MEDS: D5-1/2NS+20 MEQ KCL - 20 MEQ/1,000 ML INFUS.BAG IV SCH ×2 (02:15→16:14)
[2023-03-09] MEDS: LEVOTHYROXINE 100 MCG, LEVOTHYROXINE 75 MCG PO SCH (06:13)
[2023-03-09] MEDS: COLLAGENASE CLOSTRIDIUM HIST. 30 GRAMS TUBE TP SCH (12:00)
[2023-03-09] MEDS: AMINO ACIDS/PROTEIN HYDROLYS 30 ML LIQUID.PKT PO SCH ×2 (12:19→17:26)
[2023-03-09] MEDS: ASCORBIC ACID 250 MG TABLET (FP) PO SCH (12:20)
[2023-03-09] MEDS: PANTOPRAZOLE 40 MG TABLET PO SCH (12:20)
[2023-03-09] MEDS: MULTIVIT-MINERALS ORAL LIQUID PO SCH (12:20)
[2023-03-09] MEDS: PHENobarbital 30 MG TABLET PO SCH ×2 (12:20→21:42)
[2023-03-09] MEDS: QUEtiapine FUMARATE 25 MG TABLET PO SCH (21:42)
[2023-03-09] MEDS: ATORVASTATIN CA 40 MG TABLET (FP) PO SCH (21:42)
[2023-03-09 22:19] LABS: EOS % 1.8 % (0-4.5); HEMOGLOBIN 13.9 GM/dL (10.7-15.3); LYMPH % 46.8 % (8-40); MCH 28.6 pg (25.7-33.7); MCHC 33.2 g/dl (32.0-36.0); MEAN PLT VOLUME 9.9 fl (7.5-11.1); MONO % 7.1 % (3.8-10.2); NEUT % 42.3 % (42.8-82.8); PLATELET COUNT 244 10^3/uL (134-434); RBC 4.88 M/mm3 (3.60-5.2); RDW 15.8 % (11.6-15.6); WHITE BLOOD COUNT 7.7 K/mm3 (4.0-10.0)
[2023-03-10] MEDS: LEVOTHYROXINE 100 MCG, LEVOTHYROXINE 75 MCG PO SCH (06:04)
[2023-03-10 06:39] VITALS: RESP 18
[2023-03-10] MEDS: AMINO ACIDS/PROTEIN HYDROLYS 30 ML LIQUID.PKT PO SCH ×3 (08:00→18:00)
[2023-03-10] MEDS: MULTIVIT-MINERALS ORAL LIQUID PO SCH (12:36)
[2023-03-10] MEDS: PHENobarbital 30 MG TABLET PO SCH (12:36)
[2023-03-10] MEDS: ASCORBIC ACID 250 MG TABLET (FP) PO SCH (12:37)
[2023-03-10] MEDS: PANTOPRAZOLE 40 MG TABLET PO SCH (12:37)
[2023-03-10] MEDS: COLLAGENASE CLOSTRIDIUM HIST. 30 GRAMS TUBE TP SCH (13:00)
[2023-03-10 14:22] VITALS: BP 129/43; PULSE 72; TEMP 98.5
[2023-03-10] MEDS: D5-1/2NS+20 MEQ KCL - 20 MEQ/1,000 ML INFUS.BAG IV SCH (18:00)
== END 2023-03-10 20:08 | DRG 641 ==
LOC: JER 10:15 → UNDOADMIN 12:36 → JERBED 12:36 → JASUSAT 18:07 → JERBED 03-03 09:42 → J5S 03-03 16:21
PROVIDERS: ADMIT Family Medicine; ATTEND Family Medicine
DX: E87.0 Hyperosmolality and hypernatremia (principal); E23.0 Hypopituitarism; N17.9 Acute kidney failure, unspecified; E78.5 Hyperlipidemia, unspecified; G40.909 Epilepsy, unspecified, not intractable, without status epilepticus; E03.9 Hypothyroidism, unspecified; I10 Essential (primary) hypertension; R79.89 Other specified abnormal findings of blood chemistry; E87.6 Hypokalemia; L89.310 Pressure ulcer of right buttock, unstageable; E66.9 Obesity, unspecified; Z68.32 Body mass index [BMI] 32.0-32.9, adult; Z95.0 Presence of cardiac pacemaker
CPT/HCPCS: 36415; 80048; 80053; 81003; 82024; 82436; 82962; 83690; 83735; 83930; 84133; 84300; 84439; 84443; 85025; 85027; 87086; 87635; 93005; 93010; 97116-GP; 97161-GP; 99285-25